=== PATIENT | female | born 1965 | race Hispanic/Latino ===

== ENCOUNTER 2017-04-11 13:59 | Emergency (ER) | payer MEDICAID ==
--- NOTE | 2017-04-11 16:23 | XRay Report ---
FINAL REPORT PROCEDURE: XR SPINE CERVICAL 2-3V TECHNIQUE: Cervical spine radiographs, minimum of four views, including AP, lateral and bilateral oblique projections. HISTORY: NECK PAIN / SWELLING COMPARISON: No prior studies are available for comparison. FINDINGS: Limited evaluation of lower cervical vertebrae due to overlying structures. Postsurgical changes are noted at C4-5 and C5-6. Vertebral body heights and alignment of the upper cervical spine are preserved. Odontoid process appears intact. IMPRESSION: Limitations as above. No acute abnormality is seen. If there are persistent symptoms, further evaluation with CT could be obtained.
[2017-04-11] MEDS ORDERED: DECADRON IM STA (19:05)
[2017-04-11] MEDS ORDERED: PERCOCET 5/325 PO ONE (19:06)
[2017-04-11 20:39] VITALS: BP 127/77
--- NOTE | 2017-04-11 20:53 | Emergency Department Report ---
Entered by LOUIE KAMARA, acting as scribe for OSWALDO THIBODEUAX PA. ED Neck Pain/Injury HPI - General Chief Complaint: Neck Pain/Injury Stated Complaint: NECK PAIN/SWOLLEN Time Seen by Provider: 04/11/17 19:40 Mode of arrival: Ambulatory Limitations: No Limitations - History of Present Illness Initial Comments: 51 y/o female with PMHx of arthritis, asthma, diabetes, GERD, migraines and seizures, presents to the ED c/o pain to back of neck that began 1 week ago. Associated symptoms include swelling and pain to neck but she denies fever and chills. Pain is described as sharp and 9/10 on a severity scale. Patient states she "felt a pop in back of neck last night." No alleviating or aggravating factors. PSHx of neck surgery approximately 1 year ago[address] Patient sees Dr. Javon Estrella who is a neurosurgeon that did her next surgery and she says she has chronic neck problem but is just gotten worse. He denies any new injury to her neck. She has an appointment with Dr. Javon Malone later on this month. Denies any numbness or tingling to extremities. NKDA. GAN Complaint: neck pain Onset/Timin -: week(s) Place: home Severity: severe Severity scale (0 -10): 9 Quality: sharp Consistency: constant Improves With: immobilization Worsens With: movement of neck Context: other (chronic neck pain status post surgery) Associated Symptoms: nausea. denies: headache, fever, numbness, tingling, weakness, vertigo, difficulty walking, swollen glands, difficulty swallowing, vomiting Treatments Prior to Arrival: none - Related Data Home Medications Medication Instructions Recorded Confirmed Last Taken Albuterol Sulfate [Albuterol 0.63% 0.63 mg IH Q6H 01/21/15 09/23/16 04/22/15 NEBS] Aspirin [Aspirin BABY CHEW TAB] 81 mg PO QPM 01/21/15 09/23/16 04/22/15 Beclomethasone Dipropionat(Nf) 2 inhalation IH TID 01/21/15 09/23/16 04/22/15 [Qvar 40MCG] Diazepam 5 mg PO TID 01/21/15 09/23/16 04/22/15 Fluticasone [Flonase] 1 spray NS QDAY 01/21/15 09/23/16 04/22/15 Ranitidine HCl [Ranitidine 150mg 150 mg PO BID 01/21/15 09/23/16 04/22/15 Cap] Previous Rx's Medication Instructions Recorded Last Taken Type Ondansetron [Zofran Odt] 4 mg PO Q8HR #20 tab.rapdis 10/24/15 Unknown Rx ALBUTEROL Inhaler [ProAir HFA 2 puff IH QID PRN #1 inhalation 09/15/16 Unknown Rx Inhaler] Prednisone [predniSONE 10 mg 10 mg PO .TAPER #1 tab.ds.pk 09/15/16 Unknown Rx (6-Day Pack, 21 Tabs)] Citalopram [celeXA] 20 mg PO QHS #30 tablet 09/25/16 Unknown Rx Fluticasone/Salmeterol [Advair 1 puff IH BID #1 blst.w.dev 09/25/16 Unknown Rx Diskus 500-50 mcg] Montelukast [Singulair] 10 mg PO QPM #30 tablet 09/25/16 Unknown Rx Prednisone [predniSONE 10 mg 10 mg PO .TAPER #1 tab.ds.pk 09/25/16 Unknown Rx (6-Day Pack, 21 Tabs)] Spironolactone [Aldactone] 25 mg PO QDAY #30 tablet 09/25/16 Unknown Rx metFORMIN [Glucophage] 500 mg PO QAM #60 tablet 09/25/16 Unknown Rx traMADol [Ultram 50 MG tab] 50 mg PO Q6HR PRN #20 tablet 04/11/17 Unknown Rx Allergies Allergy/AdvReac Type Severity Reaction Status Date / Time topiramate [From Topamax] Allergy Seizure Verified 04/11/17 14:53 shellfish Allergy Hives Uncoded 04/11/17 14:53 paragoric AdvReac Unknown Uncoded 04/11/17 14:53 ED Review of Systems Comment: All other systems reviewed and negative Constitutional: denies: chills, fever, weakness Eyes: denies: eye pain, eye discharge ENT: denies: throat pain Respiratory: no symptoms reported Cardiovascular: denies: chest pain, palpitations, edema, syncope Gastrointestinal: denies: nausea, vomiting, diarrhea Musculoskeletal: back pain, arthralgia, other (neck pain and swelling). denies : joint swelling Skin: denies: rash Neurological: other. denies: headache, weakness, numbness, paresthesias, confusion, abnormal gait, vertigo ED Past Medical Hx - Past Medical History Previous Medical History?: Yes Hx Congestive Heart Failure: No Hx Diabetes: Yes Hx GERD: Yes Hx Arthritis: Yes Hx Headaches / Migraines: Yes Hx Seizures: Yes Hx Asthma: Yes Hx COPD: No Hx Dementia: No Additional medical history: scoliosis, Nerve problems, pinched nerves, neck problems, back problems., "TIA". FIBROMYALGIA - Surgical History Past Surgical History?: Yes Hx Cholecystectomy: Yes Hx Appendectomy: Yes Additional Surgical History: Tubal ligation. NECK SURGERY 2016 - Family History Family history: hypertension - Social History Smoking Status: Never Smoker Substance Use Type: None - Medications Home Medications: Home Medications Medication Instructions Recorded Confirmed Last Taken Type Albuterol Sulfate [Albuterol 0.63% 0.63 mg IH Q6H 01/21/15 09/23/16 04/22/15 History NEBS] Aspirin [Aspirin BABY CHEW TAB] 81 mg PO QPM 01/21/15 09/23/16 04/22/15 History Beclomethasone Dipropionat(Nf) 2 inhalation IH TID 01/21/15 09/23/16 04/22/15 History [Qvar 40MCG] Diazepam 5 mg PO TID 01/21/15 09/23/16 04/22/15 History Fluticasone [Flonase] 1 spray NS QDAY 01/21/15 09/23/16 04/22/15 History Ranitidine HCl [Ranitidine 150mg 150 mg PO BID 01/21/15 09/23/16 04/22/15 History Cap] Ondansetron [Zofran Odt] 4 mg PO Q8HR #20 tab.rapdis 10/24/15 09/23/16 Unknown Rx ALBUTEROL Inhaler [ProAir HFA 2 puff IH QID PRN #1 inhalation 09/15/16 09/23/16 Unknown Rx Inhaler] Prednisone [predniSONE 10 mg 10 mg PO .TAPER #1 tab.ds.pk 09/15/16 09/23/16 Unknown Rx (6-Day Pack, 21 Tabs)] Citalopram [celeXA] 20 mg PO QHS #30 tablet 09/25/16 Unknown Rx Fluticasone/Salmeterol [Advair 1 puff IH BID #1 blst.w.dev 09/25/16 Unknown Rx Diskus 500-50 mcg] Montelukast [Singulair] 10 mg PO QPM #30 tablet 09/25/16 Unknown Rx Prednisone [predniSONE 10 mg 10 mg PO .TAPER #1 tab.ds.pk 09/25/16 Unknown Rx (6-Day Pack, 21 Tabs)] Spironolactone [Aldactone] 25 mg PO QDAY #30 tablet 09/25/16 Unknown Rx metFORMIN [Glucophage] 500 mg PO QAM #60 tablet 09/25/16 Unknown Rx traMADol [Ultram 50 MG tab] 50 mg PO Q6HR PRN #20 tablet 04/11/17 Unknown Rx ED Physical Exam - General Limitations: No Limitations General appearance: alert, in no apparent distress - Head Head exam: Present: atraumatic, normocephalic, normal inspection - Eye Eye exam: Present: normal appearance, PERRL, EOMI Pupils: Present: normal accommodation - ENT ENT exam: Present: normal exam, normal orophraynx, mucous membranes moist - Neck Neck exam: Present: normal inspection, full ROM. Absent: tenderness, meningismus, lymphadenopathy - Expanded Neck Exam Expanded Neck exam: Absent: tenderness, midline deformity, anterior neck swelling, tracheal deviation - Respiratory Respiratory exam: Present: normal lung sounds bilaterally. Absent: wheezes, rales, rhonchi, stridor, chest wall tenderness, accessory muscle use - Cardiovascular Cardiovascular Exam: Present: regular rate, normal rhythm, normal heart sounds - GI/Abdominal GI/Abdominal exam: Present: soft, normal bowel sounds. Absent: distended, tenderness, guarding, rebound, rigid - Extremities Exam Extremities exam: Present: normal inspection, full ROM, normal capillary refill. Absent: tenderness, pedal edema, joint swelling, calf tenderness - Back Exam Back exam: Present: normal inspection, full ROM. 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 Normal 2 point discrimination.). Absent: motor sensory deficit - Psychiatric Psychiatric exam: Present: normal affect, normal mood - Skin Skin exam: Present: warm, dry, intact, normal color. Absent: rash ED Course Vital Signs 04/11/17 04/11/17 04/11/17 14:55 19:28 20:38 Temperature 98.6 F Pulse Rate 91 H 67 Respiratory 17 18 18 Rate Blood Pressure 121/83 Blood Pressure 127/77 [Left] O2 Sat by Pulse 97 100 Oximetry - Reevaluation(s) Reevaluation #1: 04/11/17 20:45 Patient given Percocet 5/325 2 tablets in the emergency room for chronic neck pain and she was also given Decadron 10 mg IM. 04/11/17 20:45 ED Medical Decision Making - Radiology Data Radiology results: report reviewed X-ray of C-spine reveals no acute findings. Patient has hardware from previous surgery. - Medical Decision Making ED Course: Sent here for acute exacerbation of chronic neck pain without any injury. I discussed the patient had x-ray of her C-spine did not show any acute findings. Had surgery with Dr. Javon Malone is following her and she has an appointment to see her later on this month. X-ray of the C-spine revealed no acute finding except for from previous surgery. Patient is neurologically intact without any abnormality neck exam.Patient given Percocet 5/325 2 tablets in the emergency room for chronic neck pain and she was also given Decadron 10 mg IM. Patient pain relieved with Percocet and Decadron. I discussed the diagnosis and treatment plan and she was understanding. Disposition discharged home to follow up with her neurosurgeon as scheduled and she was given prescription for Ultram. Discharged from ER in stable condition with her family member. ED Disposition Clinical Impression: Arthralgia, neck, Chronic neck pain Disposition: - TO HOME OR SELFCARE Is pt being admited?: No Does the pt Need Aspirin: No Condition: Stable Instructions: Arthralgia (ED), Chronic Pain (ED) Additional Instructions: Please call Dr. [place] Malone on Thursday to let her know that we return the emergency for acute exacerbation of chronic neck pain. Please keep your appointment with the neurosurgeon for management of chronic neck pain. Prescriptions: traMADol [Ultram 50 MG tab] 50 mg PO Q6HR PRN #20 tablet PRN Reason: Pain Referrals: PRIMARY CARE, [Primary Care Provider] - 3-5 Days FACUNDO SABILLON MD [Staff Physician] - 04/13/17 Forms: Accompanied Note, Work/School Release Form(ED) This documentation as recorded by the ANH marquez ELIZABETH,accurately reflects the service I personally performed and the decisions made by me,OSWALDO THIBODEAUX, PA.
== END 2017-04-11 21:14 | disposition home or self-care (01) ==
LOC: ED 13:59
DX: M54.2 Cervicalgia (principal); G89.29 Other chronic pain; E11.9 Type 2 diabetes mellitus without complications; K21.9 Gastro-esophageal reflux disease without esophagitis; G43.909 Migraine, unspecified, not intractable, without status migrainosus; M19.90 Unspecified osteoarthritis, unspecified site; J45.909 Unspecified asthma, uncomplicated; R56.9 Unspecified convulsions; Z90.49 Acquired absence of other specified parts of digestive tract; Z91.013 Allergy to seafood; Z88.8 Allergy status to other drugs, medicaments and biological substances; Z91.018 Allergy to other foods
CPT/HCPCS: 72040; 96372; 99283; J1100

== ENCOUNTER 2018-02-03 14:46 | Emergency (ER) | payer MEDICAID ==
[2018-02-03] MEDS ORDERED: LASIX PO ONE (18:57)
--- NOTE | 2018-02-03 18:58 | Emergency Department Report ---
Blank Doc - Documentation Documentation: Patient is a 52-year-old female who is presenting with 2 days of bilateral lower extremity edema. Patient states she's had edema before was usually after using prednisone which she is not on currently. Patient also states that she is has some dyspnea with exertion as well as some chest tightness after running some errands today. Patient states that this is improved with rest. Patient states walking doesn't make her short of breath now which she didn't in the past. Patient denies any resting chest pain cough shortness of breath fevers chills at this time. Patient will have laboratory studies ordered chest x-ray BNP and troponin. A
[2018-02-03 19:09] LABS: Basophils # (Auto) 0.1 K/mm3 (0.0-0.1); Basophils % (Auto) 0.8 % (0.0-1.8); Eosinophils # (Auto) 0.3 K/mm3 (0.0-0.4); Eosinophils % (Auto) 2.8 % (0.0-4.3); Hematocrit 39.2 % (30.3-42.9); Hemoglobin 13.2 gm/dl (10.1-14.3); Lymphocytes # (Auto) 2.8 K/mm3 (1.2-5.4); Lymphocytes % (Auto) 29.6 % (13.4-35.0); Mean Corpuscular HGB Conc 34 % (30-34); Mean Corpuscular Hemoglobin 31 pg (28-32); Mean Corpuscular Volume 91 fl (79-97); Monocytes # (Auto) 0.8 K/mm3 (0.0-0.8); Monocytes % (Auto) 8.9 % (0.0-7.3); Platelet Count 263 K/mm3 (140-440); Red Blood Count 4.32 M/mm3 (3.65-5.03); Red Cell Distribution Width 13.4 % (13.2-15.2)
[2018-02-03 19:20] LABS: BUN/Creatinine Ratio 30; Blood Urea Nitrogen 21 mg/dL (7-17); Calcium 8.6 mg/dL (8.4-10.2); Hemolysis Index 9
--- NOTE | 2018-02-03 20:22 | XRay Report ---
FINAL REPORT EXAM: XR CHEST ROUTINE 2V HISTORY: dyspnea wit exertion TECHNIQUE: upright single view chest PRIORS: Comparison is November 19, 2017 FINDINGS: Cardiac and mediastinal contours are unremarkable. No focal pulmonary infiltrate is identified. No pleural fluid collection seen. Pulmonary vasculature is unremarkable. IMPRESSION: Negative single-view chest
--- NOTE | 2018-02-03 21:41 | Emergency Department Report ---
HPI - General Chief Complaint: Chest Pain Time Seen by Provider: 02/03/18 18:50 - HPI HPI: Room 18 The patient is a 52-year-old female presented with a chief complaint chest pain. The patient states for the past 2 months she's had exertional chest pain and dyspnea on exertion. Patient states that normally resolves with rest. The patient states today while running errands or chest tightness return but did not resolve with rest. Patient states she continued to have chest tightness for a 1.5 hours associated with shortness of breath. Patient denies nausea/ vomiting or diaphoresis. Patient states she has not had a stress test in over 5 years and has never had a cardiac catheterization. The patient currently denies chest pain Location: Chest Duration: [See above] Quality: Tightness Severity: Currently 0/10 Modifying factors: Brought on by exertion, see above Context: [see above] Mode of transportation: Unknown ED Past Medical Hx - Past Medical History Hx Diabetes: Yes Hx GERD: Yes Hx Arthritis: Yes Hx Headaches / Migraines: Yes Hx Seizures: Yes Hx Asthma: Yes Additional medical history: scoliosis, Nerve problems, pinched nerves, neck problems, back problems., "TIA". FIBROMYALGIA - Surgical History Hx Cholecystectomy: Yes Hx Appendectomy: Yes Additional Surgical History: Tubal ligation. NECK SURGERY 2016 - Family History Family history: no significant - Social History Smoking Status: Never Smoker Substance Use Type: None (denies illicit drug use) - Medications Home Medications: Home Medications Medication Instructions Recorded Confirmed Last Taken Type Albuterol Sulfate [Albuterol 0.63% 0.63 mg IH Q6H 01/21/15 09/23/16 2 Days Ago History NEBS] ~11/18/17 Aspirin [Aspirin BABY CHEW TAB] 81 mg PO QPM 01/21/15 09/23/16 2 Days Ago History ~11/18/17 Diazepam 5 mg PO TID 01/21/15 09/23/16 2 Days Ago History ~11/18/17 Fluticasone [Flonase] 1 spray NS QDAY 01/21/15 09/23/16 04/22/15 History Ranitidine HCl [Ranitidine 150mg 150 mg PO BID 01/21/15 09/23/16 2 Days Ago History Cap] ~11/18/17 Ondansetron [Zofran ODT TAB] 4 mg PO Q8HR #20 tab.rapdis 10/24/15 09/23/16 Unknown Rx ALBUTEROL Inhaler [ProAir HFA 2 puff IH QID PRN #1 inhalation 09/15/16 09/23/16 2 Days Ago Rx Inhaler] ~11/18/17 Fluticasone/Salmeterol [Advair 1 puff IH BID #1 blst.w.dev 09/25/16 2 Days Ago Rx Diskus 500-50 mcg] ~11/18/17 traMADol [Ultram 50 MG tab] 50 mg PO Q6HR PRN #20 tablet 04/11/17 11/20/17 Unknown Rx Amitriptyline 100 mg PO QHS 11/20/17 11/20/17 2 Days Ago History ~11/18/17 Bumetanide 0.5 mg PO QAM 11/20/17 11/20/17 2 Days Ago History ~11/18/17 Buspar 15 mg PO BID 11/20/17 11/20/17 2 Days Ago History ~11/18/17 Citalopram [celeXA] 40 mg PO QHS 11/20/17 11/20/17 2 Days Ago History ~11/18/17 Lisinopril 10 mg PO QAM 11/20/17 11/20/17 2 Days Ago History ~11/18/17 Prednisone [predniSONE 5 mg (6-Day 5 mg PO .TAPER #1 tab.ds.pk 11/20/17 Unknown Rx Pack, 21 Tabs)] metFORMIN [Glucophage] 500 mg PO BID 11/20/17 11/20/17 2 Days Ago History ~11/18/17 ED Review of Systems ROS: Stated complaint: CHEST PAIN Other details as noted in HPI Constitutional: denies: diaphoresis Respiratory: shortness of breath, SOB with exertion Cardiovascular: chest pain, dyspnea on exertion Gastrointestinal: denies: nausea, vomiting Physical Exam - Physical Exam Vital Signs: Vital Signs 02/03/18 15:04 Temperature 98.6 F Pulse Rate 78 Respiratory 16 Rate Blood Pressure 155/87 O2 Sat by Pulse 98 Oximetry Physical Exam: GENERAL: The patient is well-developed well-nourished female sitting in chair not appearing to be in acute distress. [] HEENT: Normocephalic. Atraumatic. Extraocular motions are intact. Patient has moist mucous membranes. NECK: Supple. Trachea midline CHEST/LUNGS: Clear to auscultation. There is no respiratory distress noted. HEART/CARDIOVASCULAR: Regular. There is no tachycardia. There is no gallop rub or murmur. ABDOMEN: Abdomen is soft, nontender. Patient has normal bowel sounds. There is no abdominal distention. SKIN: There is no rash. There is no edema. There is no diaphoresis. NEURO: The patient is awake, alert, and oriented. The patient is cooperative. The patient has normal speech MUSCULOSKELETAL: There is no evidence of acute injury. ED Course Vital Signs 02/03/18 15:04 Temperature 98.6 F Pulse Rate 78 Respiratory 16 Rate Blood Pressure 155/87 O2 Sat by Pulse 98 Oximetry ED Medical Decision Making - Lab Data Result diagrams: 02/03/18 18:59 02/03/18 18:59 Laboratory Tests 02/03/18 02/03/18 18:59 18:59 WBC 9.4 RBC 4.32 Hgb 13.2 Hct 39.2 MCV 91 MCH 31 MCHC 34 RDW 13.4 Plt Count 263 Lymph % (Auto) 29.6 [place] % (Auto) 8.9 H Eos % (Auto) 2.8 Baso % (Auto) 0.8 Lymph # 2.8 [place] # 0.8 Eos # 0.3 Baso # 0.1 Seg Neutrophils % 57.9 Seg Neutrophils # 5.4 Sodium 141 Potassium 4.2 Chloride 100.6 Carbon Dioxide 26 Anion Gap 19 BUN 21 H Creatinine 0.7 Estimated GFR > 60 BUN/Creatinine Ratio 30 Glucose 107 H Calcium 8.6 Troponin T < 0.010 NT-Pro-B Natriuret Pep 300.9 - EKG Data -: EKG Interpreted by Me EKG shows normal: sinus rhythm Rate: normal - EKG Data When compared to previous EKG there are: previous EKG unavailable Interpretation: other (no ischemic changes seen) - Radiology Data Radiology results: report reviewed, image reviewed (chest x-ray) interpreted by me: Chest x-ray-no focal infiltrates, no pneumothorax - Medical Decision Making I discussed with the patient my concern for her chest pain which is straight from her baseline exertional chest pain. I explained that she may be having an acute coronary syndrome at this moment and that I recommend she be admitted to the hospital. Patient verbalized understanding of increased morbidity and/or mortality should she leave the hospital AGAINST MEDICAL ADVICE station must take care of her family members at home. Patient advised to return to the hospital neatly should she change her mind - Differential Diagnosis ACS, unstable angina, exertional chest pain, GERD, pericarditis Critical care attestation.: If time is entered above; I have spent that time in minutes in the direct care of this critically ill patient, excluding procedure time. ED Disposition Clinical Impression: Unstable angina, Chest pain Disposition: [id number]-07 LEFT AGAINST MED ADVICE Is pt being admited?: No Does the pt Need Aspirin: Yes Condition: Undetermined Instructions: Angina (ED), Chest Pain (ED) Additional Instructions: Return to the emergency department immediately should you change your mind or develop worsening symptoms, fever, inability to tolerate food or liquid or any other concerns. Referrals: PRIMARY CARE, [Primary Care Provider] - 3-5 Days Time of Disposition: 21:37 (patient leaving AMA)
[2018-02-03 22:07] VITALS: BP 133/82
== END 2018-02-03 22:05 | disposition left against medical advice (07) ==
LOC: ED 14:46
DX: R07.89 Other chest pain (principal); E11.9 Type 2 diabetes mellitus without complications; K21.9 Gastro-esophageal reflux disease without esophagitis; M19.90 Unspecified osteoarthritis, unspecified site; G43.909 Migraine, unspecified, not intractable, without status migrainosus
CPT/HCPCS: 36415; 71046; 80048; 83880; 84484; 85025; 93005; 93010; 99284

== ENCOUNTER 2018-04-29 17:21 | Emergency (ER) | payer MEDICAID ==
[2018-04-29] MEDS ORDERED: PROVENTIL IH ONE ×3 (17:55→18:12)
[2018-04-29] MEDS ORDERED: ATROVENT IH ONE ×3 (17:55→18:12)
[2018-04-29] MEDS ORDERED: DELTASONE PO ONE (18:28)
--- NOTE | 2018-04-29 18:33 | Emergency Department Report ---
ED Shortness of Breath HPI - General Chief Complaint: Dyspnea/Respdistress Stated Complaint: SOB Time Seen by Provider: 04/29/18 18:28 Source: patient Mode of arrival: Ambulatory Limitations: No Limitations - History of Present Illness Initial Comments: Ms Hawley is a 52 year-old woman with hx of HTN, COPD, fibromyalgia, DM who presents with shortness of breath. [place] like she was becoming more short of breath this afternoon. Took two breathing treatments at home but they were not helping. Took 10mg prednisone as well. Feels like previous COPD exacerabtions. No chest pain. No orthopnea. Normal PO. No fevers. No cough. No sputum. No other complaints. MD Complaint: shortness of breath -: Sudden Worsens With: exertion Known History Of: COPD Associated Symptoms: denies other symptoms Treatments Prior to Arrival: bronchodilator - Related Data Home Oxygen Therapy: No Home Medications Medication Instructions Recorded Confirmed Last Taken Albuterol Sulfate [Albuterol 0.63% 0.63 mg IH Q6H 01/21/15 09/23/16 2 Days Ago NEBS] ~11/18/17 Aspirin [Aspirin BABY CHEW TAB] 81 mg PO QPM 01/21/15 09/23/16 2 Days Ago ~11/18/17 Diazepam 5 mg PO TID 01/21/15 09/23/16 2 Days Ago ~11/18/17 Fluticasone [Flonase] 1 spray NS QDAY 01/21/15 09/23/16 04/22/15 Ranitidine HCl [Ranitidine 150mg 150 mg PO BID 01/21/15 09/23/16 2 Days Ago Cap] ~11/18/17 Amitriptyline 100 mg PO QHS 11/20/17 11/20/17 2 Days Ago ~11/18/17 Bumetanide 0.5 mg PO QAM 11/20/17 11/20/17 2 Days Ago ~11/18/17 Buspar 15 mg PO BID 11/20/17 11/20/17 2 Days Ago ~11/18/17 Citalopram [celeXA] 40 mg PO QHS 11/20/17 11/20/17 2 Days Ago ~11/18/17 Lisinopril 10 mg PO QAM 11/20/17 11/20/17 2 Days Ago ~11/18/17 metFORMIN [Glucophage] 500 mg PO BID 11/20/17 11/20/17 2 Days Ago ~11/18/17 Previous Rx's Medication Instructions Recorded Last Taken Type Ondansetron [Zofran ODT TAB] 4 mg PO Q8HR #20 tab.rapdis 10/24/15 Unknown Rx ALBUTEROL Inhaler [ProAir HFA 2 puff IH QID PRN #1 inhalation 09/15/16 2 Days Ago Rx Inhaler] ~11/18/17 Fluticasone/Salmeterol [Advair 1 puff IH BID #1 blst.w.dev 09/25/16 2 Days Ago Rx Diskus 500-50 mcg] ~11/18/17 traMADol [Ultram 50 MG tab] 50 mg PO Q6HR PRN #20 tablet 04/11/17 Unknown Rx Prednisone [predniSONE 5 mg (6-Day 5 mg PO .TAPER #1 tab.ds.pk 11/20/17 Unknown Rx Pack, 21 Tabs)] Prednisone [predniSONE 10 mg 10 mg PO .TAPER #1 tab.ds.pk 04/29/18 Unknown Rx (6-Day Pack, 21 Tabs)] Allergies Allergy/AdvReac Type Severity Reaction Status Date / Time topiramate [From Topamax] Allergy Seizure Verified 02/03/18 15:04 shellfish Allergy Hives Uncoded 04/11/17 14:53 paragoric AdvReac Unknown Uncoded 04/11/17 14:53 ED Review of Systems ROS: Stated complaint: SOB Other details as noted in HPI Comment: All other systems reviewed and negative ED Past Medical Hx - Past Medical History Previous Medical History?: Yes Hx Congestive Heart Failure: No Hx Diabetes: Yes Hx GERD: Yes Hx Arthritis: Yes Hx Headaches / Migraines: Yes Hx Seizures: Yes Hx Asthma: Yes Hx COPD: No Hx Dementia: No Additional medical history: scoliosis, Nerve problems, pinched nerves, neck problems, back problems., "TIA". FIBROMYALGIA - Surgical History Past Surgical History?: Yes Hx Cholecystectomy: Yes Hx Appendectomy: Yes Additional Surgical History: Tubal ligation. NECK SURGERY 2016 - Social History Smoking Status: Never Smoker Substance Use Type: Alcohol, Prescribed - Medications Home Medications: Home Medications Medication Instructions Recorded Confirmed Last Taken Type Albuterol Sulfate [Albuterol 0.63% 0.63 mg IH Q6H 01/21/15 09/23/16 2 Days Ago History NEBS] ~11/18/17 Aspirin [Aspirin BABY CHEW TAB] 81 mg PO QPM 01/21/15 09/23/16 2 Days Ago History ~11/18/17 Diazepam 5 mg PO TID 01/21/15 09/23/16 2 Days Ago History ~11/18/17 Fluticasone [Flonase] 1 spray NS QDAY 01/21/15 09/23/16 04/22/15 History Ranitidine HCl [Ranitidine 150mg 150 mg PO BID 01/21/15 09/23/16 2 Days Ago History Cap] ~11/18/17 Ondansetron [Zofran ODT TAB] 4 mg PO Q8HR #20 tab.rapdis 10/24/15 09/23/16 Unknown Rx ALBUTEROL Inhaler [ProAir HFA 2 puff IH QID PRN #1 inhalation 09/15/16 09/23/16 2 Days Ago Rx Inhaler] ~11/18/17 Fluticasone/Salmeterol [Advair 1 puff IH BID #1 blst.w.dev 09/25/16 2 Days Ago Rx Diskus 500-50 mcg] ~11/18/17 traMADol [Ultram 50 MG tab] 50 mg PO Q6HR PRN #20 tablet 04/11/17 11/20/17 Unknown Rx Amitriptyline 100 mg PO QHS 11/20/17 11/20/17 2 Days Ago History ~11/18/17 Bumetanide 0.5 mg PO QAM 11/20/17 11/20/17 2 Days Ago History ~11/18/17 Buspar 15 mg PO BID 11/20/17 11/20/17 2 Days Ago History ~11/18/17 Citalopram [celeXA] 40 mg PO QHS 11/20/17 11/20/17 2 Days Ago History ~11/18/17 Lisinopril 10 mg PO QAM 11/20/17 11/20/17 2 Days Ago History ~11/18/17 Prednisone [predniSONE 5 mg (6-Day 5 mg PO .TAPER #1 tab.ds.pk 11/20/17 Unknown Rx Pack, 21 Tabs)] metFORMIN [Glucophage] 500 mg PO BID 11/20/17 11/20/17 2 Days Ago History ~11/18/17 Prednisone [predniSONE 10 mg 10 mg PO .TAPER #1 tab.ds.pk 04/29/18 Unknown Rx (6-Day Pack, 21 Tabs)] ED Physical Exam - General Limitations: No Limitations General appearance: alert, in no apparent distress - Head Head exam: Present: atraumatic, normocephalic - Eye Eye exam: Present: normal appearance - ENT ENT exam: Present: mucous membranes moist - Neck Neck exam: Present: normal inspection - Respiratory Respiratory exam: Present: normal lung sounds bilaterally, wheezes. Absent: respiratory distress, rales, rhonchi, accessory muscle use - Cardiovascular Cardiovascular Exam: Present: regular rate, normal rhythm. Absent: systolic murmur, diastolic murmur, rubs, gallop - GI/Abdominal GI/Abdominal exam: Present: soft. Absent: distended, tenderness - Extremities Exam Extremities exam: Present: normal inspection - Back Exam Back exam: Present: normal inspection - Neurological Exam Neurological exam: Present: alert, oriented X3 - Psychiatric Psychiatric exam: Present: normal affect, normal mood - Skin Skin exam: Present: warm, dry, intact, normal color. Absent: rash ED Course Vital Signs 04/29/18 04/29/18 04/29/18 17:27 18:10 18:15 Temperature 99.9 F H Pulse Rate 77 Respiratory 22 Rate Blood Pressure 185/149 133/68 O2 Sat by Pulse 94 100 100 Oximetry 04/29/18 04/29/18 04/29/18 18:21 18:25 18:31 Temperature Pulse Rate Respiratory Rate Blood Pressure 133/68 133/68 126/50 O2 Sat by Pulse 100 85 100 Oximetry 04/29/18 04/29/18 04/29/18 18:35 18:41 18:45 Temperature Pulse Rate Respiratory Rate Blood Pressure 126/50 126/50 126/50 O2 Sat by Pulse 95 95 94 Oximetry 04/29/18 04/29/18 04/29/18 18:53 18:55 19:01 Temperature Pulse Rate Respiratory Rate Blood Pressure 126/50 126/50 132/64 O2 Sat by Pulse 97 96 93 Oximetry 04/29/18 19:13 Temperature 98 F Pulse Rate Respiratory Rate Blood Pressure O2 Sat by Pulse Oximetry ED Medical Decision Making - Lab Data Result diagrams: 04/29/18 18:21 04/29/18 18:21 Lab Results 04/29/18 04/29/18 Range/Units 18:21 18:21 WBC 8.7 (4.5-11.0) K/mm3 RBC 4.42 (3.65-5.03) M/mm3 Hgb 13.1 (10.1-14.3) gm/dl Hct 40.5 (30.3-42.9) % MCV 92 (79-97) fl MCH 30 (28-32) pg MCHC 32 (30-34) % RDW 13.2 (13.2-15.2) % Plt Count 261 (140-440) K/mm3 Lymph % (Auto) 37.9 H (13.4-35.0) % [place] % (Auto) 9.4 H (0.0-7.3) % Eos % (Auto) 3.9 (0.0-4.3) % Baso % (Auto) 0.6 (0.0-1.8) % Lymph # 3.3 (1.2-5.4) K/mm3 [place] # 0.8 (0.0-0.8) K/mm3 Eos # 0.3 (0.0-0.4) K/mm3 Baso # 0.1 (0.0-0.1) K/mm3 Seg Neutrophils % 48.2 (40.0-70.0) % Seg Neutrophils # 4.2 (1.8-7.7) K/mm3 Sodium 140 (137-145) mmol/L Potassium 4.1 (3.6-5.0) mmol/L Chloride 100.9 (98-107) mmol/L Carbon Dioxide 28 (22-30) mmol/L Anion Gap 15 mmol/L BUN 15 (7-17) mg/dL Creatinine 0.8 (0.7-1.2) mg/dL Estimated GFR > 60 ml/min BUN/Creatinine Ratio 19 % Glucose 98 (65-100) mg/dL Calcium 9.0 (8.4-10.2) mg/dL Troponin T < 0.010 (0.00-0.029) ng/mL - EKG Data 1920: HR 81, sinus with 1st degree AV block, normal axis, intervals wnl, no ST changes concerning for acute ischemia - Radiology Data Radiology results: report reviewed, image reviewed - Medical Decision Making Ms Hawley is a 52 year-old woman who presents with shortness of breath. Less than 1 day. feels like previous COPD exacerbations. No chest pain, no cough, no sputum. Triage reports biphasic wheezing. I examine her partially through a duoneb, only with mild expiratory wheeze, good air movement in all morel. Ssupect this is COPD exacerbation, PTX, PNA, ACS. CXR clear. Labs wnl. Trop neg. EKG non-ischemic. No wheezing after duoneb and 30mg prednisone. Home with prednisone taper, care instructions and return precautions. Critical care attestation.: If time is entered above; I have spent that time in minutes in the direct care of this critically ill patient, excluding procedure time. ED Disposition Clinical Impression: COPD exacerbation Disposition: DC-01 TO HOME OR SELFCARE Is pt being admited?: No Does the pt Need Aspirin: No Condition: Stable Instructions: Chronic Obstructive Pulmonary Disease (ED) Prescriptions: Prednisone [predniSONE 10 mg (6-Day Pack, 21 Tabs)] 10 mg PO .TAPER #1 tab.ds.pk
[2018-04-29 19:10] VITALS: BP 132/64
[2018-04-29 19:13] LABS: Basophils # (Auto) 0.1 K/mm3 (0.0-0.1); Basophils % (Auto) 0.6 % (0.0-1.8); Eosinophils # (Auto) 0.3 K/mm3 (0.0-0.4); Eosinophils % (Auto) 3.9 % (0.0-4.3); Hematocrit 40.5 % (30.3-42.9); Hemoglobin 13.1 gm/dl (10.1-14.3); Lymphocytes # (Auto) 3.3 K/mm3 (1.2-5.4); Lymphocytes % (Auto) 37.9 % (13.4-35.0); Mean Corpuscular HGB Conc 32 % (30-34); Mean Corpuscular Hemoglobin 30 pg (28-32); Mean Corpuscular Volume 92 fl (79-97); Monocytes # (Auto) 0.8 K/mm3 (0.0-0.8); Monocytes % (Auto) 9.4 % (0.0-7.3); Platelet Count 261 K/mm3 (140-440); Red Blood Count 4.42 M/mm3 (3.65-5.03); Red Cell Distribution Width 13.2 % (13.2-15.2)
[2018-04-29 19:20] LABS: BUN/Creatinine Ratio 19; Blood Urea Nitrogen 15 mg/dL (7-17); Hemolysis Index 6
--- NOTE | 2018-04-29 20:04 | XRay Report ---
FINAL REPORT PROCEDURE: XR CHEST ROUTINE 2V TECHNIQUE: PA and lateral chest radiographs were obtained. CPT 38595 HISTORY: Shortness of breath COMPARISON: Prior chest x-ray 02/03/2018 FINDINGS: Heart size appears normal. Pulmonary vasculature is not significantly distended. There is improved aeration compared to the prior study. No focal infiltrates masses or effusions are identified. No acute bony abnormalities are seen. IMPRESSION: No evidence of acute cardiac or pulmonary process..
== END 2018-04-29 20:10 | disposition home or self-care (01) ==
LOC: ED 17:21
DX: J44.1 Chronic obstructive pulmonary disease with (acute) exacerbation (principal); I10 Essential (primary) hypertension; E11.9 Type 2 diabetes mellitus without complications; K21.9 Gastro-esophageal reflux disease without esophagitis; M19.90 Unspecified osteoarthritis, unspecified site; G43.909 Migraine, unspecified, not intractable, without status migrainosus; Z79.82 Long term (current) use of aspirin; Z88.8 Allergy status to other drugs, medicaments and biological substances; Z91.013 Allergy to seafood
CPT/HCPCS: 36415; 71046; 80048; 84484; 85025; 93005; 93010; 94640; 99284; J7512

== ENCOUNTER 2018-11-08 16:30 | Emergency (ER) | payer MEDICAID ==
[2018-11-08 16:54] VITALS: BP 124/73
[2018-11-08 17:24] LABS: Hematocrit 43.8 % (30.3-42.9); Hemoglobin 14.7 gm/dl (10.1-14.3); Mean Corpuscular HGB Conc 34 % (30-34); Mean Corpuscular Volume 94 fl (79-97); Platelet Count 331 K/mm3 (140-440); Red Blood Count 4.68 M/mm3 (3.65-5.03); Red Cell Distribution Width 13.1 % (13.2-15.2)
[2018-11-08 17:38] LABS: BUN/Creatinine Ratio 15; Blood Urea Nitrogen 12 mg/dL (7-17); Calcium 9.2 mg/dL (8.4-10.2); Hemolysis Index 2
== END 2018-11-08 20:57 | disposition left against medical advice (07) ==
LOC: ED 16:30
DX: R07.9 Chest pain, unspecified (principal); Z53.21 Procedure and treatment not carried out due to patient leaving prior to being seen by health care provider
CPT/HCPCS: 36415; 80048; 84484; 85027; 93005; 93010; 99283

== ENCOUNTER 2018-12-02 12:27 | Emergency (ER) | payer MEDICAID ==
[2018-12-02 12:40] VITALS: BP 145/62
[2018-12-02] MEDS ORDERED: IBUPROFEN PO ONE (13:01)
--- NOTE | 2018-12-02 13:14 | Emergency Department Report ---
ED Lower Extremity HPI - General Chief Complaint: Extremity Injury, Lower Stated Complaint: RT FOOT INJURY/PAIN Time Seen by Provider: 12/02/18 12:59 Source: patient Mode of arrival: Ambulatory Limitations: No Limitations - History of Present Illness Initial Comments: This is a 53-year-old female nontoxic, well nourished in appearance, no acute signs of distress presents to the ED with c/o of right foot pain. Patient stated that she fell and hit her foot a few days ago. Patient denies any other trauma. Patient denies any numbness, tingling, fever, chills, nausea, vomiting, chest pain, shortness of breath, headache, stiff neck. Patient denies any joint swelling or joint redness. Patient denies decreased range of motion. Patient stated has decreased gait due to pain. Patient stated allergies to Lyrica, Topamax, and Paragoric. MD Complaint: foot injury -: days(s) Injury: Foot: Right Place: home Severity: mild Severity scale (0 -10): 8 Improves With: immobilization Worsens With: weight bearing, movement, palpation Associated Symptoms: swelling, able to partially bear weight, ambulatory. denies: snap/pop sensation, numbness, tingling, unable to bear weight - Related Data Home Medications Medication Instructions Recorded Confirmed Last Taken Aspirin [Aspirin BABY CHEW TAB] 81 mg PO QPM 01/21/15 10/11/18 2 Days Ago ~11/18/17 Fluticasone [Flonase] 1 spray NS QDAY 01/21/15 10/11/18 04/22/15 raNITIdine HCl [Ranitidine 150mg 150 mg PO BID 01/21/15 10/11/18 2 Days Ago Cap] ~11/18/17 Citalopram [celeXA] 40 mg PO QHS 11/20/17 10/11/18 2 Days Ago ~11/18/17 metFORMIN [Glucophage] 500 mg PO BID 11/20/17 10/11/18 2 Days Ago ~11/18/17 Albuterol Sulfate [Proventil Hfa] 2 puff IH Q4HR PRN 10/11/18 10/11/18 Unknown Fluticasone/Salmeterol [Advair 1 each IH BID 10/11/18 10/11/18 Unknown 500-50 Diskus] HYDROcodone/APAP 10-325 [[place] 1 each PO Q6HR PRN 10/11/18 10/11/18 Unknown 10/325] Simvastatin [Zocor] 10 mg PO HS 10/11/18 10/11/18 Unknown Previous Rx's Medication Instructions Recorded Last Taken Type Amitriptyline [Elavil] 100 mg PO QHS tablet 07/11/18 Unknown Rx Bumetanide [Bumex 1 mg tab] 0.5 mg PO QDAY tablet 07/11/18 Unknown Rx Lisinopril [Zestril TAB] 10 mg PO QDAY tablet 07/11/18 Unknown Rx busPIRone [Buspar] 15 mg PO BID tablet 07/11/18 Unknown Rx ALBUTEROL Inhaler (OR & NICU) 2 puff IH QID PRN #1 inhalation 08/26/18 Unknown Rx [ProAir HFA Inhaler] Ipratropium/Albuterol Sulfate 1 ampul IH Q6HRT PRN #30 ampul.neb 08/26/18 Unknown Rx [DUONEB *Not for PRN Use*] Prednisone [predniSONE 10 mg 10 mg PO .TAPER #1 tab.ds.pk 10/13/18 Unknown Rx (6-Day Pack, 21 Tabs)] prednisoLONE [Millipred Dp] 5 mg PO QDAY #100 tab.ds.pk 10/13/18 Unknown Rx Ibuprofen [Motrin] 600 mg PO Q8H PRN #20 tablet 12/02/18 Unknown Rx Allergies Allergy/AdvReac Type Severity Reaction Status Date / Time pregabalin [From Lyrica] Allergy Unknown Verified 12/02/18 12:36 topiramate [From Topamax] Allergy Seizure Verified 02/03/18 15:04 shellfish Allergy Hives Uncoded 04/11/17 14:53 paragoric AdvReac Unknown Uncoded 04/11/17 14:53 ED Review of Systems ROS: Stated complaint: RT FOOT INJURY/PAIN Other details as noted in HPI Constitutional: denies: chills, fever Eyes: denies: eye pain, eye discharge, vision change ENT: denies: ear pain, throat pain Respiratory: denies: cough, shortness of breath, wheezing Cardiovascular: denies: chest pain, palpitations Endocrine: no symptoms reported Gastrointestinal: denies: abdominal pain, nausea, diarrhea Genitourinary: denies: urgency, dysuria, discharge Musculoskeletal: denies: back pain, joint swelling, arthralgia Skin: denies: rash, lesions Neurological: denies: headache, weakness, paresthesias Psychiatric: denies: anxiety, depression Hematological/Lymphatic: denies: easy bleeding, easy bruising ED Past Medical Hx - Past Medical History Previous Medical History?: Yes Hx Hypertension: Yes Hx Congestive Heart Failure: No Hx Diabetes: Yes Hx GERD: Yes Hx Arthritis: Yes Hx Headaches / Migraines: Yes Hx Seizures: Yes Hx Asthma: Yes Hx COPD: No Hx HIV: No Additional medical history: scoliosis, Nerve problems, pinched nerves, neck problems, back problems., "TIA". FIBROMYALGIA - Surgical History Past Surgical History?: Yes Hx Cholecystectomy: Yes Hx Appendectomy: Yes Additional Surgical History: Tubal ligation. NECK SURGERY 2016 - Social History Smoking Status: Never Smoker Substance Use Type: None - Medications Home Medications: Home Medications Medication Instructions Recorded Confirmed Last Taken Type Aspirin [Aspirin BABY CHEW TAB] 81 mg PO QPM 01/21/15 10/11/18 2 Days Ago History ~11/18/17 Fluticasone [Flonase] 1 spray NS QDAY 01/21/15 10/11/18 04/22/15 History raNITIdine HCl [Ranitidine 150mg 150 mg PO BID 01/21/15 10/11/18 2 Days Ago History Cap] ~11/18/17 Citalopram [celeXA] 40 mg PO QHS 11/20/17 10/11/18 2 Days Ago History ~11/18/17 metFORMIN [Glucophage] 500 mg PO BID 11/20/17 10/11/18 2 Days Ago History ~11/18/17 Amitriptyline [Elavil] 100 mg PO QHS tablet 07/11/18 10/11/18 Unknown Rx Bumetanide [Bumex 1 mg tab] 0.5 mg PO QDAY tablet 07/11/18 10/11/18 Unknown Rx Lisinopril [Zestril TAB] 10 mg PO QDAY tablet 07/11/18 10/11/18 Unknown Rx busPIRone [Buspar] 15 mg PO BID tablet 07/11/18 10/11/18 Unknown Rx ALBUTEROL Inhaler (OR & NICU) 2 puff IH QID PRN #1 inhalation 08/26/18 10/11/18 Unknown Rx [ProAir HFA Inhaler] Ipratropium/Albuterol Sulfate 1 ampul IH Q6HRT PRN #30 ampul.neb 08/26/18 10/11/18 Unknown Rx [DUONEB *Not for PRN Use*] Albuterol Sulfate [Proventil Hfa] 2 puff IH Q4HR PRN 10/11/18 10/11/18 Unknown History Fluticasone/Salmeterol [Advair 1 each IH BID 10/11/18 10/11/18 Unknown History 500-50 Diskus] HYDROcodone/APAP 10-325 [[place] 1 each PO Q6HR PRN 10/11/18 10/11/18 Unknown History 10/325] Simvastatin [Zocor] 10 mg PO HS 10/11/18 10/11/18 Unknown History Prednisone [predniSONE 10 mg 10 mg PO .TAPER #1 tab.ds.pk 10/13/18 Unknown Rx (6-Day Pack, 21 Tabs)] prednisoLONE [Millipred Dp] 5 mg PO QDAY #100 tab.ds.pk 10/13/18 Unknown Rx Ibuprofen [Motrin] 600 mg PO Q8H PRN #20 tablet 12/02/18 Unknown Rx ED Physical Exam - General Limitations: No Limitations General appearance: alert, in no apparent distress - Head Head exam: Present: atraumatic, normocephalic - Neck Neck exam: Present: normal inspection, full ROM - Extremities Exam Extremities exam: Present: normal inspection, full ROM, tenderness, normal capillary refill. Absent: joint swelling - Expanded Lower Extremity Exam Right Hip exam: Present: normal inspection, full ROM. Absent: tenderness Upper Leg exam: Present: normal inspection, full ROM. Absent: tenderness Knee exam: Present: normal inspection, full ROM. Absent: tenderness Lower Leg exam: Present: normal inspection, full ROM. Absent: tenderness Ankle exam: Present: normal inspection, full ROM. Absent: tenderness, swelling, abrasion, laceration, ecchymosis, deformity, crepidus, dislocation, erythema, anterior draw sign Foot/Toe exam: Present: normal inspection, full ROM, tenderness, swelling. Absent: abrasion, laceration, ecchymosis, deformity, crepidus, dislocation, erythema, amputation, puncture wound, foreign body, calcaneal tenderness, tenderness at base of 5th metatarsal, nail avulsion, subungual hematoma Neuro vascular tendon exam: Present: no vascular compromise Gait: Positive: observed and limited by pain - Back Exam Back exam: Present: normal inspection, full ROM - Neurological Exam Neurological exam: Present: alert, oriented X3 - Psychiatric Psychiatric exam: Present: normal affect, normal mood - Skin Skin exam: Present: warm, dry, intact, normal color. Absent: rash ED Course Vital Signs 12/02/18 12/02/18 12:36 13:04 Temperature 98.6 F Pulse Rate 76 Respiratory 20 17 Rate Blood Pressure 145/62 O2 Sat by Pulse 97 Oximetry - Reevaluation(s) Reevaluation #1: 12/02/18 13:15 Patient is speaking in full sentences with no signs of distress noted. ED Lower Extremity MDM - Medical Decision Making This is a 53-year-old female that presents with right foot strain. Patient is stable and was examined by me. I referred patient to an orthopedic doctor for further evaluation for possible MRI. X-ray has been obtained and dictated by the radiologist. Patient is notified of the x-ray report with noted by the patient. Patient does have normal gait with no tenderness and no joint swelling. No ecchymosis. no joint redness or swelling. Not warm to touch. No signs of cellulites present. Patient received bree wrap for pain comfort. Patient was instructed to RICE therapy. Patient received Motrin for pain. Patient is discharged with Motrin. At time of discharge, the patient does not seem toxic or ill in appearance. No acute signs of distress noted. Patient agrees to discharge treatment plan of care. No further questions noted by the patient. Critical care attestation.: If time is entered above; I have spent that time in minutes in the direct care of this critically ill patient, excluding procedure time. ED Disposition Clinical Impression: Right foot strain Qualifiers: Encounter type: initial encounter Qualified Code(s): S96.911A - Strain of unspecified muscle and tendon at ankle and foot level, right foot, initial encounter Disposition: - TO HOME OR SELFCARE Is pt being admited?: No Does the pt Need Aspirin: No Condition: Stable Instructions: RICE Therapy (ED) Additional Instructions: Follow-up with a orthopedic doctor in 3-5 days or if symptoms worsen and continue return to emergency room as soon as possible. Prescriptions: Ibuprofen [Motrin] 600 mg PO Q8H PRN #20 tablet PRN Reason: Pain Referrals: PRIMARY CARE, [Referring] - 3-5 Days KHRIS GIL MD [Staff Physician] - 3-5 Days [facility] [Outside] - 3-5 Days [facility] [Outside] - 3-5 Days Forms: Work/School Release Form(ED)
--- NOTE | 2018-12-02 13:31 | XRay Report ---
RIGHT FOOT RADIOGRAPHS INDICATION: Right foot pain. COMPARISON: None similar. FINDINGS: AP, lateral and oblique right foot radiographs suggest mild hallux valgus. Intact remainder bony articulation. Large plantar and small to moderate dorsal calcaneal spurs. Possible osteopenia. Questionable dorsal foot soft tissue prominence or swelling extending to the ankle. CONCLUSION: No acute right foot radiographic abnormality with few degenerative changes and questionable soft tissue swelling, as described. Please correlate. Thank you for the opportunity to participate in this patient's care.
== END 2018-12-02 13:57 | disposition home or self-care (01) ==
LOC: ED 12:27
DX: S96.911A Strain of unspecified muscle and tendon at ankle and foot level, right foot, initial encounter (principal); I10 Essential (primary) hypertension; E11.9 Type 2 diabetes mellitus without complications; K21.9 Gastro-esophageal reflux disease without esophagitis; M19.90 Unspecified osteoarthritis, unspecified site; G43.909 Migraine, unspecified, not intractable, without status migrainosus; J45.909 Unspecified asthma, uncomplicated; M79.7 Fibromyalgia; Z90.89 Acquired absence of other organs; Z90.49 Acquired absence of other specified parts of digestive tract; Z98.51 Tubal ligation status; Z88.1 Allergy status to other antibiotic agents; Z88.8 Allergy status to other drugs, medicaments and biological substances; Z91.013 Allergy to seafood; W19.XXXA Unspecified fall, initial encounter; Y93.89 Activity, other specified; Y92.009 Unspecified place in unspecified non-institutional (private) residence as the place of occurrence of the external cause; Y99.8 Other external cause status

== ENCOUNTER 2019-01-05 03:18 | Emergency (ER) | payer MEDICAID ==
[2019-01-05 03:31] VITALS: BP 135/74
[2019-01-05] MEDS ORDERED: DECADRON IV ONE (03:34)
[2019-01-05] MEDS ORDERED: CLEOCIN 900 MG/50 mL 900 MG/50 ML BAG IV ONE (03:34)
[2019-01-05] MEDS ORDERED: MORPHINE IV ONE (03:34)
[2019-01-05] MEDS ORDERED: ZOFRAN IV ONE (03:34)
--- NOTE | 2019-01-05 03:39 | Emergency Department Report ---
ED ENT HPI - General Chief complaint: Dental/Oral Stated complaint: SWOLLEN JAW/DEN Time Seen by Provider: 01/05/19 03:33 Source: patient, EMS Mode of arrival: Stretcher Limitations: No Limitations - History of Present Illness Initial comments: Patient is 53 years old female with history of hypertension and diabetes. Patient reported to the emergency room via EMS for left jaw swelling and dental pain. Patient stated that she woke up this morning with swelling in her left jaw. Patient stated that she has an appointment to do is her dentist. Patient denied any difficulty swallowing or difficulty breathing. No fever or chills. No nausea or vomiting. MD complaint: tooth pain, other (left jaw swelling) -: Last night Location: tooth # Quality: sharp - Related Data Home Medications Medication Instructions Recorded Confirmed Last Taken Aspirin [Aspirin BABY CHEW TAB] 81 mg PO QPM 01/21/15 10/11/18 2 Days Ago ~11/18/17 Fluticasone [Flonase] 1 spray NS QDAY 01/21/15 10/11/18 04/22/15 raNITIdine HCl [Ranitidine 150mg 150 mg PO BID 01/21/15 10/11/18 2 Days Ago Cap] ~11/18/17 Citalopram [celeXA] 40 mg PO QHS 11/20/17 10/11/18 2 Days Ago ~11/18/17 metFORMIN [Glucophage] 500 mg PO BID 11/20/17 10/11/18 2 Days Ago ~11/18/17 Albuterol Sulfate [Proventil Hfa] 2 puff IH Q4HR PRN 10/11/18 10/11/18 Unknown Fluticasone/Salmeterol [Advair 1 each IH BID 10/11/18 10/11/18 Unknown 500-50 Diskus] HYDROcodone/APAP 10-325 [[place] 1 each PO Q6HR PRN 10/11/18 10/11/18 Unknown 10/325] Simvastatin [Zocor] 10 mg PO HS 10/11/18 10/11/18 Unknown Previous Rx's Medication Instructions Recorded Last Taken Type Amitriptyline [Elavil] 100 mg PO QHS tablet 07/11/18 Unknown Rx Bumetanide [Bumex 1 mg tab] 0.5 mg PO QDAY tablet 07/11/18 Unknown Rx Lisinopril [Zestril TAB] 10 mg PO QDAY tablet 07/11/18 Unknown Rx busPIRone [Buspar] 15 mg PO BID tablet 07/11/18 Unknown Rx ALBUTEROL Inhaler (OR & NICU) 2 puff IH QID PRN #1 inhalation 08/26/18 Unknown Rx [ProAir HFA Inhaler] Ipratropium/Albuterol Sulfate 1 ampul IH Q6HRT PRN #30 ampul.neb 08/26/18 Unknown Rx [DUONEB *Not for PRN Use*] Prednisone [predniSONE 10 mg 10 mg PO .TAPER #1 tab.ds.pk 10/13/18 Unknown Rx (6-Day Pack, 21 Tabs)] prednisoLONE [Millipred Dp] 5 mg PO QDAY #100 tab.ds.pk 10/13/18 Unknown Rx Ibuprofen [Motrin] 600 mg PO Q8H PRN #20 tablet 12/02/18 Unknown Rx Allergies Allergy/AdvReac Type Severity Reaction Status Date / Time pregabalin [From Lyrica] Allergy Unknown Verified 12/02/18 12:36 topiramate [From Topamax] Allergy Seizure Verified 02/03/18 15:04 shellfish Allergy Hives Uncoded 04/11/17 14:53 paragoric AdvReac Unknown Uncoded 04/11/17 14:53 ED Dental HPI - General Chief complaint: Dental/Oral Stated complaint: SWOLLEN JAW/DEN Time Seen by Provider: 01/05/19 03:33 Source: patient, EMS Mode of arrival: Stretcher Limitations: No Limitations - Related Data Home Medications Medication Instructions Recorded Confirmed Last Taken Aspirin [Aspirin BABY CHEW TAB] 81 mg PO QPM 01/21/15 10/11/18 2 Days Ago ~11/18/17 Fluticasone [Flonase] 1 spray NS QDAY 01/21/15 10/11/18 04/22/15 raNITIdine HCl [Ranitidine 150mg 150 mg PO BID 01/21/15 10/11/18 2 Days Ago Cap] ~11/18/17 Citalopram [celeXA] 40 mg PO QHS 11/20/17 10/11/18 2 Days Ago ~11/18/17 metFORMIN [Glucophage] 500 mg PO BID 11/20/17 10/11/18 2 Days Ago ~11/18/17 Albuterol Sulfate [Proventil Hfa] 2 puff IH Q4HR PRN 10/11/18 10/11/18 Unknown Fluticasone/Salmeterol [Advair 1 each IH BID 10/11/18 10/11/18 Unknown 500-50 Diskus] HYDROcodone/APAP 10-325 [[place] 1 each PO Q6HR PRN 10/11/18 10/11/18 Unknown 10/325] Simvastatin [Zocor] 10 mg PO HS 10/11/18 10/11/18 Unknown Previous Rx's Medication Instructions Recorded Last Taken Type Amitriptyline [Elavil] 100 mg PO QHS tablet 07/11/18 Unknown Rx Bumetanide [Bumex 1 mg tab] 0.5 mg PO QDAY tablet 07/11/18 Unknown Rx Lisinopril [Zestril TAB] 10 mg PO QDAY tablet 07/11/18 Unknown Rx busPIRone [Buspar] 15 mg PO BID tablet 07/11/18 Unknown Rx ALBUTEROL Inhaler (OR & NICU) 2 puff IH QID PRN #1 inhalation 08/26/18 Unknown Rx [ProAir HFA Inhaler] Ipratropium/Albuterol Sulfate 1 ampul IH Q6HRT PRN #30 ampul.neb 08/26/18 Unknown Rx [DUONEB *Not for PRN Use*] Prednisone [predniSONE 10 mg 10 mg PO .TAPER #1 tab.ds.pk 10/13/18 Unknown Rx (6-Day Pack, 21 Tabs)] prednisoLONE [Millipred Dp] 5 mg PO QDAY #100 tab.ds.pk 10/13/18 Unknown Rx Ibuprofen [Motrin] 600 mg PO Q8H PRN #20 tablet 12/02/18 Unknown Rx Allergies Allergy/AdvReac Type Severity Reaction Status Date / Time pregabalin [From Lyrica] Allergy Unknown Verified 12/02/18 12:36 topiramate [From Topamax] Allergy Seizure Verified 02/03/18 15:04 shellfish Allergy Hives Uncoded 04/11/17 14:53 paragoric AdvReac Unknown Uncoded 04/11/17 14:53 ED Review of Systems ROS: Stated complaint: SWOLLEN JAW/DEN Other details as noted in HPI Comment: All other systems reviewed and negative Constitutional: denies: chills, fever Respiratory: denies: cough, orthopnea, shortness of breath, SOB with exertion Cardiovascular: denies: chest pain, palpitations, dyspnea on exertion Gastrointestinal: denies: abdominal pain, nausea, vomiting, diarrhea, constipation, hematemesis Musculoskeletal: denies: back pain Neurological: denies: headache, weakness ED Past Medical Hx - Past Medical History Hx Hypertension: Yes Hx Congestive Heart Failure: No Hx Diabetes: Yes Hx GERD: Yes Hx Arthritis: Yes Hx Headaches / Migraines: Yes Hx Seizures: Yes Hx Asthma: Yes Hx COPD: No Hx HIV: No Additional medical history: scoliosis, Nerve problems, pinched nerves, neck problems, back problems., "TIA". FIBROMYALGIA - Surgical History Hx Cholecystectomy: Yes Hx Appendectomy: Yes Additional Surgical History: Tubal ligation. NECK SURGERY 2016 - Social History Smoking Status: Never Smoker Substance Use Type: None - Medications Home Medications: Home Medications Medication Instructions Recorded Confirmed Last Taken Type Aspirin [Aspirin BABY CHEW TAB] 81 mg PO QPM 01/21/15 10/11/18 2 Days Ago History ~11/18/17 Fluticasone [Flonase] 1 spray NS QDAY 01/21/15 10/11/18 04/22/15 History raNITIdine HCl [Ranitidine 150mg 150 mg PO BID 01/21/15 10/11/18 2 Days Ago History Cap] ~11/18/17 Citalopram [celeXA] 40 mg PO QHS 11/20/17 10/11/18 2 Days Ago History ~11/18/17 metFORMIN [Glucophage] 500 mg PO BID 11/20/17 10/11/18 2 Days Ago History ~11/18/17 Amitriptyline [Elavil] 100 mg PO QHS tablet 07/11/18 10/11/18 Unknown Rx Bumetanide [Bumex 1 mg tab] 0.5 mg PO QDAY tablet 07/11/18 10/11/18 Unknown Rx Lisinopril [Zestril TAB] 10 mg PO QDAY tablet 07/11/18 10/11/18 Unknown Rx busPIRone [Buspar] 15 mg PO BID tablet 07/11/18 10/11/18 Unknown Rx ALBUTEROL Inhaler (OR & NICU) 2 puff IH QID PRN #1 inhalation 08/26/18 10/11/18 Unknown Rx [ProAir HFA Inhaler] Ipratropium/Albuterol Sulfate 1 ampul IH Q6HRT PRN #30 ampul.neb 08/26/18 10/11/18 Unknown Rx [DUONEB *Not for PRN Use*] Albuterol Sulfate [Proventil Hfa] 2 puff IH Q4HR PRN 10/11/18 10/11/18 Unknown History Fluticasone/Salmeterol [Advair 1 each IH BID 10/11/18 10/11/18 Unknown History 500-50 Diskus] HYDROcodone/APAP 10-325 [[place] 1 each PO Q6HR PRN 10/11/18 10/11/18 Unknown History 10/325] Simvastatin [Zocor] 10 mg PO HS 10/11/18 10/11/18 Unknown History Prednisone [predniSONE 10 mg 10 mg PO .TAPER #1 tab.ds.pk 10/13/18 Unknown Rx (6-Day Pack, 21 Tabs)] prednisoLONE [Millipred Dp] 5 mg PO QDAY #100 tab.ds.pk 10/13/18 Unknown Rx Ibuprofen [Motrin] 600 mg PO Q8H PRN #20 tablet 12/02/18 Unknown Rx ED Physical Exam - General Limitations: No Limitations General appearance: alert, in no apparent distress - Head Head exam: Present: atraumatic, normocephalic, normal inspection - Eye Eye exam: Present: normal appearance - ENT ENT exam: Present: other (left jaw swelling, dental abscess) - Respiratory Respiratory exam: Present: normal lung sounds bilaterally. Absent: respiratory distress, wheezes, rales, rhonchi, stridor, chest wall tenderness, accessory muscle use, decreased breath sounds, prolonged expiratory - Cardiovascular Cardiovascular Exam: Present: regular rate, normal rhythm, normal heart sounds - GI/Abdominal GI/Abdominal exam: Present: soft, normal bowel sounds. Absent: distended, tenderness, guarding, rebound, rigid, organomegaly, mass, bruit, pulsatile mass, hernia - Extremities Exam Extremities exam: Present: normal inspection, full ROM, normal capillary refill - Back Exam Back exam: Present: normal inspection, full ROM. Absent: tenderness, CVA tenderness (R), CVA tenderness (L) - Neurological Exam Neurological exam: Present: alert, oriented X3, CN II-XII intact, normal gait, reflexes normal - Skin Skin exam: Present: warm, intact, normal color ED Course Vital Signs 01/05/19 03:29 Temperature 98.0 F Pulse Rate 89 Respiratory 18 Rate Blood Pressure 135/74 [Left] O2 Sat by Pulse 96 Oximetry Critical care attestation.: If time is entered above; I have spent that time in minutes in the direct care of this critically ill patient, excluding procedure time. ED Disposition Clinical Impression: Dental abscess Disposition: TO HOME OR SELFCARE Is pt being admited?: No Condition: Stable Instructions: Dental Abscess (ED) Additional Instructions: Please follow up with her dentist in the next 2-3 days. Referrals: [facility] [Provider Group] - 3-5 Days
[2019-01-05 08:01] LABS: BUN/Creatinine Ratio 21; Blood Urea Nitrogen 17 mg/dL (7-17); Calcium 8.8 mg/dL (8.4-10.2); Hemolysis Index 8
[2019-01-05 09:27] LABS: Basophils # (Auto) 0.1 K/mm3 (0.0-0.1); Basophils % (Auto) 0.8 % (0.0-1.8); Eosinophils # (Auto) 0.1 K/mm3 (0.0-0.4); Eosinophils % (Auto) 0.6 % (0.0-4.3); Hemoglobin 13.9 gm/dl (10.1-14.3); Lymphocytes # (Auto) 3.7 K/mm3 (1.2-5.4); Lymphocytes % (Auto) 32.6 % (13.4-35.0); Mean Corpuscular HGB Conc 34 % (30-34); Mean Corpuscular Volume 91 fl (79-97); Monocytes % (Auto) 8.9 % (0.0-7.3); Platelet Count 317 K/mm3 (140-440); Red Cell Distribution Width 12.9 % (13.2-15.2)
== END 2019-01-05 06:20 | disposition home or self-care (01) ==
LOC: ED 03:18
DX: K04.7 Periapical abscess without sinus (principal); I10 Essential (primary) hypertension; K21.9 Gastro-esophageal reflux disease without esophagitis; E11.9 Type 2 diabetes mellitus without complications; M19.90 Unspecified osteoarthritis, unspecified site; G43.909 Migraine, unspecified, not intractable, without status migrainosus; J45.909 Unspecified asthma, uncomplicated; M79.7 Fibromyalgia; Z86.73 Personal history of transient ischemic attack (TIA), and cerebral infarction without residual deficits; Z90.49 Acquired absence of other specified parts of digestive tract; Z91.013 Allergy to seafood; Z88.8 Allergy status to other drugs, medicaments and biological substances; Z79.82 Long term (current) use of aspirin; Z98.51 Tubal ligation status
CPT/HCPCS: 36415; 80048; 85025; 96365; 96375; 99283; J1100; J2270; J2405

== ENCOUNTER 2019-04-24 20:53 | Inpatient (IN) | payer MEDICAID ==
[2019-04-24] MEDS ORDERED: DUONEB *Not for PRN Use IH ONE (20:59)
--- NOTE | 2019-04-24 21:02 | Emergency Department Report ---
ED Shortness of Breath HPI - General Stated Complaint: DEN Time Seen by Provider: 04/24/19 20:53 Source: patient, EMS Mode of arrival: Stretcher Limitations: No Limitations - History of Present Illness Initial Comments: Patient is a 53-year-old female that presents emergency room with complaints of asthma exacerbation and shortness of breath and wheezing. Patient states she wa s seen in another ER and given multiple medications and discharged home with Medrol. Patient states her symptoms return and are worse than yesterday. Patient states her symptoms came back approximately 4 hours ago. Patient states she's taken multiple nebulized with no lesions. Patient was brought in by EMS. Patient given Medrol, magnesium 2 g, and albuterol in route. Patient states symptoms are slightly better but patient is still having wheezing and retractions. MD Complaint: shortness of breath, cough, "asthma attack" -: Sudden Severity: severe Consistency: constant Improves With: oxygen, rest, bronchodilators Worsens With: exertion Known History Of: asthma Context: recent URI Associated Symptoms: cough, diaphoresis Treatments Prior to Arrival: oxygen, bronchodilator, other - Related Data Home Oxygen Therapy: No Home Medications Medication Instructions Recorded Confirmed Last Taken Aspirin [Aspirin BABY CHEW TAB] 81 mg PO QPM 01/21/15 10/11/18 2 Days Ago ~11/18/17 Fluticasone [Flonase] 1 spray NS QDAY 01/21/15 10/11/18 04/22/15 raNITIdine HCl [Ranitidine 150mg 150 mg PO BID 01/21/15 10/11/18 2 Days Ago Cap] ~11/18/17 Citalopram [celeXA] 40 mg PO QHS 11/20/17 10/11/18 2 Days Ago ~11/18/17 metFORMIN [Glucophage] 500 mg PO BID 11/20/17 10/11/18 2 Days Ago ~11/18/17 Albuterol Sulfate [Proventil Hfa] 2 puff IH Q4HR PRN 10/11/18 10/11/18 Unknown Fluticasone/Salmeterol [Advair 1 each IH BID 10/11/18 10/11/18 Unknown 500-50 Diskus] HYDROcodone/APAP 10-325 [[place] 1 each PO Q6HR PRN 10/11/18 10/11/18 Unknown 10/325] Simvastatin [Zocor] 10 mg PO HS 10/11/18 10/11/18 Unknown Previous Rx's Medication Instructions Recorded Last Taken Type Amitriptyline [Elavil] 100 mg PO QHS tablet 07/11/18 Unknown Rx Bumetanide [Bumex 1 mg tab] 0.5 mg PO QDAY tablet 07/11/18 Unknown Rx Lisinopril [Zestril TAB] 10 mg PO QDAY tablet 07/11/18 Unknown Rx busPIRone [Buspar] 15 mg PO BID tablet 07/11/18 Unknown Rx ALBUTEROL Inhaler (OR & NICU) 2 puff IH QID PRN #1 inhalation 08/26/18 Unknown Rx [ProAir HFA Inhaler] Ipratropium/Albuterol Sulfate 1 ampul IH Q6HRT PRN #30 ampul.neb 08/26/18 U nknown Rx [DUONEB *Not for PRN Use*] Prednisone [predniSONE 10 mg 10 mg PO .TAPER #1 tab.ds.pk 10/13/18 Unknown Rx (6-Day Pack, 21 Tabs)] prednisoLONE [Millipred 5mg (6 day 5 mg PO QDAY #100 tab.ds.pk 10/13/18 Unknown Rx 21 tab dosepak)] Ibuprofen [Motrin] 600 mg PO Q8H PRN #20 tablet 12/02/18 Unknown Rx Clindamycin [Clindamycin CAP] 300 mg PO Q8H #21 cap 01/05/19 Unknown Rx Ondansetron [Zofran Odt] 4 mg PO Q8HR PRN #14 tab.rapdis 01/05/19 Unknown Rx Prednisone [predniSONE 10 mg 10 mg PO .TAPER #1 tab.ds.pk 01/05/19 Unknown Rx (6-Day Pack, 21 Tabs)] traMADol [Ultram] 50 mg PO Q6HR PRN #14 tablet 01/05/19 Unknown Rx Allergies Allergy/AdvReac Type Severity Reaction Status Date / Time pregabalin [From Lyrica] Allergy Unknown Verified 12/02/18 12:36 topiramate [From Topamax] Allergy Seizure Verified 02/03/18 15:04 shellfish Allergy Hives Uncoded 04/11/17 14:53 paragoric AdvReac Unknown Uncoded 04/11/17 14:53 ED Review of Systems ROS: Stated complaint: DEN Other details as noted in HPI Constitutional: denies: chills, fever Eyes: denies: eye pain, eye discharge, vision change ENT: denies: ear pain, throat pain Respiratory: cough, shortness of breath, SOB with exertion, SOB at rest, wheezing Cardiovascular: denies: chest pain, palpitations Endocrine: no symptoms reported Gastrointestinal: denies: abdominal pain, nausea, diarrhea Genitourinary: denies: urgency, dysuria, discharge Musculoskeletal: denies: back pain, joint swelling, arthralgia Skin: denies: rash, lesions Neurological: denies: headache, weakness, paresthesias Psychiatric: denies: anxiety, depression Hematological/Lymphatic: denies: easy bleeding, easy bruising ED Past Medical Hx - Past Medical History Previous Medical History?: Yes Hx Hypertension: Yes Hx Congestive Heart Failure: No Hx Diabetes: Yes Hx GERD: Yes Hx Arthritis: Yes Hx Headaches / Migraines: Yes Hx Seizures: Yes Hx Asthma: Yes Hx COPD: No Hx HIV: No Additional medical history: scoliosis, Nerve problems, pinched nerves, neck problems, back problems., "TIA". FIBROMYALGIA - Surgical History Past Surgical History?: Yes Hx Cholecystectomy: Yes Hx Appendectomy: Yes Additional Surgical History: Tubal ligation. NECK SURGERY 2015 - Family History Family history: no significant - Social History Smoking Status: Never Smoker Substance Use Type: None - Medications Home Medications: Home Medications Medication Instructions Recorded Confirmed Last Taken Type Aspirin [Aspirin BABY CHEW TAB] 81 mg PO QPM 01/21/15 10/11/18 2 Days Ago History ~11/18/17 Fluticasone [Flonase] 1 spray NS QDAY 01/21/15 10/11/18 04/22/15 History raNITIdine HCl [Ranitidine 150mg 150 mg PO BID 01/21/15 10/11/18 2 Days Ago History Cap] ~11/18/17 Citalopram [celeXA] 40 mg PO QHS 11/20/17 10/11/18 2 Days Ago History ~11/18/17 metFORMIN [Glucophage] 500 mg PO BID 11/20/17 10/11/18 2 Days Ago History ~11/18/17 Amitriptyline [Elavil] 100 mg PO QHS tablet 07/11/18 10/11/18 Unknown Rx Bumetanide [Bumex 1 mg tab] 0.5 mg PO QDAY tablet 07/11/18 10/11/18 Unknown Rx Lisinopril [Zestril TAB] 10 mg PO QDAY tablet 07/11/18 10/11/18 Unknown Rx busPIRone [Buspar] 15 mg PO BID tablet 07/11/18 10/11/18 Unknown Rx ALBUTEROL Inhaler (OR & NICU) 2 puff IH QID PRN #1 inhalation 08/26/18 10/11/18 Unknown Rx [ProAir HFA Inhaler] Ipratropium/Albuterol Sulfate 1 ampul IH Q6HRT PRN #30 ampul.neb 08/26/18 10/11/18 Unknown Rx [DUONEB *Not for PRN Use*] Albuterol Sulfate [Proventil Hfa] 2 puff IH Q4HR PRN 10/11/18 10/11/18 Unknown History Fluticasone/Salmeterol [Advair 1 each IH BID 10/11/18 10/11/18 Unknown History 500-50 Diskus] HYDROcodone/APAP 10-325 [[place] 1 each PO Q6HR PRN 10/11/18 10/11/18 Unknown History 10/325] Simvastatin [Zocor] 10 mg PO HS 10/11/18 10/11/18 Unknown History Prednisone [predniSONE 10 mg 10 mg PO .TAPER #1 tab.ds.pk 10/13/18 Unknown Rx (6-Day Pack, 21 Tabs)] prednisoLONE [Millipred 5mg (6 day 5 mg PO QDAY #100 tab.ds.pk 10/13/18 Unknown Rx 21 tab dosepak)] Ibuprofen [Motrin] 600 mg PO Q8H PRN #20 tablet 12/02/18 Unknown Rx Clindamycin [Clindamycin CAP] 300 mg PO Q8H #21 cap 01/05/19 Unknown Rx Ondansetron [Zofran Odt] 4 mg PO Q8HR PRN #14 tab.rapdis 01/05/19 Unknown Rx Prednisone [predniSONE 10 mg 10 mg PO .TAPER #1 tab.ds.pk 01/05/19 Unknown Rx (6-Day Pack, 21 Tabs)] traMADol [Ultram] 50 mg PO Q6HR PRN #14 tablet 01/05/19 Unknown Rx ED Physical Exam - General Limitations: No Limitations General appearance: alert, in distress - Head Head exam: Present: atraumatic, normocephalic - Eye Eye exam: Present: normal appearance, PERRL Pupils: Present: normal accommodation - ENT ENT exam: Present: mucous membranes moist - Neck Neck exam: Present: normal inspection - Respiratory Respiratory exam: Present: respiratory distress, wheezes, rhonchi, accessory mus nilson use, decreased breath sounds - Cardiovascular Cardiovascular Exam: Present: regular rate, normal rhythm. Absent: systolic murmur, diastolic murmur, rubs, gallop - GI/Abdominal GI/Abdominal exam: Present: soft, normal bowel sounds - Extremities Exam Extremities exam: Present: normal inspection - Back Exam Back exam: Present: normal inspection - Neurological Exam Neurological exam: Present: alert, oriented X3 - Psychiatric Psychiatric exam: Present: normal affect, normal mood - Skin Skin exam: Present: warm, dry, intact, normal color. Absent: rash ED Course Vital Signs 04/24/19 04/24/19 04/24/19 21:10 21:14 21:30 Temperature 100.3 F H 100.3 F H Pulse Rate 103 H 104 H Pulse Rate [ 84 Posterior] Respiratory 37 H 37 H Rate Respiratory 22 Rate [Posterior ] Blood Pressure 146/70 Blood Pressure 146/70 [Left] O2 Sat by Pulse 94 94 Oximetry 04/24/19 04/24/19 21:50 22:23 Temperature Pulse Rate 89 Pulse Rate [ 98 H Posterior] Respiratory 18 Rate Respiratory 25 H Rate [Posterior ] Blood Pressure Blood Pressure [Left] O2 Sat by Pulse 95 Oximetry - Reevaluation(s) Reevaluation #1: Patient is to having retractions and wheezes. Patient will placed on BiPAP and given a DuoNeb. 04/24/19 21:02 Reevaluation #2: Patient's lung sounds have improved. Patient states little bit better. Patient is still hypoxic. Patient will be placed on BiPAP. Patient will also be given antibiotics. 04/24/19 22:06 Reevaluation #3: Patient has improved. Patient on BiPAP. Patient sat is better. Discussed all results with patient. Patient will be admitted to the hospitalist service. Patient agrees to plan of care. 04/24/19 23:22 - Consultations Consultation #1: Hospitalist consulted for admission. Hospitalist to admit patient. Hospitalist to assume care patient. 04/24/19 23:2O ED Medical Decision Making - Lab Data Result diagrams: 04/24/19 21:10 04/24/19 21:10 - EKG Data -: EKG Interpreted by Me EKG shows normal: sinus rhythm, axis, intervals, QRS complexes, ST-T waves Rate: normal - Radiology Data Radiology results: report reviewed PROCEDURE: XR CHEST 1V AP TECHNIQUE: Chest radiograph single view. HISTORY: Dyspnea COMPARISONS: None . FINDINGS: Heart: Normal. Mediastinum/Vessels: Normal. Lungs/Pleural space: Lungs are hyperinflated. There are no confluent infiltrates or mass lesions. Diffuse prominence of interstitial markings is noted. Pleural spaces are clear. Mild degree pulm onary venous congestion is noted.. Bony thorax: No acute osseous abnormality. Life support devices: None. IMPRESSION: COPD Mild degree pulmonary venous congestion Prominent interstitial markings may represent interstitial edema versus interstitial fibrosis. - Medical Decision Making Patient is a 53-year-old female that presents emergency room with complaints of shortness of breath and difficulty breathing. Patient found to be hypoxic and is status asthmaticus. Prior to arrival EMS gave the patient magnesium, Medrol and albuterol. Upon arrival patient still had wheezing and difficulty breathing and respiratory distress. Patient on the hypoxic. Patient given cefepime, DuoNeb and placed on BiPAP. Patient improved. Patient was admitted to the hospitalist service for further evaluation treatment. - Differential Diagnosis pneumonia. Status asthmaticus. Shortness of breath. Respiratory distress Critical Care Time: Yes Critical care attestation.: If time is entered above; I have spent that time in minutes in the direct care of this critically ill patient, excluding procedure time. Critical Care Time: 45 minutes ED Disposition Clinical Impression: Acute respiratory failure with hypoxia, SOB (shortness of breath), Hypoxia Acute respiratory failure Qualifiers: Respiratory failure complication: hypoxia Qualified Code(s): J96.01 - Acute respiratory failure with hypoxia Asthma exacerbation Qualifiers: Asthma severity: severe Asthma persistence: persistent Qualified Code(s): J45.51 - Severe persistent asthma with (acute) exacerbation Status asthmaticus Qualifiers: Asthma severity: moderate Asthma persistence: persistent Qualified Code(s): J45.42 - Moderate persistent asthma with status asthmaticus Pneumonia Qualifiers: Pneumonia type: due to unspecified organism Laterality: unspecified laterality Lung location: unspecified part of lung Qualified Code(s): J18.9 - Pneumonia, unspecified organism Fever Qualifiers: Fever type: unspecified Qualified Code(s): R50.9 - Fever, unspecified Disposition: DC-[id number] OP ADMIT IP TO THIS HOSP Is pt being admited?: Yes Does the pt Need Aspirin: No Condition: Critical Time of Disposition: 23:22
[2019-04-24 21:22] LABS: Basophils # (Auto) 0.1 K/mm3 (0.0-0.1); Basophils % (Auto) 0.6 % (0.0-1.8); Eosinophils % (Auto) 0.1 % (0.0-4.3); Hematocrit 41.4 % (30.3-42.9); Hemoglobin 14.3 gm/dl (10.1-14.3); Lymphocytes # (Auto) 1.7 K/mm3 (1.2-5.4); Lymphocytes % (Auto) 17.6 % (13.4-35.0); Mean Corpuscular HGB Conc 35 % (30-34); Mean Corpuscular Volume 91 fl (79-97); Monocytes # (Auto) 1.1 K/mm3 (0.0-0.8); Monocytes % (Auto) 11.7 % (0.0-7.3); Platelet Count 262 K/mm3 (140-440); Red Blood Count 4.57 M/mm3 (3.65-5.03); Red Cell Distribution Width 13.8 % (13.2-15.2)
[2019-04-24 21:47] LABS: Creatine Kinase MB 2.1 ng/mL (0.0-4.0)
[2019-04-24 21:48] LABS: Alanine Aminotransferase 20 units/L (7-56); BUN/Creatinine Ratio 28; Blood Urea Nitrogen 22 mg/dL (7-17); Calcium 8.4 mg/dL (8.4-10.2); Hemolysis Index 11
--- NOTE | 2019-04-24 21:48 | XRay Report ---
PROCEDURE: XR CHEST 1V AP TECHNIQUE: Chest radiograph single view. HISTORY: Dyspnea COMPARISONS: None . FINDINGS: Heart: Normal. Mediastinum/Vessels: Normal. Lungs/Pleural space: Lungs are hyperinflated. There are no confluent infiltrates or mass lesions. Di ffuse prominence of interstitial markings is noted. Pleural spaces are clear. Mild degree pulmonary v enous congestion is noted.. Bony thorax: No acute osseous abnormality. Life support devices: None. IMPRESSION: COPD Mild degree pulmonary venous congestion Prominent interstitial markings may represent interstitial edema versus interstitial fibrosis. This document is electronically signed by Sanchez Coronado MD., April 24 2019 09:46:11 PM ET
[2019-04-24] MEDS ORDERED: MAXIPIME/NS 2 GM/100 ML 2 GM/100 ML BAG IV ONE (22:07)
[2019-04-24] MEDS ORDERED: ZOFRAN IV PRN (23:36)
[2019-04-24] MEDS ORDERED: SODIUM CHLORIDE FLUSH SYRINGE 10 ML IV PRN (23:36)
--- NOTE | 2019-04-24 23:43 | History and Physical Report ---
History of Present Illness Date of examination: 04/24/19 History of present illness: 53-year-old woman history of Hypertension, TIA, diabetes, DJD with chronic right side numbness, seizure, asthma, Fibromyalgia comes emergency room with complaints of shortness of breath started today not really what her nebulized treatments. She was seen at [place] yesterday for same symptoms and dischrge from the ER. Also complaining of non productive cough, + fever, chills Review of systems Constitutional: no weight loss, chills, fever Ears, eyes, nose, mouth and throat: no nasal congestion, no nasal discharge, no sinus pressure, no vision change, no red eye. Neck: No neck pain or rigidity. Cardiovascular: no chest pain, palpitations Respiratory: +cough, shortness of breath Gastrointestinal: no abdominal pain hematochezia Genitourinary : no frequency , no hematuria Musculoskeletal: no joint swelling or muscle ache Integumentary: no rash, no pruritis Neurological: no parathesias, no numbness, no focal weakness Endocrine: no cold or heat intolerance, no polyuria or polydipsia Hematologic/Lymphatic: no easy bruising, no easy bleeding, no gland swelling Allergic/Immunologic: no urticaria, no angioedema. PAST MEDICAL HISTORY:Hypertension, TIA, diabetes, DJD with chronic right side numbness, seizure, asthma, Fibromyalgia PAST SURGICAL HISTORY: Appendectomy, cholecystectomy, tubal ligation, neck surgery SOCIAL HISTORY: Denies alcohol, tobacco, drugs FAMILY HISTORY: Hypertension, coronary artery disease Medications and Allergies Allergies Allergy/AdvReac Type Severity Reaction Status Date / Time pregabalin [From Lyrica] Allergy Unknown Verified 12/02/18 12:36 topiramate [From Topamax] Allergy Seizure Verified 02/03/18 15:04 shellfish Allergy Hives Uncoded 04/11/17 14:53 paragoric AdvReac Unknown Uncoded 04/11/17 14:53 Home Medications Medication Instructions Recorded Confirmed Last Taken Type Aspirin [Aspirin BABY CHEW TAB] 81 mg PO QPM 01/21/15 10/11/18 2 Days Ago History ~11/18/17 Fluticasone [Flonase] 1 spray NS QDAY 01/21/15 10/11/18 04/22/15 History raNITIdine HCl [Ranitidine 150mg 150 mg PO BID 01/21/15 10/11/18 2 Days Ago History Cap] ~11/18/17 Citalopram [celeXA] 40 mg PO QHS 11/20/17 10/11/18 2 Days Ago History ~11/18/17 metFORMIN [Glucophage] 500 mg PO BID 11/20/17 10/11/18 2 Days Ago History ~11/18/17 Amitriptyline [Elavil] 100 mg PO QHS tablet 07/11/18 10/11/18 Unknown Rx Bumetanide [Bumex 1 mg tab] 0.5 mg PO QDAY tablet 07/11/18 10/11/18 Unknown Rx Lisinopril [Zestril TAB] 10 mg PO QDAY tablet 07/11/18 10/11/18 Unknown Rx busPIRone [Buspar] 15 mg PO BID tablet 07/11/18 10/11/18 Unknown Rx ALBUTEROL Inhaler (OR & NICU) 2 puff IH QID PRN #1 inhalation 08/26/18 10/11/18 Unknown Rx [ProAir HFA Inhaler] Ipratropium/Albuterol Sulfate 1 ampul IH Q6HRT PRN #30 ampul.neb 08/26/18 10/11/18 Unknown Rx [DUONEB *Not for PRN Use*] Albuterol Sulfate [Proventil Hfa] 2 puff IH Q4HR PRN 10/11/18 10/11/18 Unknown History Fluticasone/Salmeterol [Advair 1 each IH BID 10/11/18 10/11/18 Unknown History 500-50 Diskus] HYDROcodone/APAP 10-325 [[place] 1 each PO Q6HR PRN 10/11/18 10/11/18 Unknown History 10/325] Simvastatin [Zocor] 10 mg PO HS 10/11/18 10/11/18 Unknown History Prednisone [predniSONE 10 mg 10 mg PO .TAPER #1 tab.ds.pk 10/13/18 Unknown Rx (6-Day Pack, 21 Tabs)] prednisoLONE [Millipred 5mg (6 day 5 mg PO QDAY #100 tab.ds.pk 10/13/18 Unknown Rx 21 tab dosepak)] Ibuprofen [Motrin] 600 mg PO Q8H PRN #20 tablet 12/02/18 Unknown Rx Clindamycin [Clindamycin CAP] 300 mg PO Q8H #21 cap 01/05/19 Unknown Rx Ondansetron [Zofran Odt] 4 mg PO Q8HR PRN #14 tab.rapdis 01/05/19 Unknown Rx Prednisone [predniSONE 10 mg 10 mg PO .TAPER #1 tab.ds.pk 01/05/19 Unknown Rx (6-Day Pack, 21 Tabs)] traMADol [Ultram] 50 mg PO Q6HR PRN #14 tablet 01/05/19 Unknown Rx Active Meds: Active Medications Acetaminophen (Tylenol) 650 mg PO Q4H PRN PRN Reason: Pain MILD(1-3)/Fever >100.5/JARA Albuterol/Ipratropium (Duoneb *Not For Prn Use*) 1 ampul IH Q6HRT [facility] Enoxaparin Sodium (Lovenox) 30 mg SUB-Q QDAY [facility] Levofloxacin/Dextrose (Levaquin 500mg/100ml) 500 mg in 100 mls @ 100 mls/hr IV Q24HR CORNELIUS; Protocol Methylprednisolone Sodium Succinate (Solu-Medrol) 125 mg IV Q6HR [facility] Ondansetron HCl (Zofran) 4 mg IV Q8H PRN PRN Reason: Nausea And Vomiting Sodium Chloride (Sodium Chloride Flush Syringe 10 Ml) 10 ml IV BID CORNELIUS Sodium Chloride (Sodium Chloride Flush Syringe 10 Ml) 10 ml IV PRN PRN PRN Reason: LINE FLUSH Exam - Physical Exam Narrative exam: Gen. appearance: Patient lying in bed, no apparent distress, on BIPAP HEENT: Normocephalic, atraumatic, pupils equally round and reactive to light, extraocular movement intact, and no sclericterus,. No JVD or thyromegaly or nodule,neck supple, no carotid bruit ,mucous membranes moist, no exudate or erythema Heart: S1, S2, regular rate and rhythm Lungs: Wheezing, decreased air entry, breathing comfortable Abdomen: Positive bowel sounds, non-tender, nondistended, no organomegaly Extremity:no edema cyanosis, clubbing Skin: no rash, dry, warm Neuro: Oriented 3, cranial nerves II-12 intact, speech is fluent, motor and sensory intact - Constitutional Vitals: Temp Pulse Resp BP Pulse Ox 100.3 F H 89 18 146/70 95 04/24/19 21:14 04/24/19 22:23 04/24/19 22:23 04/24/19 21:14 04/24/19 22:23 Results - Labs CBC & Chem 7: 04/24/19 21:10 04/24/19 21:10 Labs: Abnormal lab results 04/24/19 04/24/19 Range/Units 21:10 21:10 MCHC 35 H (30-34) % [place] % (Auto) 11.7 H (0.0-7.3) % [place] # 1.1 H (0.0-0.8) K/mm3 BUN 22 H (7-17) mg/dL Glucose 121 H (65-100) mg/dL Assessment and Plan Assessment Acute Respiratory Failure Asthma exacerbation with Bronchitis Hypertension Diabetes Seizure Chronic pain Depression Fibromyalgia Plan Admit to medicine Start high-dose steroids, nebulizer treatment, IV levaquin, continue BIPAP Check fingersticks initiate insulin sliding scale Continue provide outpatient medications DVT prophylaxis
[2019-04-24] MEDS ORDERED: D50W (25GM) Syringe IV PRN (23:46)
[2019-04-25] MEDS: TYLENOL PO PRN ×2 (00:29→17:38)
[2019-04-25] MEDS: SOLU-Medrol IV SCH ×4 (02:04→21:45)
[2019-04-25] MEDS: DUONEB *Not for PRN Use IH SCH ×4 (03:06→20:23)
[2019-04-25 08:19] LABS: Basophils % (Auto) 0.1 % (0.0-1.8); Hemoglobin 13.9 gm/dl (10.1-14.3); Lymphocytes # (Auto) 0.6 K/mm3 (1.2-5.4); Lymphocytes % (Auto) 9.6 % (13.4-35.0); Mean Corpuscular HGB Conc 34 % (30-34); Mean Corpuscular Volume 91 fl (79-97); Monocytes # (Auto) 0.2 K/mm3 (0.0-0.8); Monocytes % (Auto) 2.4 % (0.0-7.3); Platelet Count 263 K/mm3 (140-440); Red Blood Count 4.52 M/mm3 (3.65-5.03); Red Cell Distribution Width 13.7 % (13.2-15.2)
[2019-04-25 08:36] LABS: BUN/Creatinine Ratio 40; Blood Urea Nitrogen 24 mg/dL (7-17); Calcium 8.4 mg/dL (8.4-10.2); Hemolysis Index 6
[2019-04-25] MEDS: HumaLOG SUB-Q SCH ×4 (08:46→22:45)
[2019-04-25] MEDS ORDERED: PROAIR IH PRN (09:30)
--- NOTE | 2019-04-25 09:30 | Progress Note ---
Assessment and Plan Assessment and plan: Acute Respiratory Failure Asthma exacerbation with Bronchitis Hypertension Diabetes Seizure Chronic pain Depression Fibromyalgia Start high-dose steroids, nebulizer treatment, IV levaquin, continue BIPAP Check fingersticks initiate insulin sliding scale Continue provide outpatient medications DVT prophylaxis History Interval history: Patient seen and examined medical records reviewed Admitted with acute on chronic hypoxic respiratory failure secondary to Bronchial asthma exacerbation Patient feels slightly better still has some cough and congestion Vital signs noted Hospitalist Physical - Constitutional Vitals: Temp Pulse Resp BP Pulse Ox 98.2 F 30 L 77 H 109/72 93 04/25/19 08:34 04/25/19 08:52 04/25/19 08:52 04/25/19 08:34 04/25/19 09:28 General appearance: Present: mild distress, well-nourished, obese - EENT Eyes: Present: PERRL, EOM intact - Neck Neck: Present: supple, normal ROM - Respiratory Respiratory effort: normal Respiratory: bilateral: diminished, wheezing, negative: rales, rhonchi - Cardiovascular Rhythm: regular Heart Sounds: Present: S1 & S2 - Extremities Extremities: no ischemia, No edema - Abdominal General gastrointestinal: soft, non-tender, non-distended, normal bowel sounds - Integumentary Integumentary: Present: clear, warm - Psychiatric Psychiatric: appropriate mood/affect, cooperative - Neurologic Neurologic: CNII-XII intact, moves all extremities Results - Labs CBC & Chem 7: 04/25/19 07:30 04/25/19 07:30 Labs: Laboratory Last Values WBC 6.7 K/mm3 (4.5-11.0) 04/25/19 07:30 RBC 4.52 M/mm3 (3.65-5.03) 04/25/19 07:30 Hgb 13.9 gm/dl (10.1-14.3) 04/25/19 07:30 Hct 41.0 % (30.3-42.9) 04/25/19 07:30 MCV 91 fl (79-97) 04/25/19 07:30 MCH 31 pg (28-32) 04/25/19 07:30 MCHC 34 % (30-34) 04/25/19 07:30 RDW 13.7 % (13.2-15.2) 04/25/19 07:30 Plt Count 263 K/mm3 (140-440) 04/25/19 07:30 Lymph % (Auto) 9.6 % (13.4-35.0) L 04/25/19 07:30 [place]on % (Auto) 2.4 % (0.0-7.3) 04/25/19 07:30 Eos % (Auto) 0.0 % (0.0-4.3) 04/25/19 07:30 Baso % (Auto) 0.1 % (0.0-1.8) 04/25/19 07:30 Lymph # 0.6 K/mm3 (1.2-5.4) L 04/25/19 07:30 Harmon # 0.2 K/mm3 (0.0-0.8) 04/25/19 07:30 Eos # 0.0 K/mm3 (0.0-0.4) 04/25/19 07:30 Baso # 0.0 K/mm3 (0.0-0.1) 04/25/19 07:30 Seg Neutrophils % 87.9 % (40.0-70.0) H 04/25/19 07:30 Seg Neutrophils # 5.9 K/mm3 (1.8-7.7) 04/25/19 07:30 Sodium 140 mmol/L (137-145) 04/25/19 07:30 Potassium 4.1 mmol/L (3.6-5.0) 04/25/19 07:30 Chloride 101.6 mmol/L (98-107) 04/25/19 07:30 Carbon Dioxide 22 mmol/L (22-30) 04/25/19 07:30 21 mmol/L 04/25/19 07:30 BUN 24 mg/dL (7-17) H 04/25/19 07:30 0.6 mg/dL (0.7-1.2) L 04/25/19 07:30 Estimated GFR > 60 ml/min 04/25/19 07:30 40 % 04/25/19 07:30 Glucose 172 mg/dL (65-100) H 04/25/19 07:30 POC Glucose 168 (70-105) H 04/25/19 07:44 Lactic Acid 0.90 mmol/L (0.7-2.0) 04/24/19 21:10 Calcium 8.4 mg/dL (8.4-10.2) 04/25/19 07:30 0.50 mg/dL (0.1-1.2) 04/24/19 21:10 AST 23 units/L (5-40) 04/24/19 21:10 ALT 20 units/L (7-56) 04/24/19 21:10 110 units/L (35-129) 04/24/19 21:10 127 units/L (30-135) 04/24/19 21:10 CK-MB (CK-2) 2.1 ng/mL (0.0-4.0) 04/24/19 21:10 CK-MB (CK-2) Rel Index 1.6 (0-4) 04/24/19 21:10 < 0.010 ng/mL (0.00-0.029) 04/24/19 21:10 8.0 g/dL (6.3-8.2) 04/24/19 21:10 4.0 g/dL (3.9-5) 04/24/19 21:10 1.0 % 04/24/19 21:10 Active Medications - Current Medications Current Medications: Generic Name Dose Route Start Last Admin Trade Name Freq PRN Reason Stop Dose Admin Acetaminophen 650 mg 04/24/19 23:36 04/25/19 00:29 Tylenol PO 650 mg Q4H PRN Administration Pain MILD(1-3)/Fever >100.5/JARA Albuterol/Ipratropium 1 ampul 04/25/19 02:00 04/25/19 08:33 Duoneb *Not For Prn Use* IH 1 ampul Q6HRT CORNELIUS Administration Dextrose 50 ml 04/24/19 23:46 D50w (25gm) Syringe IV PRN PRN Hypoglycemia Enoxaparin Sodium 40 mg 04/25/19 10:00 Lovenox SUB-Q QDAY@1000 CORNELIUS Levofloxacin/Dextrose 500 mg in 100 mls @ 100 mls/hr 04/25/19 10:00 Levaquin 500mg/100ml IV Q24HR [facility] Protocol Insulin Human Lispro 0 unit 04/25/19 07:30 04/25/19 08:46 Humalog SUB-Q 3 unit ACHS [facility] Administration Protocol Methylprednisolone Sodium Succinate 125 mg 04/25/19 02:00 04/25/19 02:04 Solu-Medrol IV 125 mg Q6H CORNELIUS Administration Ondansetron HCl 4 mg 04/24/19 23:36 Zofran IV Q8H PRN Nausea And Vomiting Sodium Chloride 10 ml 04/25/19 10:00 Sodium Chloride Flush Syringe 10 Ml IV BID CORNELIUS Sodium Chloride 10 ml 04/24/19 23:36 04/25/19 02:04 Sodium Chloride Flush Syringe 10 Ml IV 10 ml PRN PRN Administration LINE FLUSH
[2019-04-25] MEDS: LEVAQUIN 500MG/100ML 500 MG/100 ML BAG IV SCH (09:52)
[2019-04-25] MEDS: SODIUM CHLORIDE FLUSH SYRINGE 10 ML IV SCH ×2 (09:54→22:05)
[2019-04-25] MEDS: LOVENOX SUB-Q SCH (09:54)
[2019-04-25] MEDS ORDERED: LOVENOX SUB-Q SCH (10:00)
[2019-04-25] MEDS ORDERED: NON-FORMULARY (Fluticasone/Salmeterol [Advair 500-50 Diskus] 1 EACH) IH SCH (10:00)
[2019-04-25] MEDS ORDERED: PROVENTIL IH PRN (10:40)
[2019-04-25] MEDS: GLUCOPHAGE PO SCH ×2 (11:16→17:37)
[2019-04-25] MEDS: BUSPAR PO SCH ×2 (11:17→22:03)
[2019-04-25] MEDS: ZESTRIL PO SCH (11:17)
[2019-04-25] MEDS: BUMEX PO SCH (11:17)
[2019-04-25] MEDS: BROVANA NEBU IH SCH ×2 (13:14→20:22)
[2019-04-25] MEDS ORDERED: BABY ASPIRIN PO SCH (18:00)
[2019-04-25] MEDS ORDERED: SOLU-Medrol IV SCH (18:30)
[2019-04-25] MEDS: PULMICORT IH SCH (20:22)
[2019-04-25 21:28] VITALS: BP 134/60
[2019-04-26] MEDS: SOLU-Medrol IV SCH ×2 (01:47→09:28)
[2019-04-26] MEDS: DUONEB *Not for PRN Use IH SCH ×2 (02:02→08:30)
[2019-04-26] MEDS: BUMEX PO SCH (06:43)
[2019-04-26] MEDS: PULMICORT IH SCH (08:29)
[2019-04-26] MEDS: BROVANA NEBU IH SCH (08:30)
[2019-04-26] MEDS: ZESTRIL PO SCH (09:16)
[2019-04-26] MEDS: LOVENOX SUB-Q SCH (09:16)
[2019-04-26] MEDS: GLUCOPHAGE PO SCH (09:16)
[2019-04-26] MEDS: LEVAQUIN 500MG/100ML 500 MG/100 ML BAG IV SCH (09:16)
[2019-04-26] MEDS: SODIUM CHLORIDE FLUSH SYRINGE 10 ML IV SCH (09:16)
[2019-04-26] MEDS: HumaLOG SUB-Q SCH (09:17)
[2019-04-26] MEDS: BUSPAR PO SCH (09:52)
--- NOTE | 2019-04-26 10:58 | Discharge Summary ---
Providers - Providers Date of Admission: 04/24/19 23:36 Date of discharge: 04/26/19 Attending physician: TEN GILLIAM Primary care physician: CUT PRESSMAN Hospitalization Reason for admission: worsening shortness of breath Condition: Fair Pertinent studies: Chest x-ray; mild pulmonary venous congestion, prominent interstitial markings edema versus interstitial fibrosis Hospital course: 53-year-old woman history of Hypertension, TIA, diabetes, DJD with chronic right side numbness, seizure, asthma, Fibromyalgia comes emergency room with complaints of shortness of breath started today not really what her nebulized treatments. She was seen at [place] yesterday for same symptoms and dischrge from the ER. Also complaining of non productive cough, + fever, chills, Patient was initially evaluated and noted to have Acute Exacerbation of Bronchial Asthma, recurrent bronchitis, Management with oxygen titrated to saturation more than 90, on IV high-dose IV steroids and IV antibiotics nebulizers inhalation steroids, Today patient is comfortable no new complaints Symptoms significantly improved, Evaluated for home oxygen, patient's O2 sats resting and ambulatory about 94-95% No indication for home oxygen, The patient is comfortable new complaints with signs stable physical examination Prior to discharge is unremarkable Stable at discharge advised to follow with primary care physician per schedule Also advised to see private pricing lead as needed Patient verbalized understanding Discharge diagnosis --Acute Respiratory Failure; improved --Asthma exacerbation with Bronchitis --Hypertension --Diabetes --Seizure --Chronic pain --Depression --Fibromyalgia Patient is being discharged on tapering dose of prednisone and antibiotics Stable to discharge Disposition: DC-01 TO HOME OR SELFCARE Time spent for discharge: 32 min Core Measure Documentation - Palliative Care Palliative Care/ Comfort Measures: Not Applicable - Core Measures Any of the following diagnoses?: none Exam - Constitutional Vitals: Temp Pulse Resp BP Pulse Ox 99.0 F 67 20 134/60 92 04/25/19 20:13 04/26/19 08:43 04/26/19 08:43 04/25/19 20:13 04/26/19 08:29 General appearance: Present: no acute distress, well-nourished - EENT Eyes: Present: PERRL, EOM intact - Neck Neck: Present: supple, normal ROM - Respiratory Respiratory effort: normal Respiratory: bilateral: diminished, wheezing, negative: rales, rhonchi - Cardiovascular Rhythm: regular Heart Sounds: Present: S1 & S2 - Extremities Extremities: no ischemia, No edema - Abdominal General gastrointestinal: Present: soft, non-tender, non-distended, normal bowel sounds - Integumentary Integumentary: Present: clear, warm - Musculoskeletal Musculoskeletal: strength equal bilaterally, generalized weakness - Psychiatric Psychiatric: appropriate mood/affect, cooperative - Neurologic Neurologic: CNII-XII intact, moves all extremities Plan Activity: advance as tolerated Diet: regular Additional Instructions: If you have shortness of breath or chest pain. Contact MD or go to emergency room Follow up with: PRIMARY CARE,MD [Primary Care Provider] - 7 Days Prescriptions: Prednisone [predniSONE 10 mg (6-Day Pack, 21 Tabs)] 10 mg PO .TAPER #1 tab.ds.pk ALBUTEROL Inhaler (OR & NICU) [ProAir HFA Inhaler] 2 puff IH QID PRN #1 inhalation PRN Reason: Shortness Of Breath Azithromycin [Zithromax Z-STEFFI] 0 mg PO DAILY #1 tab
== END 2019-04-26 11:15 | disposition home or self-care (01) | DRG 189 ==
LOC: ED 20:53 → 4A 23:36
PROVIDERS: ADMIT Internal Medicine; ATTEND Internal Medicine
PROC: 5A09457 Assistance with Respiratory Ventilation, 24-96 Consecutive Hours, Continuous Positive Airway Pressure (ICD-10-PCS; principal; 2019-04-24)
PROC: 5A09357 Assistance with Respiratory Ventilation, Less than 24 Consecutive Hours, Continuous Positive Airway Pressure (ICD-10-PCS; 2019-04-25)
DX: J96.01 Acute respiratory failure with hypoxia (principal); J18.9 Pneumonia, unspecified organism; J45.42 Moderate persistent asthma with status asthmaticus; K21.9 Gastro-esophageal reflux disease without esophagitis; I11.0 Hypertensive heart disease with heart failure; I50.9 Heart failure, unspecified; R56.9 Unspecified convulsions; G89.29 Other chronic pain; F32.9 Major depressive disorder, single episode, unspecified; M79.7 Fibromyalgia; M19.90 Unspecified osteoarthritis, unspecified site; G43.909 Migraine, unspecified, not intractable, without status migrainosus; M41.9 Scoliosis, unspecified; Z90.49 Acquired absence of other specified parts of digestive tract; Z98.51 Tubal ligation status; Z88.8 Allergy status to other drugs, medicaments and biological substances; Z91.013 Allergy to seafood; Z86.73 Personal history of transient ischemic attack (TIA), and cerebral infarction without residual deficits; Z82.49 Family history of ischemic heart disease and other diseases of the circulatory system
CPT/HCPCS: 36415; 71045; 80048; 80053; 82140; 82550; 82553; 82962; 84484; 85025; 93005; 93010; 94640; 94660; 94760; 96365; G0378; J0692; J1650; J1815; J1956; J2920; J2930

== ENCOUNTER 2019-05-20 10:53 | Inpatient (IN) | payer MEDICAID ==
[2019-05-20] MEDS ORDERED: ASPIRIN PO ONE (11:16)
--- NOTE | 2019-05-20 11:53 | XRay Report ---
CHEST 2 VIEWS INDICATION: Chest pain and neck pain for one day. COMPARISON: 04/24/2019 FINDINGS: Support devices: None. Heart: Within normal limits. Lungs/pleura: No acute air space or interstitial disease. No pneumothorax. Additional findings: None. IMPRESSION: No acute findings. Signer Name: Jair Cantu Jr, MD Signed: 05/20/2019 11:49 AM Workstation Name: [id number]
[2019-05-20] MEDS ORDERED: PEPCID IV ONE (12:18)
[2019-05-20] MEDS ORDERED: CARAFATE PO ONE (12:18)
[2019-05-20] MEDS ORDERED: ZOFRAN IV ONE (12:20)
--- NOTE | 2019-05-20 12:20 | Emergency Department Report ---
ED Chest Pain HPI - General Chief Complaint: Chest Pain Stated Complaint: CHEST PAIN Time Seen by Provider: 05/20/19 12:10 Source: patient, RN notes reviewed, old records reviewed Mode of arrival: Ambulatory Limitations: No Limitations - History of Present Illness Initial Comments: This is a 53-year-old female. Her past medical history includes diabetes, hypertension, high cholesterol, bronchitis, fibromyalgia. She presents to the ER with a complaint of nontraumatic central and left-sided chest pain. This chest pain is associated with nontraumatic left-sided discomfort, worse than usual, and shortness of breath. Shortness of breath is described as difficulty taking a complete breath. Patient reports no recent cardiac risk stratification. She is taking aspirin. She denies DVT, pulmonary embolism risk factors. Patient reports no recent crack cocaine use, and the patient denies nitroglycerin use. MD Complaint: chest pain, other -: Gradual, hour(s) Onset: during rest Pain Location: substernal, left chest Pain Radiation: neck Severity: moderate Quality: aching, other (patient states pain feels like something is squeezing around her chest.) Consistency: constant Improves With: nothing Worsens With: nothing Aspirin use within the Past 7 Days: (1) Yes - Related Data On Oral Contraceptives: No Home Medications Medication Instructions Recorded Confirmed Last Taken Aspirin [Aspirin BABY CHEW TAB] 81 mg PO QPM 01/21/15 05/20/19 2 Days Ago ~11/18/17 raNITIdine HCl [Ranitidine 150mg 150 mg PO BID 01/21/15 05/20/19 05/20/19 Cap] metFORMIN [Glucophage] 500 mg PO BIDWM 11/20/17 05/20/19 05/20/19 Fluticasone/Salmeterol [Advair 1 each IH BID 10/11/18 05/20/19 05/20/19 500-50 Diskus] HYDROcodone/APAP 10-325 [[place] 1 each PO 5XD PRN 10/11/18 05/20/19 05/20/19 10-325 mg TAB] Simvastatin [Zocor] 10 mg PO HS 10/11/18 05/20/19 05/19/19 Bumetanide [Bumetanide 2 mg tab] 2 mg PO DAILY 05/20/19 05/20/19 Unknown Cyclobenzaprine [Flexeril] 10 mg PO TID PRN 05/20/19 05/20/19 Unknown Duloxetine HCl [Cymbalta] 60 mg PO QDAY 05/20/19 05/20/19 Unknown Fluticasone [Flonase] 1 spray NS QDAY 05/20/19 05/20/19 Unknown Gabapentin [Neurontin] 900 mg PO TID 05/20/19 05/20/19 05/20/19 Loratadine [Claritin] 10 mg PO DAILY 05/20/19 05/20/19 Unknown Meloxicam [Mobic] 7.5 mg PO BID 05/20/19 05/20/19 Unknown Previous Rx's Medication Instructions Recorded Last Taken Type Lisinopril [Zestril TAB] 10 mg PO QDAY tablet 07/11/18 05/20/19 Rx ALBUTEROL Inhaler (OR & NICU) 2 puff IH QID PRN #1 inhalation 04/26/19 Unknown Rx [ProAir HFA Inhaler] Allergies Allergy/AdvReac Type Severity Reaction Status Date / Time pregabalin [From Lyrica] Allergy Unknown Verified 05/20/19 11:02 topiramate [From Topamax] Allergy Seizure Verified 05/20/19 11:02 shellfish Allergy Hives Uncoded 04/11/17 14:53 paragoric AdvReac Unknown Uncoded 04/11/17 14:53 Heart Score - HEART Score History: Slightly suspicious EKG: Non-specific Age: 45-65 Risk factors: > 3 risk factors or hx of atherosclerotic disease Troponin: < normal limit HEART Score: 4 - Critical Actions Critical Actions: 4-6 pts:12-16.6% risk of adverse cardiac event. Should be admitted ED Review of Systems ROS: Stated complaint: CHEST PAIN Other details as noted in HPI Constitutional: denies: fever Eyes: denies: vision change Respiratory: shortness of breath Cardiovascular: chest pain Gastrointestinal: vomiting Genitourinary: denies: dysuria Musculoskeletal: arthralgia, myalgia Skin: denies: lesions Neurological: other (chronic weakness, neither knew, worsened nor different) Psychiatric: anxiety ED Past Medical Hx - Past Medical History Hx Hypertension: Yes Hx Congestive Heart Failure: No Hx Diabetes: Yes Hx GERD: Yes Hx Arthritis: Yes Hx Headaches / Migraines: Yes Hx Seizures: Yes Hx Asthma: Yes Hx COPD: No Hx HIV: No Additional medical history: scoliosis, Nerve problems, pinched nerves, neck problems, back problems., "TIA". FIBROMYALGIA - Surgical History Hx Cholecystectomy: Yes Hx Appendectomy: Yes Additional Surgical History: Tubal ligation. NECK SURGERY 2016 - Social History Smoking Status: Never Smoker Substance Use Type: None - Medications Home Medications: Home Medications Medication Instructions Recorded Confirmed Last Taken Type Aspirin [Aspirin BABY CHEW TAB] 81 mg PO QPM 01/21/15 05/20/19 2 Days Ago History ~11/18/17 raNITIdine HCl [Ranitidine 150mg 150 mg PO BID 01/21/15 05/20/19 05/20/19 History Cap] metFORMIN [Glucophage] 500 mg PO BIDWM 11/20/17 05/20/19 05/20/19 History Lisinopril [Zestril TAB] 10 mg PO QDAY tablet 07/11/18 05/20/19 05/20/19 Rx Fluticasone/Salmeterol [Advair 1 each IH BID 10/11/18 05/20/19 05/20/19 History 500-50 Diskus] HYDROcodone/APAP 10-325 [[place] 1 each PO 5XD PRN 10/11/18 05/20/19 05/20/19 History 10-325 mg TAB] Simvastatin [Zocor] 10 mg PO HS 10/11/18 05/20/19 05/19/19 History ALBUTEROL Inhaler (OR & NICU) 2 puff IH QID PRN #1 inhalation 04/26/19 05/20/19 Unknown Rx [ProAir HFA Inhaler] Bumetanide [Bumetanide 2 mg tab] 2 mg PO DAILY 05/20/19 05/20/19 Unknown History Cyclobenzaprine [Flexeril] 10 mg PO TID PRN 05/20/19 05/20/19 Unknown History Duloxetine HCl [Cymbalta] 60 mg PO QDAY 05/20/19 05/20/19 Unknown History Fluticasone [Flonase] 1 spray NS QDAY 05/20/19 05/20/19 Unknown History Gabapentin [Neurontin] 900 mg PO TID 05/20/19 05/20/19 05/20/19 History Loratadine [Claritin] 10 mg PO DAILY 05/20/19 05/20/19 Unknown History Meloxicam [Mobic] 7.5 mg PO BID 05/20/19 05/20/19 Unknown History ED Physical Exam - General Limitations: No Limitations General appearance: alert, in no apparent distress, obese - Head Head exam: Present: atraumatic, normocephalic - Eye Eye exam: Present: normal appearance, EOMI. Absent: nystagmus - ENT ENT exam: Present: normal exam, normal orophraynx, mucous membranes moist, normal external ear exam - Neck Neck exam: Present: normal inspection, full ROM. Absent: tenderness, men ingismus - Respiratory Respiratory exam: Present: normal lung sounds bilaterally, chest wall tenderness. Absent: respiratory distress, wheezes, rales, rhonchi - Cardiovascular Cardiovascular Exam: Present: regular rate, normal rhythm, normal heart sounds. Absent: bradycardia, tachycardia, irregular rhythm, systolic murmur, diastolic murmur, rubs, gallop - GI/Abdominal GI/Abdominal exam: Present: soft. Absent: distended, tenderness, guarding, rebound, rigid, pulsatile mass - Extremities Exam Extremities exam: Present: normal inspection, full ROM, other (2+ pulses noted in the bilateral upper, lower extremities. Compartments soft. No long bony tenderness. The pelvis is stable.). Absent: pedal edema, calf tenderness - Back Exam Back exam: Present: normal inspection, full ROM. Absent: tenderness, CVA tenderness (R), CVA tenderness (L), paraspinal tenderness, vertebral tenderness - Neurological Exam Neurological exam: Present: alert, oriented X3, other (moving 4 extremities spontaneously. There is no facial droop. Sensation intact to light touch in 4 extremities. Speaking in full sentences.) - Psychiatric Psychiatric exam: Present: normal affect, normal mood - Skin Skin exam: Present: warm, dry, intact, normal color. Absent: rash ED Course Vital Signs 05/20/19 05/20/19 05/20/19 11:14 12:49 14:08 Temperature 98 F Pulse Rate 66 64 73 Respiratory 20 18 15 Rate Blood Pressure 143/71 125/65 150/81 [Left] O2 Sat by Pulse 94 99 96 Oximetry ALINA score - Alina Score Age > 65: (0) No Aspirin use within the Past 7 Days: (1) Yes 3 or more CAD Risk Factors: (1) Yes 2 or more Angina events in past 24 hrs: (1) Yes Known CAD with more than 50% Stenosis: (0) No Elevated Cardiac Markers: (0) No ST Deviation Greater than 0.5mm: (0) No ALINA Score: 3 ED Medical Decision Making - Lab Data Result diagrams: 05/20/19 12:20 05/20/19 12:20 Vital Signs 05/20/19 05/20/19 11:14 12:49 Temperature 98 F Pulse Rate 66 64 Respiratory 20 18 Rate Blood Pressure 143/71 125/65 [Left] O2 Sat by Pulse 94 99 Oximetry Lab Results 05/20/19 05/20/19 05/20/19 Range/Units 12:20 12:20 12:24 WBC 6.5 (4.5-11.0) K/mm3 RBC 4.29 (3.65-5.03) M/mm3 Hgb 13.2 (10.1-14.3) gm/dl Hct 39.2 (30.3-42.9) % MCV 91 (79-97) fl MCH 31 (28-32) pg MCHC 34 (30-34) % RDW 13.6 (13.2-15.2) % Plt Count 273 (140-440) K/mm3 Lymph % (Auto) 26.6 (13.4-35.0) % [place] % (Auto) 9.3 H (0.0-7.3) % Eos % (Auto) 4.2 (0.0-4.3) % Baso % (Auto) 0.8 (0.0-1.8) % Lymph # 1.7 (1.2-5.4) K/mm3 [place] # 0.6 (0.0-0.8) K/mm3 Eos # 0.3 (0.0-0.4) K/mm3 Baso # 0.1 (0.0-0.1) K/mm3 Seg Neutrophils % 59.1 (40.0-70.0) % Seg Neutrophils # 3.8 (1.8-7.7) K/mm3 PT 12.5 (12.2-14.9) Sec. INR 0.96 (0.87-1.13) Sodium 141 (137-145) mmol/L Potassium 4.6 (3.6-5.0) mmol/L Chloride 102.5 (98-107) mmol/L Carbon Dioxide 29 (22-30) mmol/L Anion Gap 14 mmol/L BUN 16 (7-17) mg/dL Creatinine 0.8 (0.7-1.2) mg/dL Estimated GFR > 60 ml/min BUN/Creatinine Ratio 20 % Glucose 103 H (65-100) mg/dL Calcium 9.1 (8.4-10.2) mg/dL Magnesium (1.7-2.3) mg/dL Total Creatine Kinase (30-135) units/L Troponin T < 0.010 (0.00-0.029) ng/mL 05/20/19 Range/Units 12:24 WBC (4.5-11.0) K/mm3 RBC (3.65-5.03) M/mm3 Hgb (10.1-14.3) gm/dl Hct (30.3-42.9) % MCV (79-97) fl MCH (28-32) pg MCHC (30-34) % RDW (13.2-15.2) % Plt Count (140-440) K/mm3 Lymph % (Auto) (13.4-35.0) % [place] % (Auto) (0.0-7.3) % Eos % (Auto) (0.0-4.3) % Baso % (Auto) (0.0-1.8) % Lymph # (1.2-5.4) K/mm3 [place] # (0.0-0.8) K/mm3 Eos # (0.0-0.4) K/mm3 Baso # (0.0-0.1) K/mm3 Seg Neutrophils % (40.0-70.0) % Seg Neutrophils # (1.8-7.7) K/mm3 PT (12.2-14.9) Sec. INR (0.87-1.13) Sodium (137-145) mmol/L Potassium (3.6-5.0) mmol/L Chloride (98-107) mmol/L Carbon Dioxide (22-30) mmol/L Anion Gap mmol/L BUN (7-17) mg/dL Creatinine (0.7-1.2) mg/dL Estimated GFR ml/min BUN/Creatinine Ratio % Glucose (65-100) mg/dL Calcium (8.4-10.2) mg/dL Magnesium 1.90 (1.7-2.3) mg/dL Total Creatine Kinase 117 (30-135) units/L Troponin T (0.00-0.029) ng/mL - EKG Data -: EKG Interpreted by Me EKG shows normal: sinus rhythm Rate: normal - EKG Data When compared to previous EKG there are: no significant change 05/20/19 14:47 This is a normal sinus rhythm, 69 beats per minute, borderline leftward axis deviation, poor R-wave progression, borderline left anterior fascicular block, this is an abnormal EKG, the EKG is not consistent with st elevation myocardial infarction, appears unchanged from prior EKG from 2018. - Radiology Data Radiology results: report reviewed, image reviewed X-ray of the chest is negative for acute disease - Medical Decision Making Differential diagnosis, including not limited to: GERD, gastritis, costochondritis, hiatal hernia, acute coronary syndrome Assessment and plan: 53-year-old female with chest pain, shortness of breath, nonspecific neck pain, not tachycardic, not hypoxic, endorses no pulmonary embolism or DVT risk factors, low risk by well's criteria, with chest pain and abnormal EKG, moderate risk for major adverse cardiac event as per heart score, patient to be admitted to the medical service for cardiac risk stratification. We will treat her pain in her symptoms, discussed his care with the patient, who verbalized understanding, and was amenable to hospitalization. Our hospital physician, Dr. Haroldo Putnam has graciously agreed to with the patient to the medical s ervice for a cardiac risk stratification. Critical care attestation.: If time is entered above; I have spent that time in minutes in the direct care of this critically ill patient, excluding procedure time. ED Disposition Clinical Impression: Shortness of breath, Acute chest pain, Abnormal EKG Disposition: OP ADMIT IP TO THIS HOSP Is pt being admited?: Yes Does the pt Need Aspirin: Yes Condition: Stable
[2019-05-20 12:41] LABS: Basophils # (Auto) 0.1 K/mm3 (0.0-0.1); Basophils % (Auto) 0.8 % (0.0-1.8); Eosinophils # (Auto) 0.3 K/mm3 (0.0-0.4); Eosinophils % (Auto) 4.2 % (0.0-4.3); Hematocrit 39.2 % (30.3-42.9); Hemoglobin 13.2 gm/dl (10.1-14.3); Lymphocytes # (Auto) 1.7 K/mm3 (1.2-5.4); Lymphocytes % (Auto) 26.6 % (13.4-35.0); Mean Corpuscular HGB Conc 34 % (30-34); Mean Corpuscular Hemoglobin 31 pg (28-32); Mean Corpuscular Volume 91 fl (79-97); Monocytes # (Auto) 0.6 K/mm3 (0.0-0.8); Monocytes % (Auto) 9.3 % (0.0-7.3); Platelet Count 273 K/mm3 (140-440); Red Blood Count 4.29 M/mm3 (3.65-5.03); Red Cell Distribution Width 13.6 % (13.2-15.2)
[2019-05-20 12:51] LABS: BUN/Creatinine Ratio 20; Blood Urea Nitrogen 16 mg/dL (7-17); Calcium 9.1 mg/dL (8.4-10.2); Hemolysis Index 11
[2019-05-20 12:52] LABS: INR 0.96 (0.87-1.13)
--- NOTE | 2019-05-20 21:42 | History and Physical Report ---
History of Present Illness Date of examination: 05/20/19 Date of admission: 05/20/19 13:13 Chief complaint: Left-sided chest pain since yesterday History of present illness: 53-year-old female, obese comes in for left-sided chest pain since yesterday. Patient has multiple medical problems including type 2 diabetes, hyperlipidemia, muscle spasms, depression, peripheral neuropathy and arthritis. Patient also has hypertension. Patient comes in for left-sided chest pain which is intermittent in nature since yesterday. No diaphoresis or palpitations. Has some difficulty breathing. No radiation. Did not have any stress test recently. No exacerbating or relieving factors. No recent travel. No fever or chills. cardiac event. Should be admitted Past Medical History Hypertension: Yes Diabetes: Yes GERD: Yes Arthritis: Yes Headaches / Migraines: Yes Seizures: Yes Asthma: Yes Additional medical history: scoliosis, Nerve problems, pinched nerves, neck problems, back problems., "TIA". FIBROMYALGIA Surgical History Cholecystectomy: Yes Appendectomy: Yes Additional Surgical History: Tubal ligation. NECK SURGERY 2016 Social History Smoking Status: Never Smoker Substance Use Type: None Medications Home Medications: Home Medications Medication Instructions Recorded Confirmed Last Taken Type Aspirin [Aspirin BABY CHEW TAB] 81 mg PO QPM 01/21/15 05/20/19 2 Days Ago History ~11/18/17 raNITIdine HCl [Ranitidine 150mg 150 mg PO BID 01/21/15 05/20/19 05/20/19 History Cap] metFORMIN [Glucophage] 500 mg PO BIDWM 11/20/17 05/20/19 05/20/19 History Lisinopril [Zestril TAB] 10 mg PO QDAY tablet 07/11/18 05/20/19 05/20/19 Rx Fluticasone/Salmeterol [Advair 1 each IH BID 10/11/18 05/20/19 05/20/19 History 500-50 Diskus] HYDROcodone/APAP 10-325 [[place] 1 each PO 5XD PRN 10/11/18 05/20/19 05/20/19 Hist ory 10-325 mg TAB] Simvastatin [Zocor] 10 mg PO HS 10/11/18 05/20/19 05/19/19 History ALBUTEROL Inhaler (OR & NICU) 2 puff IH QID PRN #1 inhalation 04/26/19 05/20/19 Unknown Rx [ProAir HFA Inhaler] Bumetanide [Bumetanide 2 mg tab] 2 mg PO DAILY 05/20/19 05/20/19 Unknown History Cyclobenzaprine [Flexeril] 10 mg PO TID PRN 05/20/19 05/20/19 Unknown History Duloxetine HCl [Cymbalta] 60 mg PO QDAY 05/20/19 05/20/19 Unknown History Fluticasone [Flonase] 1 spray NS QDAY 05/20/19 05/20/19 Unknown History Gabapentin [Neurontin] 900 mg PO TID 05/20/19 05/20/19 05/20/19 History Loratadine [Claritin] 10 mg PO DAILY 05/20/19 05/20/19 Unknown History Meloxicam [Mobic] 7.5 mg PO BID 05/20/19 05/20/19 Unknown History Review of Systems ROS: Stated complaint: CHEST PAIN Other details as noted in HPI Constitutional: denies: fever Eyes: denies: vision change Respiratory: shortness of breath Cardiovascular: chest pain Gastrointestinal: vomiting Genitourinary: denies: dysuria Musculoskeletal: arthralgia, myalgia Skin: denies: lesions Neurological: other (chronic weakness, neither knew, worsened nor different) Psychiatric: anxiety 14 point review of systems done--otherwise negative Medications and Allergies Allergies Allergy/AdvReac Type Severity Reaction Status Date / Time pregabalin [From Lyrica] Allergy Unknown Verified 05/20/19 11:02 topiramate [From Topamax] Allergy Seizure Verified 05/20/19 11:02 shellfish Allergy Hives Uncoded 04/11/17 14:53 paragoric AdvReac Unknown Uncoded 04/11/17 14:53 Home Medications Medication Instructions Recorded Confirmed Last Taken Type Aspirin [Aspirin BABY CHEW TAB] 81 mg PO QPM 01/21/15 05/20/19 2 Days Ago History ~11/18/17 raNITIdine HCl [Ranitidine 150mg 150 mg PO BID 01/21/15 05/20/19 05/20/19 History Cap] metFORMIN [Glucophage] 500 mg PO BIDWM 11/20/17 05/20/19 05/20/19 History Lisinopril [Zestril TAB] 10 mg PO QDAY tablet 07/11/18 05/20/19 05/20/19 Rx Fluticasone/Salmeterol [Advair 1 each IH BID 10/11/18 05/20/19 05/20/19 History 500-50 Diskus] HYDROcodone/APAP 10-325 [[place] 1 each PO 5XD PRN 10/11/18 05/20/19 05/20/19 History 10-325 mg TAB] Simvastatin [Zocor] 10 mg PO HS 10/11/18 05/20/19 05/19/19 History ALBUTEROL Inhaler (OR & NICU) 2 puff IH QID PRN #1 inhalation 04/26/19 05/20/19 Unknown Rx [ProAir HFA Inhaler] Bumetanide [Bumetanide 2 mg tab] 2 mg PO DAILY 05/20/19 05/20/19 Unknown History Cyclobenzaprine [Flexeril] 10 mg PO TID PRN 05/20/19 05/20/19 Unknown History Duloxetine HCl [Cymbalta] 60 mg PO QDAY 05/20/19 05/20/19 Unknown History Fluticasone [Flonase] 1 spray NS QDAY 05/20/19 05/20/19 Unknown History Gabapentin [Neurontin] 900 mg PO TID 05/20/19 05/20/19 05/20/19 History Loratadine [Claritin] 10 mg PO DAILY 05/20/19 05/20/19 Unknown History Meloxicam [Mobic] 7.5 mg PO BID 05/20/19 05/20/19 Unknown History Active Meds: Active Medications Nitroglycerin (Nitrostat) 0.4 mg SL .Q5MIN PRN PRN Reason: Chest Pain Exam - Constitutional Vitals: Temp Pulse Resp BP Pulse Ox 98.0 F 74 18 110/54 91 05/20/19 19:27 05/20/19 19:27 05/20/19 19:27 05/20/19 19:27 05/20/19 19:27 General appearance: Present: no acute distress, well-nourished - EENT Eyes: Present: PERRL ENT: hearing intact, clear oral mucosa - Neck Neck: Present: supple, normal ROM - Respiratory Respiratory effort: normal Respiratory: bilateral: CTA - Cardiovascular Heart rate: 69 Rhythm: regular Heart Sounds: Present: S1 & S2. Absent: rub, click - Extremities Extremities: pulses symmetrical, No edema Peripheral Pulses: within normal limits - Abdominal General gastrointestinal: Present: soft, non-tender, non-distended, normal bowel sounds Female genitourinary: Present: normal - Rectal Rectal Exam: deferred - Integumentary Integumentary: Present: clear, warm, dry - Musculoskeletal Musculoskeletal: gait normal, strength equal bilaterally - Psychiatric Psychiatric: appropriate mood/affect, intact judgment & insight - Neurologic Neurologic: CNII-XII intact, moves all extremities - Allied Health Allied health notes reviewed: nursing, case management Results - Labs CBC & Chem 7: 05/20/19 12:20 05/20/19 12:20 Labs: Laboratory Last Values WBC 6.5 K/mm3 (4.5-11.0) 05/20/19 12:20 RBC 4.29 M/mm3 (3.65-5.03) 05/20/19 12:20 Hgb 13.2 gm/dl (10.1-14.3) 05/20/19 12:20 Hct 39.2 % (30.3-42.9) 05/20/19 12:20 MCV 91 fl (79-97) 05/20/19 12:20 MCH 31 pg (28-32) 05/20/19 12:20 MCHC 34 % (30-34) 05/20/19 12:20 RDW 13.6 % (13.2-15.2) 05/20/19 12:20 Plt Count 273 K/mm3 (140-440) 05/20/19 12:20 Lymph % (Auto) 26.6 % (13.4-35.0) 05/20/19 12:20 [place] % (Auto) 9.3 % (0.0-7.3) H 05/20/19 12:20 Eos % (Auto) 4.2 % (0.0-4.3) 05/20/19 12:20 Baso % (Auto) 0.8 % (0.0-1.8) 05/20/19 12:20 Lymph # 1.7 K/mm3 (1.2-5.4) 05/20/19 12:20 [place] # 0.6 K/mm3 (0.0-0.8) 05/20/19 12:20 Eos # 0.3 K/mm3 (0.0-0.4) 05/20/19 12:20 Baso # 0.1 K/mm3 (0.0-0.1) 05/20/19 12:20 Seg Neutrophils % 59.1 % (40.0-70.0) 05/20/19 12:20 Seg Neutrophils # 3.8 K/mm3 (1.8-7.7) 05/20/19 12:20 PT 12.5 Sec. (12.2-14.9) 05/20/19 12:24 INR 0.96 (0.87-1.13) 05/20/19 12:24 Sodium 141 mmol/L (137-145) 05/20/19 12:20 Potassium 4.6 mmol/L (3.6-5.0) 05/20/19 12:20 Chloride 102.5 mmol/L (98-107) 05/20/19 12:20 Carbon Dioxide 29 mmol/L (22-30) 05/20/19 12:20 14 mmol/L 05/20/19 12:20 BUN 16 mg/dL (7-17) 05/20/19 12:20 0.8 mg/dL (0.7-1.2) 05/20/19 12:20 Estimated GFR > 60 ml/min 05/20/19 12:20 20 % 05/20/19 12:20 Glucose 103 mg/dL (65-100) H 05/20/19 12:20 POC Glucose 130 (70-105) H 05/20/19 20:51 Calcium 9.1 mg/dL (8.4-10.2) 05/20/19 12:20 Magnesium 1.90 mg/dL (1.7-2.3) 05/20/19 12:24 117 units/L (30-135) 05/20/19 12:24 < 0.010 ng/mL (0.00-0.029) 05/20/19 16:01 Short CBC 05/20/19 Range/Units 12:20 WBC 6.5 (4.5-11.0) K/mm3 Hgb 13.2 (10.1-14.3) gm/dl Hct 39.2 (30.3-42.9) % Plt Count 273 (140-440) K/mm3 BMP 05/20/19 12:20 Sodium 141 Potassium 4.6 Chloride 102.5 Carbon Dioxide 29 BUN 16 Creatinine 0.8 Glucose 103 H Calcium 9.1 Cardiac Enzymes 05/20/19 05/20/19 05/20/19 Range/Units 12:20 12:24 14:36 Total Creatine Kinase 117 (30-135) units/L Troponin T < 0.010 < 0.010 (0.00-0.029) ng/mL 05/20/19 Range/Units 16:01 Total Creatine Kinase (30-135) units/L Troponin T < 0.010 (0.00-0.029) ng/mL - Imaging and Cardiology EKG: report reviewed (normal sinus rhythm heart rate of 69 per minute and no acute ST-T wave changes) Chest x-ray: report reviewed (no acute findings) Assessment and Plan Advance Directives: Yes (full code) VTE prophylaxis?: Chemical Plan of care discussed with patient/family: Yes - Patient Problems (1) Acute chest pain Current Visit: Yes Status: Acute Plan to address problem: Chest pain--rule out UT protocol Serial troponins Lexiscan in the morning Costochondritis and GERD in the differential diagnosis No chest wall tenderness-costochondritis unlikely (2) Hypertension Current Visit: Yes Status: Chronic Qualifiers: Hypertension type: essential hypertension Qualified Code(s): I10 - Essential (primary) hypertension Plan to address problem: Continue lisinopril (3) Type 2 diabetes mellitus Current Visit: Yes Status: Chronic Qualifiers: Diabetes mellitus retirement insulin use: without retirement use Plan to address problem: Continue metformin and coverage (4) Hyperlipidemia Current Visit: Yes Status: Chronic Qualifiers: Hyperlipidemia type: mixed hyperlipidemia Qualified Code(s): E78.2 - Mixed hyperlipidemia Plan to address problem: Continue statins (5) Peripheral neuropathy Current Visit: Yes Status: Chronic Qualifiers: Peripheral neuropathy type: polyneuropathy, unspecified Qualified Code(s): G62.9 - Polyneuropathy, unspecified Plan to address problem: Continue gabapentin (6) Asthma Current Visit: Yes Status: Chronic Qualifiers: Asthma complication type: unspecified Plan to address problem: Continue bronchodilators especially Advair (7) GERD (gastroesophageal reflux disease) Current Visit: Yes Status: Chronic Qualifiers: Esophagitis presence: with esophagitis Qualified Code(s): K21.0 - Gastro- esophageal reflux disease with esophagitis Plan to address problem: Continue ranitidine (8) Depression Current Visit: Yes Status: Chronic Qualifiers: Depression Type: unspecified Qualified Code(s): F32.9 - Major depressive disorder, single episode, unspecified Plan to address problem: Continue Cymbalta (9) DVT prophylaxis Current Visit: Yes Status: Acute Plan to address problem: Lovenox and GI prophylaxis
[2019-05-20] MEDS ORDERED: PROAIR IH PRN (21:47)
[2019-05-20] MEDS ORDERED: FLEXERIL PO PRN (21:47)
[2019-05-20] MEDS ORDERED: ZOFRAN IV PRN (21:49)
[2019-05-20] MEDS ORDERED: REGLAN IV PRN (21:49)
[2019-05-20] MEDS ORDERED: SODIUM CHLORIDE FLUSH SYRINGE 10 ML IV PRN (21:49)
[2019-05-20] MEDS ORDERED: TYLENOL PO PRN (21:49)
[2019-05-20] MEDS ORDERED: DILAUDID IV PRN (21:49)
[2019-05-20] MEDS ORDERED: NON-FORMULARY (Simvastatin [Zocor] 10 MG) PO SCH (22:00)
[2019-05-20] MEDS ORDERED: NON-FORMULARY (Fluticasone/Salmeterol [Advair 500-50 Diskus] 1 EACH) IH SCH (22:00)
[2019-05-20] MEDS ORDERED: NON-FORMULARY (Ranitidine Hcl [Ranitidine 150mg Cap] 150 MG) PO SCH (22:00)
[2019-05-20] MEDS: PEPCID PO SCH (22:30)
[2019-05-20] MEDS: PERCOCET 5/325 PO PRN (22:30)
[2019-05-20] MEDS: NEURONTIN PO SCH (22:30)
[2019-05-20] MEDS: ZESTRIL PO SCH (22:31)
[2019-05-20] MEDS: PRAVACHOL PO SCH (22:31)
[2019-05-20] MEDS: GLUCOPHAGE PO SCH (22:32)
[2019-05-20] MEDS: FLONASE NS SCH (22:32)
[2019-05-20] MEDS: MOBIC PO SCH (22:33)
[2019-05-20] MEDS: SODIUM CHLORIDE FLUSH SYRINGE 10 ML IV SCH (22:33)
[2019-05-20] MEDS: HumaLOG SUB-Q SCH (22:36)
[2019-05-20] MEDS ORDERED: PROVENTIL IH PRN (22:44)
[2019-05-21 05:25] LABS: Basophils % (Auto) 0.7 % (0.0-1.8); Eosinophils # (Auto) 0.4 K/mm3 (0.0-0.4); Eosinophils % (Auto) 5.3 % (0.0-4.3); Hematocrit 37.6 % (30.3-42.9); Hemoglobin 12.6 gm/dl (10.1-14.3); Lymphocytes # (Auto) 2.4 K/mm3 (1.2-5.4); Lymphocytes % (Auto) 36.4 % (13.4-35.0); Mean Corpuscular HGB Conc 34 % (30-34); Mean Corpuscular Hemoglobin 31 pg (28-32); Mean Corpuscular Volume 92 fl (79-97); Monocytes # (Auto) 0.6 K/mm3 (0.0-0.8); Monocytes % (Auto) 9.1 % (0.0-7.3); Platelet Count 253 K/mm3 (140-440); Red Blood Count 4.08 M/mm3 (3.65-5.03); Red Cell Distribution Width 13.6 % (13.2-15.2)
[2019-05-21 05:49] LABS: Alanine Aminotransferase 14 units/L (7-56); Albumin 3.6 g/dL (3.9-5); BUN/Creatinine Ratio 21; Blood Urea Nitrogen 19 mg/dL (7-17); Calcium 8.4 mg/dL (8.4-10.2); Hemolysis Index 5
[2019-05-21] MEDS ORDERED: LEXISCAN IV ONE ×2 (08:36→09:00)
[2019-05-21] MEDS ORDERED: NON-FORMULARY (Duloxetine Hcl [Cymbalta] 60 MG) PO SCH (10:00)
[2019-05-21] MEDS ORDERED: NON-FORMULARY (Bumetanide [Bumetanide 2 Mg Tab] 2 MG) PO SCH (10:00)
[2019-05-21] MEDS ORDERED: BUMEX PO SCH (10:00)
[2019-05-21] MEDS: PULMICORT IH SCH ×2 (12:02→20:11)
[2019-05-21] MEDS: BROVANA NEBU IH SCH ×2 (12:02→20:11)
[2019-05-21] MEDS: HumaLOG SUB-Q SCH ×2 (13:22→18:04)
[2019-05-21] MEDS: GLUCOPHAGE PO SCH ×2 (13:22→18:04)
[2019-05-21] MEDS: NEURONTIN PO SCH ×3 (13:22→21:38)
[2019-05-21] MEDS: CLARITIN PO SCH (13:28)
[2019-05-21] MEDS: CYMBALTA PO SCH (13:29)
[2019-05-21] MEDS: PEPCID PO SCH ×2 (13:29→21:37)
[2019-05-21] MEDS: ZESTRIL PO SCH (13:29)
[2019-05-21] MEDS: MOBIC PO SCH ×2 (13:30→21:37)
[2019-05-21] MEDS: FLONASE NS SCH (13:31)
[2019-05-21] MEDS: SODIUM CHLORIDE FLUSH SYRINGE 10 ML IV SCH ×2 (13:32→21:37)
--- NOTE | 2019-05-21 14:01 | Consultation ---
History of Present Illness Consult date: 05/21/19 Requesting physician: FREDA PAUL Consult reason: chest pain, other (abnormal stress test) History of present illness: The patient presented to the hospital with onset of substernal chest tightness which began 2 days ago. She also experienced some nausea but no diaphoresis or dyspnea. Today, she underwent a Lexiscan stress MPI which revealed a small reversible apical and anteroseptal defect. She also has a small, partially reversible inferobasilar defect. Past History Past Medical History: diabetes, hypertension, hyperlipidemia, seizures, other (Asthma, chronic pain syndrome) Past Surgical History: appendectomy, cholecystectomy, Other (tubal ligation and C-spine fusion) Social history: . denies: smoking, alcohol abuse Family history: CAD Medications and Allergies Allergies Allergy/AdvReac Type Severity Reaction Status Date / Time pregabalin [From Lyrica] Allergy Unknown Verified 05/20/19 11:02 topiramate [From Topamax] Allergy Seizure Verified 05/20/19 11:02 shellfish Allergy Hives Uncoded 04/11/17 14:53 paragoric AdvReac Unknown Uncoded 04/11/17 14:53 Home Medications Medication Instructions Recorded Confirmed Last Taken Type Aspirin [Aspirin BABY CHEW TAB] 81 mg PO QPM 01/21/15 05/20/19 2 Days Ago History ~11/18/17 raNITIdine HCl [Ranitidine 150mg 150 mg PO BID 01/21/15 05/20/19 05/20/19 History Cap] metFORMIN [Glucophage] 500 mg PO BIDWM 11/20/17 05/20/19 05/20/19 History Lisinopril [Zestril TAB] 10 mg PO QDAY tablet 07/11/18 05/20/19 05/20/19 Rx Fluticasone/Salmeterol [Advair 1 each IH BID 10/11/18 05/20/19 05/20/19 History 500-50 Diskus] HYDROcodone/APAP 10-325 [Chazy 1 each PO 5XD PRN 10/11/18 05/20/19 05/20/19 History 10-325 mg TAB] Simvastatin [Zocor] 10 mg PO HS 10/11/18 05/20/19 05/19/19 History ALBUTEROL Inhaler (OR & NICU) 2 puff IH QID PRN #1 inhalation 04/26/19 05/20/19 Unknown Rx [ProAir HFA Inhaler] Bumetanide [Bumetanide 2 mg tab] 2 mg PO DAILY 05/20/19 05/20/19 Unknown History Cyclobenzaprine [Flexeril] 10 mg PO TID PRN 05/20/19 05/20/19 Unknown History Duloxetine HCl [Cymbalta] 60 mg PO QDAY 05/20/19 05/20/19 Unknown History Fluticasone [Flonase] 1 spray NS QDAY 05/20/19 05/20/19 Unknown History Gabapentin [Neurontin] 900 mg PO TID 05/20/19 05/20/19 05/20/19 History Loratadine [Claritin] 10 mg PO DAILY 05/20/19 05/20/19 Unknown History Meloxicam [Mobic] 7.5 mg PO BID 05/20/19 05/20/19 Unknown History Active Meds: Active Medications Acetaminophen (Tylenol) 650 mg PO Q4H PRN PRN Reason: Pain MILD(1-3)/Fever >100.5/JARA Albuterol (Proventil) 2.5 mg IH Q4HRT PRN PRN Reason: Shortness Of Breath Arformoterol Tartrate (Brovana Nebu) 15 mcg IH Q12HRT [facility] Last Admin: 05/21/19 12:02 Dose: 15 mcg Documented by: Aspirin (Baby Aspirin) 81 mg PO QPM [facility] Budesonide (Pulmicort) 1 mg IH Q12HRT [facility] Last Admin: 05/21/19 12:02 Dose: 1 mg Documented by: Bumetanide (Bumex) 2 mg PO QDAY [facility] Last Admin: 05/21/19 13:28 Dose: 2 mg Documented by: Cyclobenzaprine HCl (Flexeril) 10 mg PO TID PRN PRN Reason: Muscle Spasm Duloxetine HCl (Cymbalta) 60 mg PO QDAY [facility] Last Admin: 05/21/19 13:29 Dose: 60 mg Documented by: Famotidine (Pepcid) 20 mg PO BID [facility] Last Admin: 05/21/19 13:29 Dose: 20 mg Documented by: Fluticasone Propionate (Flonase) 50 mcg NS QDAY [facility] Last Admin: 05/21/19 13:31 Dose: 50 mcg Documented by: Gabapentin (Neurontin) 900 mg PO TID [facility] Last Admin: 05/21/19 13:23 Dose: 900 mg Documented by: Hydromorphone HCl (Dilaudid) 0.5 mg IV Q3H PRN PRN Reason: Pain , Severe (7-10) Insulin Human Lispro (Humalog) 0 unit SUB-Q ACHS [facility]; Protocol Last Admin: 05/21/19 13:22 Dose: Not Given Documented by: Lisinopril (Zestril) 10 mg PO QDAY [facility] Last Admin: 05/21/19 13:29 Dose: 10 mg Documented by: Loratadine (Claritin) 10 mg PO DAILY [facility] Last Admin: 05/21/19 13:28 Dose: 10 mg Documented by: Meloxicam (Mobic) 7.5 mg PO BID [facility] Last Admin: 05/21/19 13:30 Dose: 7.5 mg Documented by: Metformin HCl (Glucophage) 500 mg PO BIDDIAB [facility] Last Admin: 05/21/19 13:22 Dose: Not Given Documented by: Metoclopramide HCl (Reglan) 10 mg IV Q6H PRN PRN Reason: Nausea And Vomiting Nitroglycerin (Nitrostat) 0.4 mg SL .Q5MIN PRN PRN Reason: Chest Pain Ondansetron HCl (Zofran) 4 mg IV Q8H PRN PRN Reason: Nausea And Vomiting Oxycodone/Acetaminophen (Percocet 5/325) 1 tab PO Q6H PRN PRN Reason: Pain, Moderate (4-6) Last Admin: 05/20/19 22:30 Dose: 1 tab Documented by: Pravastatin Sodium (Pravachol) 20 mg PO QHS [facility] Last Admin: 05/20/19 22:31 Dose: 20 mg Documented by: Sodium Chloride (Sodium Chloride Flush Syringe 10 Ml) 10 ml IV BID [facility] Last Admin: 05/21/19 13:32 Dose: 10 ml Documented by: Sodium Chloride (Sodium Chloride Flush Syringe 10 Ml) 10 ml IV PRN PRN PRN Reason: LINE FLUSH Review of Systems Constitutional: no fever, no chills Ears, nose, mouth and throat: no ear pain, no sore throat Cardiovascular: chest pain, no palpitations, no lightheadedness, no shortness of breath Respiratory: no cough, no hemoptysis, no shortness of breath Gastrointestinal: nausea, no abdominal pain, no vomiting, no diarrhea, no constipation Genitourinary Female: no dysuria, no urinary frequency Rectal: no pain, no bleeding Musculoskeletal: no neck stiffness, no neck pain, no myalgias Integumentary: no rash, no pruritis Neurological: no weakness, no parathesias, no numbness, no tingling, no headaches Endocrine: no cold intolerance, no heat intolerance Hematologic/Lymphatic: no easy bruising, no easy bleeding Allergic/Immunologic: no urticaria, no allergic rhinitis Physical Examination Vital Signs Temp Pulse Resp BP Pulse Ox 98 F 66 20 143/71 94 05/20/19 11:14 05/20/19 11:14 05/20/19 11:14 05/20/19 11:14 05/20/19 11:14 General appearance: no acute distress HEENT: Positive: EOMI, Normocephaly, Mucus Membranes Moist Neck: Positive: neck supple, trachea midline Cardiac: Positive: Reg Rate and Rhythm, S1/S2 Lungs: Positive: clear to auscultation Neuro: Positive: Grossly Intact Abdomen: Positive: Soft, Active Bowel Sounds. Negative: Tender Skin: Positive: Clear. Negative: Rash Musculoskeletal: Normal Range of Motion Extremities: Present: normal. Absent: edema Results 05/21/19 04:46 05/21/19 04:46 Cardiac Enzymes 05/21/19 Range/Units 04:46 AST 12 (5-40) units/L CBC 05/21/19 Range/Units 04:46 WBC 6.6 (4.5-11.0) K/mm3 RBC 4.08 (3.65-5.03) M/mm3 Hgb 12.6 (10.1-14.3) gm/dl Hct 37.6 (30.3-42.9) % Plt Count 253 (140-440) K/mm3 Lymph # 2.4 (1.2-5.4) K/mm3 Scott # 0.6 (0.0-0.8) K/mm3 Eos # 0.4 (0.0-0.4) K/mm3 Baso # 0.0 (0.0-0.1) K/mm3 Comprehensive Metabolic Panel 05/21/19 Range/Units 04:46 Sodium 143 (137-145) mmol/L Potassium 4.5 (3.6-5.0) mmol/L Chloride 103.2 (98-107) mmol/L Carbon Dioxide 29 (22-30) mmol/L BUN 19 H (7-17) mg/dL Creatinine 0.9 (0.7-1.2) mg/dL Glucose 108 H (65-100) mg/dL Calcium 8.4 (8.4-10.2) mg/dL AST 12 (5-40) units/L ALT 14 (7-56) units/L Alkaline Phosphatase 114 (35-129) units/L Total Protein 6.9 (6.3-8.2) g/dL Albumin 3.6 L (3.9-5) g/dL - Imaging and Cardiology EKG: image reviewed EKG interpretations - Telemetry EKG Rhythm: Sinus Rhythm (with 1st degreee AV block) Assessment and Plan Scheduled coronary angiography on Thursday morning. The test has been discussed with the patient in detail and she has agreed to proceed. - Patient Problems (1) Chest pain Current Visit: Yes Status: Acute (2) Abnormal nuclear stress test Current Visit: Yes Status: Acute (3) Hypertension Current Visit: Yes Status: Chronic Qualifiers: Hypertension type: essential hypertension Qualified Code(s): I10 - Essential (primary) hypertension (4) Asthma Current Visit: Yes Status: Chronic Qualifiers: Asthma complication type: unspecified (5) Type 2 diabetes mellitus Current Visit: Yes Status: Chronic (6) Chronic pain syndrome Current Visit: Yes Status: Chronic (7) Morbid obesity Current Visit: Yes Status: Chronic (8) Seizure disorder Current Visit: Yes Status: Chronic
--- NOTE | 2019-05-21 14:20 | Progress Note ---
Assessment and Plan Assessment and plan: Chest pain had abnormal stress test. Patient evaluated by cardiology For cardiac cath on Thursday Nitro prn aspirin Beta blockers Hypertension BP stable Diabetes mellitus type 2 Accucheck qac and hs Morbid obesity I counseled her on diet and exercise Asthnma, stable Seizure disorder seizure precautions Full code status History Interval history: Chest pain Hospitalist Physical - Physical exam Narrative exam: Gen: Not in acute distress, lying in bed, morbidly obese HEENT: Normocephalic, atraumatic Neck: supple, no JVD Heart: S1 and S2 reg, no murmurs, rubs or gallop Lungs: Clear, no crackles, no wheeze Abd: soft, non tender, non distended, normal BS Ext: No edema, no clubbing, no cyanosis Neuro:awake,alert, Oriented X 3. No focal signs - Constitutional Vitals: Temp Pulse Resp BP Pulse Ox 98.1 F 72 18 123/52 98 05/21/19 04:06 05/21/19 13:29 05/21/19 12:07 05/21/19 13:29 05/21/19 11:00 General appearance: Present: no acute distress Results - Labs CBC & Chem 7: 05/21/19 04:46 05/21/19 04:46 Labs: Laboratory Last Values WBC 6.6 K/mm3 (4.5-11.0) 05/21/19 04:46 RBC 4.08 M/mm3 (3.65-5.03) 05/21/19 04:46 Hgb 12.6 gm/dl (10.1-14.3) 05/21/19 04:46 Hct 37.6 % (30.3-42.9) 05/21/19 04:46 MCV 92 fl (79-97) 05/21/19 04:46 MCH 31 pg (28-32) 05/21/19 04:46 MCHC 34 % (30-34) 05/21/19 04:46 RDW 13.6 % (13.2-15.2) 05/21/19 04:46 Plt Count 253 K/mm3 (140-440) 05/21/19 04:46 Lymph % (Auto) 36.4 % (13.4-35.0) H 05/21/19 04:46 [place] % (Auto) 9.1 % (0.0-7.3) H 05/21/19 04:46 Eos % (Auto) 5.3 % (0.0-4.3) H 05/21/19 04:46 Baso % (Auto) 0.7 % (0.0-1.8) 05/21/19 04:46 Lymph # 2.4 K/mm3 (1.2-5.4) 05/21/19 04:46 [place] # 0.6 K/mm3 (0.0-0.8) 05/21/19 04:46 Eos # 0.4 K/mm3 (0.0-0.4) 05/21/19 04:46 Baso # 0.0 K/mm3 (0.0-0.1) 05/21/19 04:46 Seg Neutrophils % 48.5 % (40.0-70.0) 05/21/19 04:46 Seg Neutrophils # 3.2 K/mm3 (1.8-7.7) 05/21/19 04:46 PT 12.5 Sec. (12.2-14.9) 05/20/19 12:24 INR 0.96 (0.87-1.13) 05/20/19 12:24 Sodium 143 mmol/L (137-145) 05/21/19 04:46 Potassium 4.5 mmol/L (3.6-5.0) 05/21/19 04:46 Chloride 103.2 mmol/L (98-107) 05/21/19 04:46 Carbon Dioxide 29 mmol/L (22-30) 05/21/19 04:46 15 mmol/L 05/21/19 04:46 BUN 19 mg/dL (7-17) H 05/21/19 04:46 0.9 mg/dL (0.7-1.2) 05/21/19 04:46 Estimated GFR > 60 ml/min 05/21/19 04:46 21 % 05/21/19 04:46 Glucose 108 mg/dL (65-100) H 05/21/19 04:46 POC Glucose 104 (70-105) 05/21/19 11:35 5.9 % (4-6) 05/20/19 22:36 Calcium 8.4 mg/dL (8.4-10.2) 05/21/19 04:46 Magnesium 1.90 mg/dL (1.7-2.3) 05/20/19 12:24 0.20 mg/dL (0.1-1.2) 05/21/19 04:46 AST 12 units/L (5-40) 05/21/19 04:46 ALT 14 units/L (7-56) 05/21/19 04:46 114 units/L (35-129) 05/21/19 04:46 117 units/L (30-135) 05/20/19 12:24 < 0.010 ng/mL (0.00-0.029) 05/21/19 04:46 6.9 g/dL (6.3-8.2) 05/21/19 04:46 3.6 g/dL (3.9-5) L 05/21/19 04:46 1.1 % 05/21/19 04:46 Active Medications - Current Medications Current Medications: Generic Name Dose Route Start Last Admin Trade Name Freq PRN Reason Stop Dose Admin Acetaminophen 650 mg 05/20/19 21:49 Tylenol PO Q4H PRN Pain MILD(1-3)/Fever >100.5/JARA Albuterol 2.5 mg 05/20/19 22:44 Proventil IH Q4HRT PRN Shortness Of Breath Arformoterol Tartrate 15 mcg 05/21/19 08:00 05/21/19 12:02 Brovana Nebu IH 15 mcg Q12HRT [facility] Administration Aspirin 81 mg 05/21/19 18:00 Baby Aspirin PO QPM [facility] Budesonide 1 mg 05/21/19 08:00 05/21/19 12:02 Pulmicort IH 1 mg Q12HRT [facility] Administration Bumetanide 2 mg 05/21/19 10:00 05/21/19 13:28 Bumex PO 2 mg QDAY [facility] Administration Cyclobenzaprine HCl 10 mg 05/20/19 21:47 Flexeril PO TID PRN Muscle Spasm Duloxetine HCl 60 mg 05/21/19 10:00 05/21/19 13:29 Cymbalta PO 60 mg QDAY [facility] Administration Famotidine 20 mg 05/20/19 22:00 05/21/19 13:29 Pepcid PO 20 mg BID [facility] Administration Fluticasone Propionate 50 mcg 05/20/19 22:00 05/21/19 13:31 Flonase NS 50 mcg QDAY [facility] Administration Gabapentin 900 mg 05/20/19 22:00 05/21/19 13:23 Neurontin PO 900 mg TID [facility] Administration Hydromorphone HCl 0.5 mg 05/20/19 21:49 Dilaudid IV Q3H PRN Pain , Severe (7-10) Sodium Chloride 500 mls @ 50 mls/hr 05/21/19 15:00 Nacl 0.9% 500 Ml IV 05/22/19 00:59 DIRECT [facility] Insulin Human Lispro 0 unit 05/20/19 22:00 05/21/19 13:22 [facility] Protocol Lisinopril 10 mg 05/20/19 22:00 05/21/19 13:29 Zestril PO 10 mg QDAY [facility] Administration Loratadine 10 mg 05/21/19 10:00 05/21/19 13:28 Claritin PO 10 mg DAILY [facility] Administration Meloxicam 7.5 mg 05/20/19 22:00 05/21/19 13:30 Mobic PO 7.5 mg BID [facility] Administration Metformin HCl 500 mg 05/20/19 22:00 05/21/19 13:22 Glucophage PO Not Given BIDDIAB [facility] Metoclopramide HCl 10 mg 05/20/19 21:49 Reglan IV Q6H PRN Nausea And Vomiting Nitroglycerin 0.4 mg 05/20/19 12:18 Nitrostat SL .Q5MIN PRN Chest Pain Ondansetron HCl 4 mg 05/20/19 21:49 Zofran IV Q8H PRN Nausea And Vomiting Oxycodone/Acetaminophen 1 tab 05/20/19 21:49 05/20/19 22:30 Percocet 5/325 PO 1 tab Q6H PRN Administration Pain, Moderate (4-6) Pravastatin Sodium 20 mg 05/20/19 22:00 05/20/19 22:31 Pravachol PO 20 mg QHS [facility] Administration Sodium Chloride 10 ml 05/20/19 22:00 05/21/19 13:32 Sodium Chloride Flush Syringe 10 Ml IV 10 ml BID [facility] Administration Sodium Chloride 10 ml 05/20/19 21:49 Sodium Chloride Flush Syringe 10 Ml IV PRN PRN LINE FLUSH
[2019-05-21] MEDS ORDERED: NACL 0.9% 500 ML 500 ML IV SCH (15:00)
[2019-05-21] MEDS: NITROSTAT SL PRN ×2 (15:36→15:45)
[2019-05-21] MEDS: BABY ASPIRIN PO SCH (17:35)
[2019-05-21] MEDS: PRAVACHOL PO SCH (21:37)
[2019-05-21] MEDS: HEPARIN SUB-Q SCH (21:38)
--- NOTE | 2019-05-22 | Treadmill Report ---
LEXISCAN STRESS TEST REPORT. REASON FOR STUDY: Chest pain. STRESS TEST PROTOCOL: The patient received 0.4 mg of Lexiscan intravenously over 10 seconds. Tc-99m Tetrofosmin was subsequently injected. Baseline ECG, sinus rhythm with first degree AV block, septal myocardial infarction of undetermined age. Lexiscan ECG, no ischemic changes. No chest pain. No arrhythmias. IMPRESSION: Electrocardiographically, negative stress test. Nuclear imaging report to follow. [facility]# [id number] AGO/NTS
[2019-05-22] MEDS: HumaLOG SUB-Q SCH ×5 (00:50→23:42)
[2019-05-22] MEDS: HEPARIN SUB-Q SCH ×3 (06:05→21:36)
[2019-05-22] MEDS: BROVANA NEBU IH SCH ×2 (08:11→20:27)
[2019-05-22] MEDS: PULMICORT IH SCH ×2 (08:11→20:27)
--- NOTE | 2019-05-22 08:52 | Progress Note ---
Assessment and Plan Assessment and plan: Chest pain had abnormal stress test. Patient evaluated by cardiology For cardiac cath on Thursday Nitro prn aspirin Beta blockers Hypertension BP stable Diabetes mellitus type 2 Accucheck qac and hs Morbid obesity I counseled her on diet and exercise Asthnma, stable Seizure disorder seizure precautions Full code status Cardiac cath tomorrow. History Interval history: Chest pain, resolved No shortness of breath Hospitalist Physical - Constitutional Vitals: Temp Pulse Resp BP Pulse Ox 98.0 F 62 18 104/48 91 05/22/19 07:20 05/22/19 04:31 05/22/19 07:20 05/22/19 07:20 05/22/19 04:31 General appearance: Present: no acute distress Results - Labs CBC & Chem 7: 05/21/19 04:46 05/21/19 04:46 Labs: Laboratory Last Values WBC 6.6 K/mm3 (4.5-11.0) 05/21/19 04:46 RBC 4.08 M/mm3 (3.65-5.03) 05/21/19 04:46 Hgb 12.6 gm/dl (10.1-14.3) 05/21/19 04:46 Hct 37.6 % (30.3-42.9) 05/21/19 04:46 MCV 92 fl (79-97) 05/21/19 04:46 MCH 31 pg (28-32) 05/21/19 04:46 MCHC 34 % (30-34) 05/21/19 04:46 RDW 13.6 % (13.2-15.2) 05/21/19 04:46 Plt Count 253 K/mm3 (140-440) 05/21/19 04:46 Lymph % (Auto) 36.4 % (13.4-35.0) H 05/21/19 04:46 [place] % (Auto) 9.1 % (0.0-7.3) H 05/21/19 04:46 Eos % (Auto) 5.3 % (0.0-4.3) H 05/21/19 04:46 Baso % (Auto) 0.7 % (0.0-1.8) 05/21/19 04:46 Lymph # 2.4 K/mm3 (1.2-5.4) 05/21/19 04:46 [place] # 0.6 K/mm3 (0.0-0.8) 05/21/19 04:46 Eos # 0.4 K/mm3 (0.0-0.4) 05/21/19 04:46 Baso # 0.0 K/mm3 (0.0-0.1) 05/21/19 04:46 Seg Neutrophils % 48.5 % (40.0-70.0) 05/21/19 04:46 Seg Neutrophils # 3.2 K/mm3 (1.8-7.7) 05/21/19 04:46 PT 12.5 Sec. (12.2-14.9) 05/20/19 12:24 INR 0.96 (0.87-1.13) 05/20/19 12:24 Sodium 143 mmol/L (137-145) 05/21/19 04:46 Potassium 4.5 mmol/L (3.6-5.0) 05/21/19 04:46 Chloride 103.2 mmol/L (98-107) 05/21/19 04:46 Carbon Dioxide 29 mmol/L (22-30) 05/21/19 04:46 15 mmol/L 05/21/19 04:46 BUN 19 mg/dL (7-17) H 05/21/19 04:46 0.9 mg/dL (0.7-1.2) 05/21/19 04:46 Estimated GFR > 60 ml/min 05/21/19 04:46 21 % 05/21/19 04:46 Glucose 108 mg/dL (65-100) H 05/21/19 04:46 POC Glucose 98 (70-105) 05/22/19 07:24 5.9 % (4-6) 05/20/19 22:36 Calcium 8.4 mg/dL (8.4-10.2) 05/21/19 04:46 Magnesium 1.90 mg/dL (1.7-2.3) 05/20/19 12:24 0.20 mg/dL (0.1-1.2) 05/21/19 04:46 AST 12 units/L (5-40) 05/21/19 04:46 ALT 14 units/L (7-56) 05/21/19 04:46 114 units/L (35-129) 05/21/19 04:46 117 units/L (30-135) 05/20/19 12:24 < 0.010 ng/mL (0.00-0.029) 05/21/19 04:46 6.9 g/dL (6.3-8.2) 05/21/19 04:46 3.6 g/dL (3.9-5) L 05/21/19 04:46 1.1 % 05/21/19 04:46 Active Medications - Current Medications Current Medications: Generic Name Dose Route Start Last Admin Trade Name Freq PRN Reason Stop Dose Admin Acetaminophen 650 mg 05/20/19 21:49 Tylenol PO Q4H PRN Pain MILD(1-3)/Fever >100.5/JARA Albuterol 2.5 mg 05/20/19 22:44 Proventil IH Q4HRT PRN Shortness Of Breath Arformoterol Tartrate 15 mcg 05/21/19 08:00 05/22/19 08:11 Brovana Nebu IH 15 mcg Q12HRT [facility] Administration Aspirin 81 mg 05/21/19 18:00 05/21/19 17:35 Baby Aspirin PO 81 mg QPM [facility] Administration Budesonide 1 mg 05/21/19 08:00 05/22/19 08:11 Pulmicort IH 1 mg Q12HRT [facility] Administration Bumetanide 2 mg 05/21/19 10:00 05/21/19 13:28 Bumex PO 2 mg QDAY [facility] Administration Cyclobenzaprine HCl 10 mg 05/20/19 21:47 Flexeril PO TID PRN Muscle Spasm Duloxetine HCl 60 mg 05/21/19 10:00 05/21/19 13:29 Cymbalta PO 60 mg QDAY [facility] Administration Famotidine 20 mg 05/20/19 22:00 05/21/19 21:37 Pepcid PO 20 mg BID [facility] Administration Fluticasone Propionate 50 mcg 05/20/19 22:00 05/21/19 13:31 Flonase NS 50 mcg QDAY [facility] Administration Gabapentin 900 mg 05/20/19 22:00 05/21/19 21:38 Neurontin PO 900 mg TID [facility] Administration Heparin Sodium (Porcine) 5,000 unit 05/21/19 22:00 05/22/19 06:05 Heparin SUB-Q 5,000 unit Q8HR [facility] Administration Hydromorphone HCl 0.5 mg 05/20/19 21:49 Dilaudid IV Q3H PRN Pain , Severe (7-10) Insulin Human Lispro 0 unit 05/20/19 22:00 05/22/19 00:50 Humalog SUB-Q Not Given [facility] Protocol Lisinopril 10 mg 05/20/19 22:00 05/21/19 13:29 Zestril PO 10 mg QDAY [facility] Administration Loratadine 10 mg 05/21/19 10:00 05/21/19 13:28 Claritin PO 10 mg DAILY [facility] Administration Meloxicam 7.5 mg 05/20/19 22:00 05/21/19 21:37 Mobic PO 7.5 mg BID [facility] Administration Metformin HCl 500 mg 05/20/19 22:00 05/21/19 18:04 Glucophage PO Not Given [facility] Metoclopramide HCl 10 mg 05/20/19 21:49 Reglan IV Q6H PRN Nausea And Vomiting Nitroglycerin 0.4 mg 05/20/19 12:18 05/21/19 15:45 Nitrostat SL 0.4 mg .Q5MIN PRN Administration Chest Pain Ondansetron HCl 4 mg 05/20/19 21:49 Zofran IV Q8H PRN Nausea And Vomiting Oxycodone/Acetaminophen 1 tab 05/20/19 21:49 05/20/19 22:30 Percocet 5/325 PO 1 tab Q6H PRN Administration Pain, Moderate (4-6) Pravastatin Sodium 20 mg 05/20/19 22:00 05/21/19 21:37 Pravachol PO 20 mg QHS [facility] Administration Sodium Chloride 10 ml 05/20/19 22:00 05/21/19 21:37 Sodium Chloride Flush Syringe 10 Ml IV 10 ml BID [facility] Administration Sodium Chloride 10 ml 05/20/19 21:49 Sodium Chloride Flush Syringe 10 Ml IV PRN PRN LINE FLUSH
[2019-05-22] MEDS: FLONASE NS SCH (09:25)
[2019-05-22] MEDS: NEURONTIN PO SCH ×3 (09:26→21:32)
[2019-05-22] MEDS: ZESTRIL PO SCH (09:27)
[2019-05-22] MEDS: PEPCID PO SCH ×2 (09:27→21:33)
[2019-05-22] MEDS: CYMBALTA PO SCH (09:27)
[2019-05-22] MEDS: CLARITIN PO SCH (09:28)
[2019-05-22] MEDS: GLUCOPHAGE PO SCH ×2 (09:28→16:52)
[2019-05-22] MEDS: MOBIC PO SCH ×2 (09:28→21:33)
[2019-05-22] MEDS: SODIUM CHLORIDE FLUSH SYRINGE 10 ML IV SCH ×2 (09:29→21:39)
[2019-05-22 10:30] LABS: BUN/Creatinine Ratio 23; Blood Urea Nitrogen 21 mg/dL (7-17); Calcium 8.9 mg/dL (8.4-10.2); Hemolysis Index 0
--- NOTE | 2019-05-22 12:11 | Progress Note ---
Assessment and Plan Cath in am. Due to boderline BPs, will hold Bumex which she was using at 2 mg daily for leg edema at home. Will not add beta rebeca at this time due to BP. - Patient Problems (1) Chest pain Current Visit: Yes Status: Acute (2) Abnormal nuclear stress test Current Visit: Yes Status: Acute (3) Hypertension Current Visit: Yes Status: Chronic Qualifiers: Hypertension type: essential hypertension Qualified Code(s): I10 - Essential (primary) hypertension (4) Asthma Current Visit: Yes Status: Chronic Qualifiers: Asthma complication type: unspecified (5) Type 2 diabetes mellitus Current Visit: Yes Status: Chronic (6) Chronic pain syndrome Current Visit: Yes Status: Chronic (7) Morbid obesity Current Visit: Yes Status: Chronic (8) Seizure disorder Current Visit: Yes Status: Chronic Subjective Date of service: 05/22/19 Principal diagnosis: CP, abnormal stress test, HTN, Asthma, DM Interval history: No CP overnight. Boderline BPs. Objective Vital Signs Temp Pulse Pulse Resp Resp BP Pulse Ox 05/22/19 09:27 74 05/22/19 09:00 66 05/22/19 07:20 98.0 F 18 104/48 05/22/19 04:31 98.4 F 62 18 93/48 91 05/22/19 01:00 84 05/22/19 00:53 98.3 F 67 18 102/46 93 05/21/19 23:54 69 18 94 05/21/19 20:12 69 18 05/21/19 19:36 98.0 F 66 18 107/52 96 05/21/19 17:03 98.3 F 78 18 104/63 90 05/21/19 15:45 75 103/57 05/21/19 15:36 77 117/39 05/21/19 13:29 72 123/52 05/21/19 13:00 68 123/52 96 - Physical Examination General: No Apparent Distress HEENT: Positive: EOMI, Normocephaly, Mucus Membranes Moist Neck: Positive: neck supple, trachea midline Cardiac: Positive: Reg Rate and Rhythm Lungs: Positive: clear to auscultation Neuro: Positive: Grossly Intact Abdomen: Positive: Soft, Active Bowel Sounds. Negative: Tender Skin: Positive: Clear. Negative: Rash Musculoskeletal: Normal Range of Motion Extremities: Present: normal. Absent: edema - Labs and Meds Comprehensive Metabolic Panel 05/22/19 Range/Units 09:48 Sodium 139 (137-145) mmol/L Potassium 3.8 (3.6-5.0) mmol/L Chloride 96.1 L (98-107) mmol/L Carbon Dioxide 29 (22-30) mmol/L BUN 21 H (7-17) mg/dL Creatinine 0.9 (0.7-1.2) mg/dL Glucose 154 H (65-100) mg/dL Calcium 8.9 (8.4-10.2) mg/dL - Imaging and Cardiology EKG: image reviewed - Telemetry EKG Rhythm: Sinus Rhythm
--- NOTE | 2019-05-22 13:11 | Treadmill Report ---
THALLIUM REPORT REASON FOR STUDY: Chest pain. IMAGING PROTOCOL: The patient received 10 mCi of technetium-99m Tetrofosmin for rest imaging, and 28 mCi of technetium-99m Tetrofosmin for stress imaging. Imaging for all procedures was completed 30-90 minutes following the initial injection of Technetium 99m Tetrofosmin. SPECT imaging in the 180 degree arc was performed in the right anterior oblique projection. Computerized reconstruction of the images was performed for analysis. NUCLEAR IMAGING RESULTS: Normal left ventricular cavity size with no change from stress to rest. Distribution of radionuclide within the left ventricle revealed a small area of photo-induction involving the apex. The degree of photo-induction is mild. Rest imaging showed complete improvement in this defect. There is also a small area of photo-induction involving the anteroseptal region. The degree of photo-induction is moderate. Rest imaging showed almost complete improvement in this defect. In addition, there is a small area of photo-induction involving the basal inferior wall. The degree of photo-induction is mild. Rest imaging showed partial improvement in this defect. Gated SPECT imaging revealed normal global LV systolic function with no significant wall motion abnormalities. The calculated left ventricular ejection fraction is 64%. IMPRESSION: Small reversible apical and anteroseptal defect. Small, partially reversible inferobasal defect. Normal global LV systolic function with no significant wall motion abnormalities. EF 64%. These findings suggest mild reversible ischemia in the left anterior descending coronary artery territory. In addition, there is suggestion of a small area of prior infarction with minimal residual ischemia in the right coronary artery territory. [facility]# [id number] LAURITA/NTS
[2019-05-22] MEDS: BABY ASPIRIN PO SCH (17:12)
[2019-05-22] MEDS: PRAVACHOL PO SCH (21:35)
[2019-05-23] MEDS: HEPARIN SUB-Q SCH ×3 (05:20→21:48)
[2019-05-23 06:37] LABS: INR 0.94 (0.87-1.13)
[2019-05-23 06:39] LABS: Partial Thromboplastin Time 30.3 Sec. (24.2-36.6)
[2019-05-23 06:49] LABS: BUN/Creatinine Ratio 24; Blood Urea Nitrogen 19 mg/dL (7-17); Calcium 8.9 mg/dL (8.4-10.2); Hemolysis Index 1
[2019-05-23] MEDS: GLUCOPHAGE PO SCH ×3 (07:35→18:47)
[2019-05-23] MEDS: HumaLOG SUB-Q SCH ×4 (07:35→21:49)
[2019-05-23] MEDS: NEURONTIN PO SCH ×4 (07:35→21:47)
[2019-05-23] MEDS: BROVANA NEBU IH SCH ×2 (07:47→21:58)
[2019-05-23] MEDS: PULMICORT IH SCH ×2 (07:47→21:58)
[2019-05-23] MEDS: CLARITIN PO SCH (11:22)
[2019-05-23] MEDS: CYMBALTA PO SCH (11:22)
[2019-05-23] MEDS: ZESTRIL PO SCH (11:23)
[2019-05-23] MEDS: FLONASE NS SCH (11:23)
[2019-05-23] MEDS: MOBIC PO SCH ×2 (11:23→21:46)
[2019-05-23] MEDS: PEPCID PO SCH ×2 (11:23→21:47)
--- NOTE | 2019-05-23 13:50 | Progress Note ---
Assessment and Plan For [facility] in AM, NPO after MN. Due to boderline BPs, will hold Bumex which she was using at 2 mg daily for leg edema at home. Will not add beta rebeca at this time due to BP. The patient has been seen in conjunction with Dr. Woods who agrees with the assessment and plan of care. - Patient Problems (1) Chest pain Current Visit: Yes Status: Acute (2) Abnormal nuclear stress test Current Visit: Yes Status: Acute (3) Hypertension Current Visit: Yes Status: Chronic Qualifiers: Hypertension type: essential hypertension Qualified Code(s): I10 - Essential (primary) hypertension (4) Asthma Current Visit: Yes Status: Chronic Qualifiers: Asthma complication type: unspecified (5) Type 2 diabetes mellitus Current Visit: Yes Status: Chronic (6) Chronic pain syndrome Current Visit: Yes Status: Chronic (7) Morbid obesity Current Visit: Yes Status: Chronic (8) Seizure disorder Current Visit: Yes Status: Chronic Subjective Date of service: 05/23/19 Principal diagnosis: CP, abnormal stress test, HTN, Asthma, DM Interval history: pt resting in bed, no current complaints. in SR on tele, no acute events noted overnight. Objective Last Vital Signs Temp 98.4 F 05/23/19 07:25 Pulse 66 05/23/19 07:47 Resp 20 05/23/19 10:44 BP 111/50 05/23/19 07:25 Pulse Ox 94 05/23/19 07:25 - Physical Examination General: No Apparent Distress HEENT: Positive: EOMI, Normocephaly, Mucus Membranes Moist Neck: Positive: neck supple, trachea midline Cardiac: Positive: Reg Rate and Rhythm, S1/S2 Lungs: Positive: Decreased Breath Sounds Neuro: Positive: Grossly Intact Abdomen: Positive: Soft, Active Bowel Sounds. Negative: Tender Skin: Positive: Clear. Negative: Rash Musculoskeletal: Normal Range of Motion Extremities: Present: normal. Absent: edema - Labs and Meds Coagulation 05/23/19 Range/Units 04:58 PT 12.3 (12.2-14.9) Sec. INR 0.94 (0.87-1.13) APTT 30.3 (24.2-36.6) Sec. Comprehensive Metabolic Panel 05/23/19 Range/Units 04:58 Sodium 143 (137-145) mmol/L Potassium 4.2 (3.6-5.0) mmol/L Chloride 102.1 (98-107) mmol/L Carbon Dioxide 29 (22-30) mmol/L BUN 19 H (7-17) mg/dL Creatinine 0.8 (0.7-1.2) mg/dL Glucose 100 (65-100) mg/dL Calcium 8.9 (8.4-10.2) mg/dL - Imaging and Cardiology EKG: image reviewed
--- NOTE | 2019-05-23 14:27 | Progress Note ---
Assessment and Plan Assessment and plan: Chest pain had abnormal stress test. Patient evaluated by cardiology For cardiac cath Thursday 05/24 Nitro prn Cont Aspirin Beta blockers Hypertension BP stable Diabetes mellitus type 2 Accucheck qac and hs Morbid obesity I counseled her on diet and exercise Asthnma, stable Seizure disorder seizure precautions Full code status History Interval history: Chest pain, resolved No shortness of breath Hospitalist Physical - Physical exam Narrative exam: Gen: Not in acute distress, lying in bed, morbidly obese HEENT: Normocephalic, atraumatic Neck: supple, no JVD Heart: S1 and S2 reg, no murmurs, rubs or gallop Lungs: Clear, no crackles, no wheeze Abd: soft, non tender, non distended, normal BS Ext: No edema, no clubbing, no cyanosis Neuro:awake,alert, Oriented X 3. No focal signs - Constitutional Vitals: Temp Pulse Resp BP Pulse Ox 98.4 F 66 20 111/50 94 05/23/19 07:25 05/23/19 07:47 05/23/19 10:44 05/23/19 07:25 05/23/19 07:25 General appearance: Present: no acute distress Results - Labs CBC & Chem 7: 05/21/19 04:46 05/23/19 04:58 Labs: Laboratory Last Values WBC 6.6 K/mm3 (4.5-11.0) 05/21/19 04:46 RBC 4.08 M/mm3 (3.65-5.03) 05/21/19 04:46 Hgb 12.6 gm/dl (10.1-14.3) 05/21/19 04:46 Hct 37.6 % (30.3-42.9) 05/21/19 04:46 MCV 92 fl (79-97) 05/21/19 04:46 MCH 31 pg (28-32) 05/21/19 04:46 MCHC 34 % (30-34) 05/21/19 04:46 RDW 13.6 % (13.2-15.2) 05/21/19 04:46 Plt Count 253 K/mm3 (140-440) 05/21/19 04:46 Lymph % (Auto) 36.4 % (13.4-35.0) H 05/21/19 04:46 [place] % (Auto) 9.1 % (0.0-7.3) H 05/21/19 04:46 Eos % (Auto) 5.3 % (0.0-4.3) H 05/21/19 04:46 Baso % (Auto) 0.7 % (0.0-1.8) 05/21/19 04:46 Lymph # 2.4 K/mm3 (1.2-5.4) 05/21/19 04:46 [place] # 0.6 K/mm3 (0.0-0.8) 05/21/19 04:46 Eos # 0.4 K/mm3 (0.0-0.4) 05/21/19 04:46 Baso # 0.0 K/mm3 (0.0-0.1) 05/21/19 04:46 Seg Neutrophils % 48.5 % (40.0-70.0) 05/21/19 04:46 Seg Neutrophils # 3.2 K/mm3 (1.8-7.7) 05/21/19 04:46 PT 12.3 Sec. (12.2-14.9) 05/23/19 04:58 INR 0.94 (0.87-1.13) 05/23/19 04:58 APTT 30.3 Sec. (24.2-36.6) 05/23/19 04:58 Sodium 143 mmol/L (137-145) 05/23/19 04:58 Potassium 4.2 mmol/L (3.6-5.0) 05/23/19 04:58 Chloride 102.1 mmol/L (98-107) 05/23/19 04:58 Carbon Dioxide 29 mmol/L (22-30) 05/23/19 04:58 16 mmol/L 05/23/19 04:58 BUN 19 mg/dL (7-17) H 05/23/19 04:58 0.8 mg/dL (0.7-1.2) 05/23/19 04:58 Estimated GFR > 60 ml/min 05/23/19 04:58 24 % 05/23/19 04:58 Glucose 100 mg/dL (65-100) 05/23/19 04:58 POC Glucose 152 (70-105) H 05/23/19 12:19 5.9 % (4-6) 05/20/19 22:36 Calcium 8.9 mg/dL (8.4-10.2) 05/23/19 04:58 Magnesium 1.90 mg/dL (1.7-2.3) 05/20/19 12:24 0.20 mg/dL (0.1-1.2) 05/21/19 04:46 AST 12 units/L (5-40) 05/21/19 04:46 ALT 14 units/L (7-56) 05/21/19 04:46 114 units/L (35-129) 05/21/19 04:46 117 units/L (30-135) 05/20/19 12:24 < 0.010 ng/mL (0.00-0.029) 05/21/19 04:46 6.9 g/dL (6.3-8.2) 05/21/19 04:46 3.6 g/dL (3.9-5) L 05/21/19 04:46 1.1 % 05/21/19 04:46 Active Medications - Current Medications Current Medications: Generic Name Dose Route Start Last Admin Trade Name Freq PRN Reason Stop Dose Admin Acetaminophen 650 mg 05/20/19 21:49 Tylenol PO Q4H PRN Pain MILD(1-3)/Fever >100.5/JARA Albuterol 2.5 mg 05/20/19 22:44 Proventil IH Q4HRT PRN Shortness Of Breath Arformoterol Tartrate 15 mcg 05/21/19 08:00 05/23/19 07:47 Brovana Nebu IH 15 mcg Q12HRT CORNELIUS Administration Aspirin 81 mg 05/21/19 18:00 05/22/19 17:12 Baby Aspirin PO 81 mg QPM CORNELIUS Administration Budesonide 0.5 mg 05/22/19 18:01 05/23/19 07:47 Pulmicort IH 0.5 mg Q12HRT CORNELIUS Administration Cyclobenzaprine HCl 10 mg 05/20/19 21:47 Flexeril PO TID PRN Muscle Spasm Duloxetine HCl 60 mg 05/21/19 10:00 05/23/19 11:22 Cymbalta PO 60 mg QDAY CORNELIUS Administration Famotidine 20 mg 05/20/19 22:00 05/23/19 11:23 Pepcid PO 20 mg BID CORNELIUS Administration Fluticasone Propionate 50 mcg 05/20/19 22:00 05/23/19 11:23 Flonase NS 50 mcg QDAY CORNELIUS Administration Gabapentin 900 mg 05/20/19 22:00 05/23/19 11:27 Neurontin PO 900 mg TID CORNELIUS Administration Heparin Sodium (Porcine) 5,000 unit 05/21/19 22:00 05/23/19 05:20 Heparin SUB-Q 5,000 unit Q8HR CORNELIUS Administration Hydromorphone HCl 0.5 mg 05/20/19 21:49 05/23/19 10:44 Dilaudid IV 0.5 mg Q3H PRN Administration Pain , Severe (7-10) Insulin Human Lispro 0 unit 05/20/19 22:00 05/23/19 07:35 Humalog SUB-Q Not Given ACHS [facility] Protocol Lisinopril 5 mg 05/23/19 10:00 05/23/19 11:23 Zestril PO 5 mg QDAY CORNELIUS Administration Loratadine 10 mg 05/21/19 10:00 05/23/19 11:22 Claritin PO 10 mg DAILY CORNELIUS Administration Meloxicam 7.5 mg 05/20/19 22:00 05/23/19 11:23 Mobic PO 7.5 mg BID CORNELIUS Administration Metformin HCl 500 mg 05/20/19 22:00 05/23/19 11:22 Glucophage PO 500 mg BIDDIAB CORNELIUS Administration Metoclopramide HCl 10 mg 05/20/19 21:49 Reglan IV Q6H PRN Nausea And Vomiting Nitroglycerin 0.4 mg 05/20/19 12:18 05/21/19 15:45 Nitrostat SL 0.4 mg .Q5MIN PRN Administration Chest Pain Ondansetron HCl 4 mg 05/20/19 21:49 Zofran IV Q8H PRN Nausea And Vomiting Oxycodone/Acetaminophen 1 tab 05/20/19 21:49 05/20/19 22:30 Percocet 5/325 PO 1 tab Q6H PRN Administration Pain, Moderate (4-6) Pravastatin Sodium 20 mg 05/20/19 22:00 05/22/19 21:35 Pravachol PO 20 mg QHS CORNELIUS Administration Sodium Chloride 10 ml 05/20/19 22:00 05/22/19 21:39 Sodium Chloride Flush Syringe 10 Ml IV 10 ml BID CORNELIUS Administration Sodium Chloride 10 ml 05/20/19 21:49 Sodium Chloride Flush Syringe 10 Ml IV PRN PRN LINE FLUSH
[2019-05-23] MEDS: BABY ASPIRIN PO SCH (19:48)
[2019-05-23] MEDS: PRAVACHOL PO SCH (21:47)
[2019-05-23] MEDS: SODIUM CHLORIDE FLUSH SYRINGE 10 ML IV SCH (21:48)
[2019-05-24 05:36] LABS: Hematocrit 40.9 % (30.3-42.9); Hemoglobin 13.5 gm/dl (10.1-14.3); Mean Corpuscular HGB Conc 33 % (30-34); Mean Corpuscular Hemoglobin 31 pg (28-32); Mean Corpuscular Volume 92 fl (79-97); Platelet Count 277 K/mm3 (140-440); Red Blood Count 4.44 M/mm3 (3.65-5.03); Red Cell Distribution Width 13.8 % (13.2-15.2)
[2019-05-24 05:45] LABS: BUN/Creatinine Ratio 26; Blood Urea Nitrogen 18 mg/dL (7-17); Calcium 8.7 mg/dL (8.4-10.2); Hemolysis Index 14
[2019-05-24 05:50] LABS: INR 0.95 (0.87-1.13)
[2019-05-24] MEDS: HEPARIN SUB-Q SCH ×2 (05:57→15:00)
[2019-05-24] MEDS ORDERED: NACL 0.9% 500 ML 500 ML IV SCH (07:00)
[2019-05-24] MEDS: NEURONTIN PO SCH ×2 (08:00→14:47)
[2019-05-24] MEDS: HumaLOG SUB-Q SCH ×2 (08:00→13:00)
[2019-05-24] MEDS: GLUCOPHAGE PO SCH (08:00)
[2019-05-24] MEDS: PULMICORT IH SCH (08:28)
[2019-05-24] MEDS: BROVANA NEBU IH SCH (08:28)
[2019-05-24] MEDS ORDERED: HEPARIN/NS 5000 UNIT/500ML(CATH LAB) 1,000 ML IR ONE (10:24)
[2019-05-24] MEDS ORDERED: HEPARIN 10,000 UNITS/10 ML ONE (10:25)
[2019-05-24] MEDS ORDERED: XYLOCAINE 2% INFILTRATI ONE (10:25)
[2019-05-24] MEDS ORDERED: CALAN ONE (10:25)
[2019-05-24] MEDS ORDERED: NITROGLYCERIN SYRINGE 0 ML ONE (10:25)
[2019-05-24] MEDS ORDERED: NACL 0.9% 500 ML 500 ML ONE (10:48)
[2019-05-24] MEDS ORDERED: ECOTRIN PO ONE ×2 (10:57→11:00)
[2019-05-24] MEDS ORDERED: HALFPRIN EC PO ONE (11:02)
[2019-05-24] MEDS ORDERED: SUBLIMAZE ONE (11:46)
[2019-05-24] MEDS ORDERED: VERSED ONE (11:46)
--- NOTE | 2019-05-24 13:12 | Progress Note ---
Assessment and Plan S/p LHC this AM which showed normal coronaries. Currently stable cardiac status. Pt may discharge home from cardiology standpoint following completion of post- cath order set. At discharge, pt may resume her home Bumex at decreased dosage of 1mg daily for leg edema. Recommend follow up in our office with Dr. Chicas within 1-2 weeks of hospital discharge ([phone]). The patient has been seen in conjunction with Dr. Woods who agrees with the assessment and plan of care. - Patient Problems (1) Chest pain Current Visit: Yes Status: Resolved (2) Abnormal nuclear stress test Current Visit: Yes Status: Acute (3) Hypertension Current Visit: Yes Status: Chronic Qualifiers: Hypertension type: essential hypertension Qualified Code(s): I10 - Essential (primary) hypertension (4) Asthma Current Visit: Yes Status: Chronic Qualifiers: Asthma complication type: unspecified (5) Type 2 diabetes mellitus Current Visit: Yes Status: Chronic (6) Chronic pain syndrome Current Visit: Yes Status: Chronic (7) Morbid obesity Current Visit: Yes Status: Chronic (8) Seizure disorder Current Visit: Yes Status: Chronic Subjective Date of service: 05/24/19 Principal diagnosis: CP, abnormal stress test, HTN, Asthma, DM Interval history: pt for [facility], no current complaints. in SR on tele, no acute events noted overnight. Objective Last Vital Signs Temp 98.2 F 05/24/19 08:14 Pulse 87 05/24/19 12:00 Resp 16 05/24/19 08:14 BP 116/48 05/24/19 08:14 Pulse Ox 96 05/24/19 08:14 - Physical Examination General: No Apparent Distress HEENT: Positive: EOMI, Normocephaly, Mucus Membranes Moist Neck: Positive: neck supple, trachea midline Cardiac: Positive: Reg Rate and Rhythm, S1/S2 Lungs: Positive: clear to auscultation Neuro: Positive: Grossly Intact Abdomen: Positive: Soft, Active Bowel Sounds. Negative: Tender Skin: Positive: Clear. Negative: Rash Musculoskeletal: Normal Range of Motion Extremities: Present: normal. Absent: edema - Labs and Meds Coagulation 05/24/19 Range/Units 04:33 PT 12.4 (12.2-14.9) Sec. INR 0.95 (0.87-1.13) CBC 05/24/19 Range/Units 04:33 WBC 5.2 (4.5-11.0) K/mm3 RBC 4.44 (3.65-5.03) M/mm3 Hgb 13.5 (10.1-14.3) gm/dl Hct 40.9 (30.3-42.9) % Plt Count 277 (140-440) K/mm3 Comprehensive Metabolic Panel 05/24/19 Range/Units 04:33 Sodium 142 (137-145) mmol/L Potassium 4.5 (3.6-5.0) mmol/L Chloride 104.7 (98-107) mmol/L Carbon Dioxide 28 (22-30) mmol/L BUN 18 H (7-17) mg/dL Creatinine 0.7 (0.7-1.2) mg/dL Glucose 109 H (65-100) mg/dL Calcium 8.7 (8.4-10.2) mg/dL - Imaging and Cardiology EKG: image reviewed
--- NOTE | 2019-05-24 13:28 | Discharge Summary ---
Providers - Providers Date of Admission: 05/23/19 12:14 Date of discharge: 05/24/19 Attending physician: ANDREAS GRAVES 05/21/19 13:48 Consult to Physician [CONS] Routine Comment: Consulting Provider: MIGUEL HAM Physician Instructions: Reason For Exam: Abnormal stress test 05/21/19 13:52 Consult to Cardiology [CONS] Routine Consulting Provider: MIGUEL HAM Reason For Exam: abnormal stress test [facility] Condition: Stable Pertinent studies: Abnormal stress tests. Left heart catheterization showed normal coronaries. Hospital course: Patient presented with atypical chest pain. History of hypertension diabetes multiple risk factors asthma seizure disorder. Presented with atypical chest pain that initial cardiac workup found to have abnormal stress test. Patient had cardiac catheterization completely normal coronaries. Chest pain appeared to be from chronic pain syndrome and asthma. Patient chest pain resolved shortly after being admitted. Disposition: TO HOME OR SELFCARE - Discharge Diagnoses (1) Abnormal nuclear stress test Status: Acute (2) Chest pain Status: Acute (3) Shortness of breath Status: Acute (4) Asthma Status: Chronic Qualifiers: Asthma complication type: unspecified (5) Chronic pain syndrome Status: Chronic (6) Depression Status: Chronic Qualifiers: Depression Type: unspecified Qualified Code(s): F32.9 - Major depressive disorder, single episode, unspecified (7) Hypertension Status: Chronic Qualifiers: Hypertension type: essential hypertension Qualified Code(s): I10 - Essential (primary) hypertension (8) Morbid obesity Status: Chronic (9) Seizure disorder Status: Chronic Core Measure Documentation - Palliative Care Palliative Care/ Comfort Measures: Not Applicable - Core Measures Any of the following diagnoses?: none Exam - Constitutional Vitals: Temp Pulse Resp BP Pulse Ox 98.2 F 87 16 116/48 96 05/24/19 08:14 05/24/19 12:00 05/24/19 08:14 05/24/19 08:14 05/24/19 08:14 General appearance: Present: no acute distress, well-nourished - EENT Eyes: Present: PERRL ENT: hearing intact, clear oral mucosa - Neck Neck: Present: supple, normal ROM - Respiratory Respiratory effort: normal Respiratory: bilateral: CTA - Cardiovascular Heart Sounds: Present: S1 & S2. Absent: rub, click - Extremities Extremities: pulses symmetrical, No edema Peripheral Pulses: within normal limits - Abdominal General gastrointestinal: Present: soft, non-tender, non-distended, normal bowel sounds Female genitourinary: Present: normal - Integumentary Integumentary: Present: clear, warm, dry - Musculoskeletal Musculoskeletal: gait normal, strength equal bilaterally - Psychiatric Psychiatric: appropriate mood/affect, intact judgment & insight - Neurologic Neurologic: CNII-XII intact, moves all extremities Plan Activity: advance as tolerated Weight Bearing Status: Full Weight Bearing Diet: low fat, low cholesterol, low salt Special Instructions: record daily BP diary [facility] [Primary Care Provider] - 3-5 Days Prescriptions: Aspirin [Aspirin BABY CHEW TAB] 81 mg PO QPM #30 tab.chew Bumetanide [Bumetanide 2 mg tab] 1 mg PO DAILY #30 tablet metFORMIN [Glucophage] 500 mg PO BIDWM #60 tablet Gabapentin [Neurontin] 900 mg PO TID #90 capsule HYDROcodone/APAP 10-325 [[place] 10-325 mg TAB] 1 each PO 5XD PRN #20 tablet PRN Reason: Pain Pravastatin [Pravachol] 20 mg PO QHS #30 tablet
--- NOTE | 2019-05-24 14:13 | Cardiac Catherization Report ---
CARDIAC CATHETERIZATION REPORT INDICATION FOR PROCEDURE: The patient is a 53-year-old female with complaints of chest pain, abnormal stress nuclear imaging and was scheduled for cardiac catheterization for definitive diagnosis and treatment. The patient is aware of the procedure, potential complications and alternatives of therapy available. DESCRIPTION OF PROCEDURE: The patient was brought to the catheterization laboratory in a fasting condition. The right wrist area and forearm were thoroughly cleansed with Betadine solution. The patient was evaluated for moderate sedation and was found to be appropriate candidate. The patient received IV Versed and fentanyl. Subsequently, local anesthesia was given in the right wrist area and right radial artery puncture was made using 21-gauge arterial puncture needle. Subsequently, using 5-[place] multipurpose catheter, angiograms of the left coronary artery in multiple views, right coronary artery in multiple views and left ventriculogram done in NOVAK projection using hand injection. At the end of the procedure, catheter and sheath were removed. The patient was monitored throughout the procedure with hemodynamic monitoring, pulse oximetry, and EKG monitoring. The patient tolerated the sedation well. Sedation started at 12:00 noon and ended at 12:20 noon time. No untoward complications noted. Sheath was removed from the right radial artery and radial band was applied and good hemostasis was achieved. No untoward complications were noted. At the end of the procedure, the patient is communicating normally, moving all the extremities and breathing normally. The patient was transferred to the room in stable condition. Following findings were noted. HEMODYNAMICS: 1. Opening aortic pressure 146/83, left ventricular pressure 146/19. No gradient across the aortic valve. Estimated ejection fraction 55%. 2. Left ventriculogram done in NOVAK projection using hand injection showed normal size left ventricle with normal contractility. The mitral regurgitation could not be evaluated because of limited amount of dye used. 3. Left coronary artery arises normally from left coronary cusp. Left main, LAD and its branches, LAD curves around the apex. Circumflex artery and its branch are angiographically smooth and normal. 4. Right coronary artery arises normally from right coronary cusp, dominant vessel, angiographically smooth and normal. FINAL IMPRESSION: 1. Normal sized left ventricle with normal contractility. 2. Angiographically normal coronary anatomy. 3. Right radial artery was used for access. 4. The patient tolerated the moderate sedation well without any side effects. The patient will be continued on risk factor modification. Findings were explained to the patient and . They understand. JOB# [id number] SANDI/NTS
[2019-05-24] MEDS: SODIUM CHLORIDE FLUSH SYRINGE 10 ML IV SCH (14:44)
[2019-05-24] MEDS: PERCOCET 5/325 PO PRN (14:47)
[2019-05-24] MEDS: ZESTRIL PO SCH (14:51)
[2019-05-24] MEDS: PEPCID PO SCH (14:52)
[2019-05-24] MEDS: MOBIC PO SCH (14:59)
[2019-05-24] MEDS: CLARITIN PO SCH (15:00)
[2019-05-24] MEDS: CYMBALTA PO SCH (15:02)
[2019-05-24] MEDS: FLONASE NS SCH (15:07)
[2019-05-24 16:50] VITALS: BP 110/50
== END 2019-05-24 18:35 | disposition home or self-care (01) | DRG 287 ==
LOC: ED 10:53 → 4A 13:13 → OBSVTOIN 05-23 12:14
PROVIDERS: ADMIT Internal Medicine; ATTEND Internal Medicine
PROC: 5A09357 Assistance with Respiratory Ventilation, Less than 24 Consecutive Hours, Continuous Positive Airway Pressure (ICD-10-PCS; 2019-05-20)
PROC: 5A09357 Assistance with Respiratory Ventilation, Less than 24 Consecutive Hours, Continuous Positive Airway Pressure (ICD-10-PCS; 2019-05-21)
PROC: 5A09357 Assistance with Respiratory Ventilation, Less than 24 Consecutive Hours, Continuous Positive Airway Pressure (ICD-10-PCS; 2019-05-23)
PROC: 4A023N7 Measurement of Cardiac Sampling and Pressure, Left Heart, Percutaneous Approach (ICD-10-PCS; principal; 2019-05-24)
PROC: B2111ZZ Fluoroscopy of Multiple Coronary Arteries using Low Osmolar Contrast (ICD-10-PCS; 2019-05-24)
PROC: B2151ZZ Fluoroscopy of Left Heart using Low Osmolar Contrast (ICD-10-PCS; 2019-05-24)
PROC: 5A09357 Assistance with Respiratory Ventilation, Less than 24 Consecutive Hours, Continuous Positive Airway Pressure (ICD-10-PCS; 2019-05-24)
DX: R07.89 Other chest pain (principal); G89.4 Chronic pain syndrome; Z68.41 Body mass index [BMI] 40.0-44.9, adult; E66.01 Morbid (severe) obesity due to excess calories; E78.2 Mixed hyperlipidemia; E11.42 Type 2 diabetes mellitus with diabetic polyneuropathy; K21.0 Gastro-esophageal reflux disease with esophagitis; F32.9 Major depressive disorder, single episode, unspecified; G43.909 Migraine, unspecified, not intractable, without status migrainosus; G40.909 Epilepsy, unspecified, not intractable, without status epilepticus; J45.909 Unspecified asthma, uncomplicated; I10 Essential (primary) hypertension; E78.00 Pure hypercholesterolemia, unspecified; Z79.82 Long term (current) use of aspirin; Z79.899 Other long term (current) drug therapy; Z71.3 Dietary counseling and surveillance; Z79.84 Long term (current) use of oral hypoglycemic drugs; Z88.8 Allergy status to other drugs, medicaments and biological substances; Z91.013 Allergy to seafood; Z90.49 Acquired absence of other specified parts of digestive tract; Z98.51 Tubal ligation status; Z79.51 Long term (current) use of inhaled steroids; Z98.1 Arthrodesis status; Z82.49 Family history of ischemic heart disease and other diseases of the circulatory system
CPT/HCPCS: 36415; 71046; 78452; 80048; 80053; 82550; 82962; 83036; 83735; 84484; 85025; 85027; 85610; 85730; 93005; 93010; 93017; 93458; 94640; 94660; 96374; 96375; G0378; A9270-GY; A9502; C1769; C1894; J1170; J1644; J2250; J2405; J2785; J3010; J7040; Q9967

== ENCOUNTER 2019-07-07 10:14 | Outpatient (CLI) | payer MEDICAID ==
--- NOTE | 2019-07-07 11:38 | XRay Report ---
LEFT CALCANEUS, 2 VIEWS INDICATION: Left heel pain. COMPARISON: None. IMPRESSION: Normal bone mineralization. No evidence for fracture, degenerative changes in the subta lar joint or bone lesion. A large plantar spur is identified measuring 7.3 mm in length. Focal spurri ng at the insertion of the Achilles tendon is also identified. The soft tissues are unremarkable. Signer Name: Jair Cantu Jr, MD Signed: 07/07/2019 11:33 AM Workstation Name: [id number]
== END 2019-07-07 10:15 | disposition home or self-care (01) ==
LOC: XRAY 10:14
PROVIDERS: ATTEND Physical Medicine & Rehabilitation
DX: M19.071 Primary osteoarthritis, right ankle and foot (principal); M77.8 Other enthesopathies, not elsewhere classified; I10 Essential (primary) hypertension; J45.909 Unspecified asthma, uncomplicated

== ENCOUNTER 2019-07-15 15:34 | Emergency (ER) | payer MEDICAID ==
[2019-07-15 15:40] VITALS: BP 160/81
--- NOTE | 2019-07-15 15:40 | Event Note ---
ED Screening Note Date of service: 07/15/19 Time: 15:39 ED Screening Note: This is a 54 y.o. F. that presents to the ER with left heel pain x 1 week. Patient states she went to her doctor last who ordered x-rays and placed on toradol. No improvement of symptoms. Denies injury. This initial assessment/diagnostic orders/clinical plan/treatment(s) is/are subject to change based on patients health status, clinical progression and re- assessment by fellow clinical providers in the ED. Further treatment and workup at subsequent clinical providers discretion. Patient/guardian urged not to elope from the ED as their condition may be serious if not clinically assessed and managed. Initial orders include:
--- NOTE | 2019-07-15 17:30 | Emergency Department Report ---
ED Extremity Problem HPI - General Chief complaint: Extremity Injury, Lower Stated complaint: LFT HEAL PAIN Time Seen by Provider: 07/15/19 15:38 Source: patient Mode of arrival: Ambulatory Limitations: No Limitations - History of Present Illness Initial comments: 54-year-old female presents to the emergency room for left heel pain and swelling times several days. Patient denies any falls or injuries. Patient states that she had x-ray last and was diagnosed with plantar fasciitis. Patient is complaining mostly of heel pain that travels up the Achilles. Patient reports been taken ibuprofen she takes oxycodone 10 mg up to 5 times a day as given to her for her fibromyalgia. Patient states nothing is helping with the pain. She reports that she was recently given Toradol but is not helping as well. Onset/Timin -: week(s) Location: left History of Same: No -: Yes myalgia Radiation: distal Severity scale (0 -10): 10 - Related Data Home Medications Medication Instructions Recorded Confirmed Last Taken raNITIdine HCl [Ranitidine 150mg 150 mg PO BID 01/21/15 05/20/19 05/20/19 Cap] Fluticasone/Salmeterol [Advair 1 each IH BID 10/11/18 05/20/19 05/20/19 500-50 Diskus] Cyclobenzaprine [Flexeril 10 MG 10 mg PO TID PRN 05/20/19 05/20/19 Unknown TAB] Duloxetine HCl [Cymbalta] 60 mg PO QDAY 05/20/19 05/20/19 Unknown Fluticasone [Flonase] 1 spray NS QDAY 05/20/19 05/20/19 Unknown Loratadine [Claritin] 10 mg PO DAILY 05/20/19 05/20/19 Unknown Meloxicam [Mobic] 7.5 mg PO BID 05/20/19 05/20/19 Unknown Previous Rx's Medication Instructions Recorded Last Taken Type Lisinopril [Zestril TAB] 10 mg PO QDAY tablet 07/11/18 05/20/19 Rx ALBUTEROL Inhaler (OR & NICU) 2 puff IH QID PRN #1 inhalation 04/26/19 Unknown Rx [ProAir HFA Inhaler] Aspirin [Aspirin BABY CHEW TAB] 81 mg PO QPM #30 tab.chew 05/24/19 Unknown Rx Budesonide [Pulmicort Respules] 0.5 mg IH Q12HRT nebu 05/24/19 Unknown Rx Bumetanide [Bumetanide 2 mg tab] 1 mg PO DAILY #30 tablet 05/24/19 Unknown Rx Gabapentin [Neurontin] 900 mg PO TID #90 capsule 05/24/19 Unknown Rx HYDROcodone/APAP 10-325 [[place] 1 each PO 5XD PRN #20 tablet 05/24/19 Unknown Rx 10-325 mg TAB] Pravastatin [Pravachol] 20 mg PO QHS #30 tablet 05/24/19 Unknown Rx metFORMIN [Glucophage] 500 mg PO BIDWM #60 tablet 05/24/19 Unknown Rx predniSONE [Deltasone] 40 mg PO QDAY #10 tab 07/15/19 Unknown Rx Allergies Allergy/AdvReac Type Severity Reaction Status Date / Time pregabalin [From Lyrica] Allergy Unknown Verified 07/15/19 15:41 topiramate [From Topamax] Allergy Seizure Verified 07/15/19 15:41 shellfish Allergy Hives Uncoded 04/11/17 14:53 paragoric AdvReac Unknown Uncoded 04/11/17 14:53 ED Review of Systems ROS: Stated complaint: LFT HEAL PAIN Other details as noted in HPI ED Past Medical Hx - Past Medical History Previous Medical History?: Yes Hx Hypertension: Yes Hx Congestive Heart Failure: No Hx Diabetes: Yes Hx GERD: Yes Hx Arthritis: Yes Hx Headaches / Migraines: Yes Hx Seizures: Yes Hx Asthma: Yes Hx COPD: No Hx HIV: No Additional medical history: scoliosis, Nerve problems, pinched nerves, neck problems, back problems., "TIA". FIBROMYALGIA - Surgical History Past Surgical History?: Yes Hx Cholecystectomy: Yes Hx Appendectomy: Yes Additional Surgical History: Tubal ligation. NECK SURGERY 2016 - Social History Smoking Status: Never Smoker Substance Use Type: None - Medications Home Medications: Home Medications Medication Instructions Recorded Confirmed Last Taken Type raNITIdine HCl [Ranitidine 150mg 150 mg PO BID 01/21/15 05/20/19 05/20/19 History Cap] Lisinopril [Zestril TAB] 10 mg PO QDAY tablet 07/11/18 05/20/19 05/20/19 Rx Fluticasone/Salmeterol [Advair 1 each IH BID 10/11/18 05/20/19 05/20/19 History 500-50 Diskus] ALBUTEROL Inhaler (OR & NICU) 2 puff IH QID PRN #1 inhalation 04/26/19 05/20/19 Unknown Rx [ProAir HFA Inhaler] Cyclobenzaprine [Flexeril 10 MG 10 mg PO TID PRN 05/20/19 05/20/19 Unknown History TAB] Duloxetine HCl [Cymbalta] 60 mg PO QDAY 05/20/19 05/20/19 Unknown History Fluticasone [Flonase] 1 spray NS QDAY 05/20/19 05/20/19 Unknown History Loratadine [Claritin] 10 mg PO DAILY 05/20/19 05/20/19 Unknown History Meloxicam [Mobic] 7.5 mg PO BID 05/20/19 05/20/19 Unknown History Aspirin [Aspirin BABY CHEW TAB] 81 mg PO QPM #30 tab.chew 05/24/19 Unknown Rx Budesonide [Pulmicort Respules] 0.5 mg IH Q12HRT nebu 05/24/19 Unknown Rx Bumetanide [Bumetanide 2 mg tab] 1 mg PO DAILY #30 tablet 05/24/19 Unknown Rx Gabapentin [Neurontin] 900 mg PO TID #90 capsule 05/24/19 Unknown Rx HYDROcodone/APAP 10-325 [[place] 1 each PO 5XD PRN #20 tablet 05/24/19 Unknown Rx 10-325 mg TAB] Pravastatin [Pravachol] 20 mg PO QHS #30 tablet 05/24/19 Unknown Rx metFORMIN [Glucophage] 500 mg PO BIDWM #60 tablet 05/24/19 Unknown Rx predniSONE [Deltasone] 40 mg PO QDAY #10 tab 07/15/19 Unknown Rx ED Physical Exam - General Limitations: No Limitations ED Course Vital Signs 07/15/19 15:39 Temperature 98.5 F Pulse Rate 90 Respiratory 20 Rate Blood Pressure 160/81 O2 Sat by Pulse 96 Oximetry ED Medical Decision Making - Medical Decision Making 54-year-old female presents to the emergency room for left heel pain and swelling times several days. Patient denies any falls or injuries. Patient states that she had x-ray last and was diagnosed with plantar fasciitis. Patient is complaining mostly of heel pain that travels up the Achilles. Patient reports been taken ibuprofen she takes oxycodone 10 mg up to 5 times a day as given to her for her fibromyalgia. Patient states nothing is helping with the pain. She reports that she was recently given Toradol but is not helping as well. Discussed the patient we'll place her on prednisone for 4 days and referral to orthopedics to evaluate for possible cortisone shots to the Achilles. Patient verbalized understanding. Critical care attestation.: If time is entered above; I have spent that time in minutes in the direct care of this critically ill patient, excluding procedure time. ED Disposition Clinical Impression: Achilles tendinitis, left leg Disposition: DC-01 TO HOME OR SELFCARE Is pt being admited?: No Does the pt Need Aspirin: No Condition: Stable Instructions: Achilles Tendinitis (ED) Prescriptions: predniSONE [Deltasone] 40 mg PO QDAY #10 tab Referrals: SLIM MORRIS MD [Staff Physician] - 3-5 Days
== END 2019-07-15 18:28 | disposition home or self-care (01) ==
LOC: ED 15:34
DX: M76.62 Achilles tendinitis, left leg (principal); I10 Essential (primary) hypertension; E11.9 Type 2 diabetes mellitus without complications; K21.9 Gastro-esophageal reflux disease without esophagitis; M19.90 Unspecified osteoarthritis, unspecified site; G43.909 Migraine, unspecified, not intractable, without status migrainosus; J45.909 Unspecified asthma, uncomplicated; Z98.51 Tubal ligation status; Z90.49 Acquired absence of other specified parts of digestive tract; Z86.73 Personal history of transient ischemic attack (TIA), and cerebral infarction without residual deficits; Z79.899 Other long term (current) drug therapy; Z91.013 Allergy to seafood; Z88.6 Allergy status to analgesic agent
CPT/HCPCS: 99282

== ENCOUNTER 2019-09-03 14:16 | Emergency (ER) | payer MEDICAID ==
[2019-09-03] MEDS ORDERED: IPRATROPIUM/ALBUTEROL SULFATE 3 ML AMPUL.NEB IH ONE (14:23)
--- NOTE | 2019-09-03 14:34 | Emergency Department Report ---
<ZACK MUNOZ - Last Filed: 09/03/19 17:02> ED Shortness of Breath HPI - General Chief Complaint: Dyspnea/Respdistress Stated Complaint: DEN Time Seen by Provider: 09/03/19 14:22 Source: EMS Mode of arrival: Stretcher Limitations: No Limitations - History of Present Illness Initial Comments: 54-year-old female presents to the emergency room for shortness of breath that started last night. Patient states that she has taken her albuterol nebulizer with no resolution of her symptoms. Patient comes in by EMS in respiratory distress. In route patient had started her Solu-Medrol Medrol 125 IV, magnesium 2 mg IV and albuterol nebulizer 5 mg IH. Patient reports that she has a past medical history of asthma diabetes hyperlipidemia depression fibromyalgia. Patient reports she's been intubated once and has had several hospital visits for asthma. Review of patient medication patient takes Advair, ranitidine, metformin. Denies any fever chills no nausea no vomiting or diaphoresis. Patient denies any chest pain. She does admit to left side legs swelling greater than right. MD Complaint: shortness of breath -: hour(s) Pain Scale: 0 Improves With: nothing Worsens With: nothing Known History Of: asthma, diabetes Associated Symptoms: cough Treatments Prior to Arrival: bronchodilator - Related Data Home Oxygen Therapy: No Home Medications Medication Instructions Recorded Confirmed Last Taken raNITIdine HCl [Ranitidine 150mg 150 mg PO BID 01/21/15 05/20/19 05/20/19 Cap] Fluticasone/Salmeterol [Advair 1 each IH BID 10/11/18 05/20/19 05/20/19 500-50 Diskus] Cyclobenzaprine [Flexeril 10 MG 10 mg PO TID PRN 05/20/19 05/20/19 Unknown TAB] Duloxetine HCl [Cymbalta] 60 mg PO QDAY 05/20/19 05/20/19 Unknown Fluticasone [Flonase] 1 spray NS QDAY 05/20/19 05/20/19 Unknown Loratadine [Claritin] 10 mg PO DAILY 05/20/19 05/20/19 Unknown Meloxicam [Mobic] 7.5 mg PO BID 05/20/19 05/20/19 Unknown Previous Rx's Medication Instructions Recorded Last Taken Type Lisinopril [Zestril TAB] 10 mg PO QDAY tablet 07/11/18 05/20/19 Rx ALBUTEROL Inhaler (OR & NICU) 2 puff IH QID PRN #1 inhalation 04/26/19 Unknown Rx [ProAir HFA Inhaler] Aspirin [Aspirin BABY CHEW TAB] 81 mg PO QPM #30 tab.chew 05/24/19 Unknown Rx Budesonide [Pulmicort Respules] 0.5 mg IH Q12HRT nebu 05/24/19 Unknown Rx Bumetanide [Bumetanide 2 mg tab] 1 mg PO DAILY #30 tablet 05/24/19 Unknown Rx Gabapentin 900 mg PO TID #90 capsule 05/24/19 Unknown Rx HYDROcodone/APAP 10-325 [[place] 1 each PO 5XD PRN #20 tablet 05/24/19 Unknown Rx 10-325 mg TAB] Pravastatin [Pravachol] 20 mg PO QHS #30 tablet 05/24/19 Unknown Rx metFORMIN [Glucophage] 500 mg PO BIDWM #60 tablet 05/24/19 Unknown Rx predniSONE [Deltasone] 40 mg PO QDAY #10 tab 07/15/19 Unknown Rx Prednisone [predniSONE 10 mg 10 mg PO .TAPER #21 tab.ds.pk 09/03/19 Unknown Rx (6-Day Pack, 21 Tabs)] Allergies Allergy/AdvReac Type Severity Reaction Status Date / Time pregabalin [From Lyrica] Allergy Unknown Verified 07/15/19 15:41 topiramate [From Topamax] Allergy Seizure Verified 07/15/19 15:41 shellfish Allergy Hives Uncoded 04/11/17 14:53 paragoric AdvReac Unknown Uncoded 04/11/17 14:53 ED Review of Systems Comment: All other systems reviewed and negative Respiratory: shortness of breath ED Past Medical Hx - Past Medical History Hx Hypertension: Yes Hx Congestive Heart Failure: No Hx Diabetes: Yes Hx GERD: Yes Hx Arthritis: Yes Hx Headaches / Migraines: Yes Hx Seizures: Yes Hx Asthma: Yes Hx COPD: No Hx HIV: No Additional medical history: scoliosis, Nerve problems, pinched nerves, neck problems, back problems., "TIA". FIBROMYALGIA - Surgical History Hx Cholecystectomy: Yes Hx Appendectomy: Yes Additional Surgical History: Tubal ligation. NECK SURGERY 2016 - Social History Smoking Status: Never Smoker Substance Use Type: None - Medications Home Medications: Home Medications Medication Instructions Recorded Confirmed Last Taken Type raNITIdine HCl [Ranitidine 150mg 150 mg PO BID 01/21/15 05/20/19 05/20/19 History Cap] Lisinopril [Zestril TAB] 10 mg PO QDAY tablet 07/11/18 05/20/19 05/20/19 Rx Fluticasone/Salmeterol [Advair 1 each IH BID 10/11/18 05/20/19 05/20/19 History 500-50 Diskus] ALBUTEROL Inhaler (OR & NICU) 2 puff IH QID PRN #1 inhalation 04/26/19 05/20/19 Unknown Rx [ProAir HFA Inhaler] Cyclobenzaprine [Flexeril 10 MG 10 mg PO TID PRN 05/20/19 05/20/19 Unknown History TAB] Duloxetine HCl [Cymbalta] 60 mg PO QDAY 05/20/19 05/20/19 Unknown History Fluticasone [Flonase] 1 spray NS QDAY 05/20/19 05/20/19 Unknown History Loratadine [Claritin] 10 mg PO DAILY 05/20/19 05/20/19 Unknown History Meloxicam [Mobic] 7.5 mg PO BID 05/20/19 05/20/19 Unknown History Aspirin [Aspirin BABY CHEW TAB] 81 mg PO QPM #30 tab.chew 05/24/19 Unknown Rx Budesonide [Pulmicort Respules] 0.5 mg IH Q12HRT nebu 05/24/19 Unknown Rx Bumetanide [Bumetanide 2 mg tab] 1 mg PO DAILY #30 tablet 05/24/19 Unknown Rx Gabapentin 900 mg PO TID #90 capsule 05/24/19 Unknown Rx HYDROcodone/APAP 10-325 [[place] 1 each PO 5XD PRN #20 tablet 05/24/19 Unknown Rx 10-325 mg TAB] Pravastatin [Pravachol] 20 mg PO QHS #30 tablet 05/24/19 Unknown Rx metFORMIN [Glucophage] 500 mg PO BIDWM #60 tablet 05/24/19 Unknown Rx predniSONE [Deltasone] 40 mg PO QDAY #10 tab 07/15/19 Unknown Rx Prednisone [predniSONE 10 mg 10 mg PO .TAPER #21 tab.ds.pk 09/03/19 Unknown Rx (6-Day Pack, 21 Tabs)] ED Physical Exam - General Limitations: No Limitations General appearance: alert, in no apparent distress - Head Head exam: Present: atraumatic, normocephalic - Eye Eye exam: Present: normal appearance - ENT ENT exam: Present: mucous membranes moist - Respiratory Respiratory exam: Present: accessory muscle use, decreased breath sounds - Cardiovascular Cardiovascular Exam: Present: regular rate, normal rhythm. Absent: systolic murmur, diastolic murmur, rubs, gallop - GI/Abdominal GI/Abdominal exam: Present: soft, normal bowel sounds. Absent: distended, tenderness - Expanded Lower Extremity Exam Left Lower Leg exam: Present: tenderness, swelling Neuro vascular tendon exam: Present: no vascular compromise - Neurological Exam Neurological exam: Present: alert, oriented X3 - Psychiatric Psychiatric exam: Present: normal affect, normal mood - Skin Skin exam: Present: warm, dry, intact, normal color. Absent: rash ED Medical Decision Making - Lab Data Result diagrams: 09/03/19 14:53 09/03/19 14:53 Laboratory Tests 09/03/19 09/03/19 09/03/19 14:53 14:53 14:53 WBC 9.0 RBC 4.73 Hgb 14.5 H Hct 43.4 H MCV 92 MCH 31 MCHC 33 RDW 13.4 Plt Count 350 Lymph % (Auto) 38.1 H Izard % (Auto) 10.7 H Eos % (Auto) 4.8 H Baso % (Auto) 0.8 Lymph # 3.4 Izard # 1.0 H Eos # 0.4 Baso # 0.1 Seg Neutrophils % 45.6 Seg Neutrophils # 4.1 PT 13.2 INR 1.01 APTT 28.1 D-Dimer 374.15 H Sodium 144 Potassium 4.1 Chloride 93.6 L Carbon Dioxide 31 H Anion Gap 24 BUN 23 H Creatinine 1.5 H Estimated GFR 36 BUN/Creatinine Ratio 15 Glucose 159 H Calcium 9.1 Total Bilirubin 0.30 AST 25 ALT 25 Alkaline Phosphatase 130 H Total Protein 8.5 H Albumin 4.4 Albumin/Globulin Ratio 1.1 - Radiology Data Radiology results: report reviewed Patient: NOEL GONZALEZ MR#: [id number] : 1965 Acct:[id number] Age/Sex: 54 / F ADM Date: 09/03/19 Loc: ED Attending Dr: Ordering Physician: JA PALAFOX Date of Service: 09/03/19 Procedure(s): XR chest 1V ap Accession Number(s): [id number] cc: JA PALAFOX Fluoro Time In Minutes: CHEST 1 VIEW, 09/03/2019 3:07 PM CLINICAL INFORMATION/INDICATION: Chest pain. Shortness of breath COMPARISON: Chest radiograph, 05/20/2019 FINDINGS: SUPPORT DEVICES: None. HEART: Cardiac silhouette is within normal limits in size. LUNGS/PLEURA: Mild bilateral interstitial thickening is similar to the previous study. No focal airspace consolidation or significant pleural effusion is seen. ADDITIONAL FINDINGS: No additional acute findings. IMPRESSION: 1. No evidence of acute cardiopulmonary process. Signer Name: Namrata Heath MD Signed: 09/03/2019 3:25 PM Workstation Name: [id number] Transcribed By: EB Dictated By: Namrata Heath MD Electronically Authenticated By: Namrata Heath MD Signed Date/Time: 09/03/19 1525 DD/ 1524 TD/TT: - Medical Decision Making 54-year-old female presents to the emergency room for shortness of breath that started last night. Patient states that she has taken her albuterol nebulizer with no resolution of her symptoms. Patient comes in by EMS in respiratory distress. In route patient had started her Medrol 125 IV, magnesium 2 mg IV and albuterol nebulizer 5 mg IH. Patient reports that she has a past medical history of asthma diabetes hyperlipidemia depression fibromyalgia. Review of patient medication patient takes Advair, ranitidine, metformin. Den ies any fever chills no nausea no vomiting or diaphoresis. Patient denies any chest pain. She does admit to left side legs swelling greater than right. - Differential Diagnosis pe,chf,pneumonia ED Disposition Clinical Impression: Shortness of breath, Leg swelling Asthma with acute exacerbation in adult Qualifiers: Asthma severity: moderate Asthma persistence: persistent Qualified Code(s): J45.41 - Moderate persistent asthma with (acute) exacerbation Disposition: TO HOME OR SELFCARE Condition: Stable Instructions: Asthma (ED), Dyspnea (ED), Leg Edema (ED) Additional Instructions: Follow-up with your primary care physician in 3-5 days for reevaluation. Take medications, drink plenty of fluids, return to the ED immediately if symptoms get worse. Otherwise contact the ED the next day to schedule for lower extr emity Doppler studies to rule out DVT. Prescriptions: Prednisone [predniSONE 10 mg (6-Day Pack, 21 Tabs)] 10 mg PO .TAPER #21 tab.ds.pk Referrals: PRIMARY CARE, [Referring] - 3-5 Days Print Language: ECUADOREAN <CITLALI DUARTE - Last Filed: 09/03/19 20:31> ED Review of Systems ROS: Stated complaint: DEN Other details as noted in HPI ED Course Vital Signs 09/03/19 09/03/19 09/03/19 14:24 14:25 14:33 Temperature 97.8 F 97.8 F Pulse Rate 91 H 96 H Pulse Rate [ Bilateral Upper Lobe] Respiratory 28 H 29 H Rate Respiratory Rate [Bilateral Upper Lobe] Blood Pressure Blood Pressure 150/59 [Left] O2 Sat by Pulse 100 100 Oximetry 09/03/19 09/03/19 09/03/19 14:42 14:46 15:00 Temperature Pulse Rate 89 100 H Pulse Rate [ 104 H Bilateral Upper Lobe] Respiratory 13 16 Rate Respiratory 20 Rate [Bilateral Upper Lobe] Blood Pressure 121/55 121/55 Blood Pressure [Left] O2 Sat by Pulse 100 99 Oximetry 09/03/19 09/03/19 09/03/19 15:06 15:16 15:30 Temperature Pulse Rate 92 H 95 H 95 H Pulse Rate [ Bilateral Upper Lobe] Respiratory 11 L 12 Rate Respiratory Rate [Bilateral Upper Lobe] Blood Pressure 130/61 141/63 Blood Pressure [Left] O2 Sat by Pulse 95 94 Oximetry 09/03/19 09/03/19 09/03/19 15:46 16:00 16:16 Temperature Pulse Rate 94 H 96 H 93 H Pulse Rate [ Bilateral Upper Lobe] Respiratory 19 18 17 Rate Respiratory Rate [Bilateral Upper Lobe] Blood Pressure 119/60 141/75 128/53 Blood Pressure [Left] O2 Sat by Pulse 89 95 95 Oximetry 09/03/19 09/03/19 09/03/19 16:30 16:45 17:00 Temperature Pulse Rate 93 H 92 H 93 H Pulse Rate [ Bilateral Upper Lobe] Respiratory 17 16 17 Rate Respiratory Rate [Bilateral Upper Lobe] Blood Pressure 113/59 118/51 116/61 Blood Pressure [Left] O2 Sat by Pulse 94 93 93 Oximetry 09/03/19 09/03/19 09/03/19 17:16 17:30 17:46 Temperature Pulse Rate 93 H 94 H 99 H Pulse Rate [ Bilateral Upper Lobe] Respiratory 12 18 18 Rate Respiratory Rate [Bilateral Upper Lobe] Blood Pressure 115/53 127/51 124/87 Blood Pressure [Left] O2 Sat by Pulse 95 93 95 Oximetry 09/03/19 09/03/19 09/03/19 18:00 18:16 18:30 Temperature Pulse Rate 96 H 100 H 102 H Pulse Rate [ Bilateral Upper Lobe] Respiratory 14 10 L 13 Rate Respiratory Rate [Bilateral Upper Lobe] Blood Pressure 128/71 131/71 127/51 Blood Pressure [Left] O2 Sat by Pulse 96 96 97 Oximetry ED Medical Decision Making - Lab Data Result diagrams: 09/03/19 14:53 09/03/19 14:53 - Radiology Data Findings [place] [id number] Nuclear Medicine Report Signed Patient: NOEL GONZALEZ MR#: [id number] : 1965 Acct:[id number] Age/Sex: 54 / F ADM Date: 09/03/19 Loc: ED Attending Dr: Ordering Physician: JA PALAFOX Date of Service: 09/03/19 Procedure(s): NM lung scan perf/vent Accession Number(s): [id number] cc: JA PALAFOX V/Q Scan HISTORY: sob with elevated. TECHNIQUE: Patient was given 5 mCi of technetium MAA and 12 mCi of xenon-133. COMPARISON: Chest x-ray from today FINDINGS: No appreciable mismatch between ventilation and perfusion imaging. IMPRESSION: Low probability for PTE. Signer Name: Hakeem Montgomery MD Signed: 09/03/2019 7:28 PM Workstation Name: [id number] Transcribed By: JW Dictated By: Hakeem Montgomery MD Electronically Authenticated By: Hakeem Montgomery MD Signed Date/Time: 09/03/191927 DD/ 27 TD/TT: - Medical Decision Making I assumed care of the patient home Ms. Piter VALLEJO at shift change at 1800 hrs. Patient had presented to the ED with shortness of breath and left leg swelling. Patient has a history of asthma and uses albuterol nebulizer and inhaler at home but presented to the ED after using the nebulizer multiple times at home with no relief. Lab test results were reviewed and are nonactionable except for d-dimer that was elevated to 374.15. At shift change patient was awaiting VQ scan to rule out PE. Chest x-ray showed no acute cardiopulmonary abnormalities or pneumonitis. The VQ scan of the chest report show low probability for pulmonary thromboembolism. On reevaluation of the patient, patient's oxygen saturation ranges from 96% to 97% in room air. The patient's heart rate ranged from 98 bpm 100 bpm. Patient walked in the ED normally with no shortness of breath, carrying out normal co nversation about her family and herself. Patient was discharged from the ED and given an outpatient referral for lower extremity Doppler ultrasound studies to rule out DVT from her bilateral lower extremities. Patient was discharged home on prednisone Dosepak and advised to follow-up with her primary care physician in 3-5 days for reevaluation or return to the ED immediately if symptoms get worse. - Differential Diagnosis pe,chf,pneumonia, Asthma, DVT Critical care attestation.: If time is entered above; I have spent that time in minutes in the direct care of this critically ill patient, excluding procedure time. ED Disposition Is pt being admited?: No Does the pt Need Aspirin: No Time of Disposition: 20:23
[2019-09-03 15:09] LABS: Basophils # (Auto) 0.1 K/mm3 (0.0-0.1); Basophils % (Auto) 0.8 % (0.0-1.8); Eosinophils # (Auto) 0.4 K/mm3 (0.0-0.4); Eosinophils % (Auto) 4.8 % (0.0-4.3); Hematocrit 43.4 % (30.3-42.9); Hemoglobin 14.5 gm/dl (10.1-14.3); Lymphocytes # (Auto) 3.4 K/mm3 (1.2-5.4); Lymphocytes % (Auto) 38.1 % (13.4-35.0); Mean Corpuscular HGB Conc 33 % (30-34); Mean Corpuscular Volume 92 fl (79-97); Monocytes % (Auto) 10.7 % (0.0-7.3); Platelet Count 350 K/mm3 (140-440); Red Blood Count 4.73 M/mm3 (3.65-5.03); Red Cell Distribution Width 13.4 % (13.2-15.2)
[2019-09-03 15:22] LABS: INR 1.01 (0.87-1.13); Partial Thromboplastin Time 28.1 Sec. (24.2-36.6)
[2019-09-03 15:29] LABS: Albumin 4.4 g/dL (3.9-5); Calcium 9.1 mg/dL (8.4-10.2)
--- NOTE | 2019-09-03 15:29 | XRay Report ---
CHEST 1 VIEW, 09/03/2019 3:07 PM CLINICAL INFORMATION/INDICATION: Chest pain. Shortness of breath COMPARISON: Chest radiograph, 05/20/2019 FINDINGS: SUPPORT DEVICES: None. HEART: Cardiac silhouette is within normal limits in size. LUNGS/PLEURA: Mild bilateral interstitial thickening is similar to the previous study. No focal airsp bree consolidation or significant pleural effusion is seen. ADDITIONAL FINDINGS: No additional acute findings. IMPRESSION: 1. No evidence of acute cardiopulmonary process. Signer Name: Namrata Heath MD Signed: 09/03/2019 3:25 PM Workstation Name: [id number]
[2019-09-03] MEDS ORDERED: SODIUM CHLORIDE 0.9% 1000 ML 1,000 ML IV ONE (17:04)
[2019-09-03 18:47] VITALS: BP 127/51
--- NOTE | 2019-09-03 19:32 | Nuclear Medicine Report ---
V/Q Scan HISTORY: sob with elevated. TECHNIQUE: Patient was given 5 mCi of technetium MAA and 12 mCi of xenon-133. COMPARISON: Chest x-ray from today FINDINGS: No appreciable mismatch between ventilation and perfusion imaging. IMPRESSION: Low probability for PTE. Signer Name: Hakeem Montgomery MD Signed: 09/03/2019 7:28 PM Workstation Name: [id number]
== END 2019-09-03 21:12 | disposition home or self-care (01) ==
LOC: ED 14:16
DX: R06.02 Shortness of breath (principal); M79.89 Other specified soft tissue disorders; I10 Essential (primary) hypertension; E11.9 Type 2 diabetes mellitus without complications; K21.9 Gastro-esophageal reflux disease without esophagitis; M19.90 Unspecified osteoarthritis, unspecified site; G43.909 Migraine, unspecified, not intractable, without status migrainosus; J45.909 Unspecified asthma, uncomplicated; M41.9 Scoliosis, unspecified; M79.7 Fibromyalgia; Z90.49 Acquired absence of other specified parts of digestive tract; Z98.51 Tubal ligation status; Z98.890 Other specified postprocedural states; Z79.899 Other long term (current) drug therapy; Z91.013 Allergy to seafood; Z88.8 Allergy status to other drugs, medicaments and biological substances
CPT/HCPCS: 36415; 71045; 78582; 80053; 85025; 85379; 85610; 85730; 93005; 93010; 94640; 99284; A9540; A9558; J7030; 94644

== ENCOUNTER 2019-10-22 19:42 | Emergency (ER) | payer MEDICAID ==
--- NOTE | 2019-10-22 20:07 | Event Note ---
ED Screening Note Date of service: 10/22/19 Time: 20:03 ED Screening Note: 54 y o female presents with left knee swelling x 3-4 days cc of knee pain 7/10 intensity causing pain with walking hx of arthritis allso cc of dizziness from vertigo worsening x today This initial assessment/diagnostic orders/clinical plan/treatment(s) is/are subject to change based on patients health status, clinical progression and re- assessment by fellow clinical providers in the ED. Further treatment and workup at subsequent clinical providers discretion. Patient/guardian urged not to elope from the ED as their condition may be serious if not clinically assessed and managed. Initial orders include: xr knee
--- NOTE | 2019-10-22 20:59 | XRay Report ---
LEFT KNEE, 3 VIEWS 10/22/2019 INDICATION / CLINICAL INFORMATION: pain and swelling. COMPARISON: None available. FINDINGS: Degenerative changes are seen in the patellofemoral joint and medial compartment. There appears to be a small joint effusion. No fracture or dislocation. Signer Name: Kenn Bryan MD Signed: 10/22/2019 8:55 PM Workstation Name: [id number]
[2019-10-22] MEDS ORDERED: dexAMETHasone 20 MG/5 ML VIAL IM ONE (21:25)
[2019-10-22] MEDS ORDERED: traMADol 50 MG TAB PO ONE (21:25)
--- NOTE | 2019-10-22 22:23 | Emergency Department Report ---
ED Lower Extremity HPI - General Chief Complaint: Extremity Problem,Nontraumatic Stated Complaint: LEFT ARM AND LEFT LEG SWELLING Time Seen by Provider: 10/22/19 21:23 Source: patient Mode of arrival: Ambulatory Limitations: No Limitations - History of Present Illness Initial Comments: 54 y o female presents with left knee swelling x 3-4 days cc of knee pain 7/10 intensity causing pain with walking hx of arthritis MD Complaint: knee injury - Related Data Home Medications Medication Instructions Recorded Confirmed Last Taken raNITIdine HCl [Ranitidine 150mg 150 mg PO BID 01/21/15 05/20/19 05/20/19 Cap] Fluticasone/Salmeterol [Advair 1 each IH BID 10/11/18 05/20/19 05/20/19 500-50 Diskus] Cyclobenzaprine [Flexeril 10 MG 10 mg PO TID PRN 05/20/19 05/20/19 Unknown TAB] Duloxetine HCl [Cymbalta] 60 mg PO QDAY 05/20/19 05/20/19 Unknown Fluticasone [Flonase] 1 spray NS QDAY 05/20/19 05/20/19 Unknown Loratadine (Nf) [Claritin (Nf)] 10 mg PO DAILY 05/20/19 05/20/19 Unknown Meloxicam [Mobic] 7.5 mg PO BID 05/20/19 05/20/19 Unknown Previous Rx's Medication Instructions Recorded Last Taken Type lisinopriL [Zestril TAB] 10 mg PO QDAY tablet 07/11/18 05/20/19 Rx ALBUTEROL Inhaler (OR & NICU) 2 puff IH QID PRN #1 inhalation 04/26/19 Unknown Rx [ProAir HFA Inhaler] Aspirin [Aspirin BABY CHEW TAB] 81 mg PO QPM #30 tab.chew 05/24/19 Unknown Rx Budesonide [Pulmicort Respules] 0.5 mg IH Q12HRT nebu 05/24/19 Unknown Rx Bumetanide [Bumetanide 2 mg tab] 1 mg PO DAILY #30 tablet 05/24/19 Unknown Rx Gabapentin 900 mg PO TID #90 capsule 05/24/19 Unknown Rx HYDROcodone/APAP 10-325 [[place] 1 each PO 5XD PRN #20 tablet 05/24/19 Unknown Rx 10-325 mg TAB] Pravastatin [Pravachol] 20 mg PO QHS #30 tablet 05/24/19 Unknown Rx metFORMIN [Glucophage] 500 mg PO BIDWM #60 tablet 05/24/19 Unknown Rx predniSONE [Deltasone] 40 mg PO QDAY #10 tab 07/15/19 Unknown Rx Prednisone [predniSONE 10 mg 10 mg PO .TAPER #21 tab.ds.pk 09/03/19 Unknown Rx (6-Day Pack, 21 Tabs)] Menthol/Camphor [[place] 1 applicatio TP QID PRN #1 tube 10/22/19 Unknown Rx Ointment] Naproxen 500 mg PO BID PRN #30 tablet 10/22/19 Unknown Rx predniSONE [Deltasone] 40 mg PO QDAY 10 Days #10 tab 10/22/19 Unknown Rx Allergies Allergy/AdvReac Type Severity Reaction Status Date / Time pregabalin [From Lyrica] Allergy Unknown Verified 07/15/19 15:41 topiramate [From Topamax] Allergy Seizure Verified 07/15/19 15:41 shellfish Allergy Hives Uncoded 04/11/17 14:53 paragoric AdvReac Unknown Uncoded 04/11/17 14:53 ED Review of Systems ROS: Stated complaint: LEFT ARM AND LEFT LEG SWELLING Other details as noted in HPI ED Past Medical Hx - Past Medical History Previous Medical History?: Yes Hx Hypertension: Yes Hx Congestive Heart Failure: No Hx Diabetes: Yes Hx GERD: Yes Hx Arthritis: Yes Hx Headaches / Migraines: Yes Hx Seizures: Yes Hx Asthma: Yes Hx COPD: No Hx HIV: No Additional medical history: scoliosis, Nerve problems, pinched nerves, neck problems, back problems., "TIA". FIBROMYALGIA, Vertigo - Surgical History Past Surgical History?: Yes Hx Cholecystectomy: Yes Hx Appendectomy: Yes Additional Surgical History: Tubal ligation. NECK SURGERY 2016 - Social History Smoking Status: Never Smoker Substance Use Type: None - Medications Home Medications: Home Medications Medication Instructions Recorded Confirmed Last Taken Type raNITIdine HCl [Ranitidine 150mg 150 mg PO BID 01/21/15 05/20/19 05/20/19 History Cap] lisinopriL [Zestril TAB] 10 mg PO QDAY tablet 07/11/18 05/20/19 05/20/19 Rx Fluticasone/Salmeterol [Advair 1 each IH BID 10/11/18 05/20/19 05/20/19 History 500-50 Diskus] ALBUTEROL Inhaler (OR & NICU) 2 puff IH QID PRN #1 inhalation 04/26/19 05/20/19 Unknown Rx [ProAir HFA Inhaler] Cyclobenzaprine [Flexeril 10 MG 10 mg PO TID PRN 05/20/19 05/20/19 Unknown History TAB] Duloxetine HCl [Cymbalta] 60 mg PO QDAY 05/20/19 05/20/19 Unknown History Fluticasone [Flonase] 1 spray NS QDAY 05/20/19 05/20/19 Unknown History Loratadine (Nf) [Claritin (Nf)] 10 mg PO DAILY 05/20/19 05/20/19 Unknown History Meloxicam [Mobic] 7.5 mg PO BID 05/20/19 05/20/19 Unknown History Aspirin [Aspirin BABY CHEW TAB] 81 mg PO QPM #30 tab.chew 05/24/19 Unknown Rx Budesonide [Pulmicort Respules] 0.5 mg IH Q12HRT nebu 05/24/19 Unknown Rx Bumetanide [Bumetanide 2 mg tab] 1 mg PO DAILY #30 tablet 05/24/19 Unknown Rx Gabapentin 900 mg PO TID #90 capsule 05/24/19 Unknown Rx HYDROcodone/APAP 10-325 [[place] 1 each PO 5XD PRN #20 tablet 05/24/19 Unknown Rx 10-325 mg TAB] Pravastatin [Pravachol] 20 mg PO QHS #30 tablet 05/24/19 Unknown Rx metFORMIN [Glucophage] 500 mg PO BIDWM #60 tablet 05/24/19 Unknown Rx predniSONE [Deltasone] 40 mg PO QDAY #10 tab 07/15/19 Unknown Rx Prednisone [predniSONE 10 mg 10 mg PO .TAPER #21 tab.ds.pk 09/03/19 Unknown Rx (6-Day Pack, 21 Tabs)] Menthol/Camphor [[place] 1 applicatio TP QID PRN #1 tube 10/22/19 Unknown Rx Ointment] Naproxen 500 mg PO BID PRN #30 tablet 10/22/19 Unknown Rx predniSONE [Deltasone] 40 mg PO QDAY 10 Days #10 tab 10/22/19 Unknown Rx ED Physical Exam - General Limitations: No Limitations ED Course Vital Signs 10/22/19 10/22/19 19:48 21:42 Temperature 98.9 F Pulse Rate 106 H Respiratory 18 18 Rate Blood Pressure 137/84 O2 Sat by Pulse 93 Oximetry Critical care attestation.: If time is entered above; I have spent that time in minutes in the direct care of this critically ill patient, excluding procedure time. ED Disposition Clinical Impression: Knee effusion, left Arthralgia Qualifiers: Joint pain location: knee Laterality: left Qualified Code(s): M25.562 - Pain in left knee Disposition: DC- TO HOME OR SELFCARE Is pt being admited?: No Does the pt Need Aspirin: No Condition: Stable Instructions: Knee Effusion (ED), Osteoarthritis (ED) Prescriptions: predniSONE [Deltasone] 40 mg PO QDAY 10 Days #10 tab Naproxen 500 mg PO BID PRN #30 tablet PRN Reason: pain Menthol/Camphor [[place] Ointment] 1 applicatio TP QID PRN #1 tube PRN Reason: pain Referrals: SLIM MORRIS MD [Staff Physician] - 3-5 Days Forms: Work/School Release Form(ED) Time of Disposition: 22:22
[2019-10-22 22:33] VITALS: BP 123/72
== END 2019-10-22 22:34 | disposition home or self-care (01) ==
LOC: ED 19:42
DX: M25.462 Effusion, left knee (principal); I10 Essential (primary) hypertension; E11.9 Type 2 diabetes mellitus without complications; K21.9 Gastro-esophageal reflux disease without esophagitis; G43.909 Migraine, unspecified, not intractable, without status migrainosus; J45.909 Unspecified asthma, uncomplicated; Z90.49 Acquired absence of other specified parts of digestive tract; Z98.51 Tubal ligation status; Z98.890 Other specified postprocedural states; Z79.899 Other long term (current) drug therapy; Z91.013 Allergy to seafood; Z88.8 Allergy status to other drugs, medicaments and biological substances
CPT/HCPCS: 73562; 96372; 99283; J1100

== ENCOUNTER 2019-11-17 13:13 | Emergency (ER) | payer MEDICAID ==
--- NOTE | 2019-11-17 14:00 | Emergency Department Report ---
Blank Doc - Documentation Documentation: 54-year-old female that presents with left knee pain. This initial assessment/diagnostic orders/clinical plan/treatment(s) is/are subject to change based on patient's health status, clinical progression and re- assessment by fellow clinical providers in the ED. Further treatment and workup at subsequent clinical providers discretion. Patient/guardians urged not to elope from the ED as their condition may be serious if not clinically assessed and managed. Initial orders include: 1- Patient sent to [facility] for further evaluation and treatment 2- xrays
--- NOTE | 2019-11-17 14:50 | XRay Report ---
LEFT KNEE 3 VIEWS INDICATION: knee pain. COMPARISON: Radiograph 10/22/2019. FINDINGS: No acute, displaced fracture or dislocation is seen. Tricompartmental degenerative changes are again noted, greatest at the medial tibiofemoral compartment. No joint effusion is seen. No soft tissue catia cifications. IMPRESSION: 1. No acute findings. Signer Name: Shon Sauer MD Signed: 11/17/2019 2:46 PM Workstation Name: [id number]
--- NOTE | 2019-11-17 16:33 | Emergency Department Report ---
ED General Adult HPI - General Chief complaint: Extremity Injury, Lower Stated complaint: FALL,(L) KNEE Time Seen by Provider: 11/17/19 14:00 Source: patient Mode of arrival: Ambulatory Limitations: No Limitations - History of Present Illness Initial comments: 58-year-old female who was in for the pain last month. She had an x-ray showing degenerative disease then. She states she has no appointment with [facility] for consideration for operative care. Today she states she thinks her knee popped out. She didn't actually see any deformity. She complains of diffuse anterior knee discomfort. She is able to ambulate with her cane. She denies any other injury. -: Gradual Improves with: none Worsens with: none Associated Symptoms: denies other symptoms Treatments Prior to Arrival: none - Related Data Home Medications Medication Instructions Recorded Confirmed Last Taken raNITIdine HCl [Ranitidine 150mg 150 mg PO BID 01/21/15 05/20/19 05/20/19 Cap] Fluticasone/Salmeterol [Advair 1 each IH BID 10/11/18 05/20/19 05/20/19 500-50 Diskus] Cyclobenzaprine [Flexeril 10 MG 10 mg PO TID PRN 05/20/19 05/20/19 Unknown TAB] Duloxetine HCl [Cymbalta] 60 mg PO QDAY 05/20/19 05/20/19 Unknown Fluticasone [Flonase] 1 spray NS QDAY 05/20/19 05/20/19 Unknown Loratadine (Nf) [Claritin (Nf)] 10 mg PO DAILY 05/20/19 05/20/19 Unknown Meloxicam [Mobic] 7.5 mg PO BID 05/20/19 05/20/19 Unknown Previous Rx's Medication Instructions Recorded Last Taken Type lisinopriL [Zestril TAB] 10 mg PO QDAY tablet 07/11/18 05/20/19 Rx Albuterol INH(or & Nicu Only) 2 puff IH QID PRN #1 inhalation 04/26/19 Unknown Rx [ProAir HFA Inhaler] Aspirin [Aspirin BABY CHEW TAB] 81 mg PO QPM #30 tab.chew 05/24/19 Unknown Rx Budesonide [Pulmicort Respules] 0.5 mg IH Q12HRT nebu 05/24/19 Unknown Rx Bumetanide [Bumetanide 2 mg tab] 1 mg PO DAILY #30 tablet 05/24/19 Unknown Rx Gabapentin 900 mg PO TID #90 capsule 05/24/19 Unknown Rx HYDROcodone/APAP 10-325 [[place] 1 each PO 5XD PRN #20 tablet 05/24/19 Unknown Rx 10-325 mg TAB] Pravastatin [Pravachol] 20 mg PO QHS #30 tablet 05/24/19 Unknown Rx metFORMIN [Glucophage] 500 mg PO BIDWM #60 tablet 05/24/19 Unknown Rx predniSONE [Deltasone] 40 mg PO QDAY #10 tab 07/15/19 Unknown Rx Prednisone [predniSONE 10 mg 10 mg PO .TAPER #21 tab.ds.pk 09/03/19 Unknown Rx (6-Day Pack, 21 Tabs)] Menthol/Camphor [[place] 1 applicatio TP QID PRN #1 tube 10/22/19 Unknown Rx Ointment] Naproxen 500 mg PO BID PRN #30 tablet 10/22/19 Unknown Rx predniSONE [Deltasone] 40 mg PO QDAY 10 Days #10 tab 10/22/19 Unknown Rx traMADoL [Ultram 50 MG tab] 50 mg PO Q6HR PRN #10 tablet 11/17/19 Unknown Rx Allergies Allergy/AdvReac Type Severity Reaction Status Date / Time pregabalin [From Lyrica] Allergy Unknown Verified 07/15/19 15:41 topiramate [From Topamax] Allergy Seizure Verified 07/15/19 15:41 shellfish Allergy Hives Uncoded 04/11/17 14:53 paragoric AdvReac Unknown Uncoded 04/11/17 14:53 ED Review of Systems ROS: Stated complaint: FALL,(L) KNEE Other details as noted in HPI Comment: All other systems reviewed and negative ED Past Medical Hx - Past Medical History Hx Hypertension: Yes Hx Congestive Heart Failure: No Hx Diabetes: Yes Hx GERD: Yes Hx Arthritis: Yes Hx Headaches / Migraines: Yes Hx Seizures: Yes Hx Asthma: Yes Hx COPD: No Hx HIV: No Additional medical history: scoliosis, Nerve problems, pinched nerves, neck problems, back problems., "TIA". FIBROMYALGIA, Vertigo - Surgical History Hx Cholecystectomy: Yes Hx Appendectomy: Yes Additional Surgical History: Tubal ligation. NECK SURGERY 2016 - Social History Smoking Status: Never Smoker Substance Use Type: None - Medications Home Medications: Home Medications Medication Instructions Recorded Confirmed Last Taken Type raNITIdine HCl [Ranitidine 150mg 150 mg PO BID 01/21/15 05/20/19 05/20/19 History Cap] lisinopriL [Zestril TAB] 10 mg PO QDAY tablet 07/11/18 05/20/19 05/20/19 Rx Fluticasone/Salmeterol [Advair 1 each IH BID 10/11/18 05/20/19 05/20/19 History 500-50 Diskus] Albuterol INH(or & Nicu Only) 2 puff IH QID PRN #1 inhalation 04/26/19 05/20/19 Unknown Rx [ProAir HFA Inhaler] Cyclobenzaprine [Flexeril 10 MG 10 mg PO TID PRN 05/20/19 05/20/19 Unknown History TAB] Duloxetine HCl [Cymbalta] 60 mg PO QDAY 05/20/19 05/20/19 Unknown History Fluticasone [Flonase] 1 spray NS QDAY 05/20/19 05/20/19 Unknown History Loratadine (Nf) [Claritin (Nf)] 10 mg PO DAILY 05/20/19 05/20/19 Unknown History Meloxicam [Mobic] 7.5 mg PO BID 05/20/19 05/20/19 Unknown History Aspirin [Aspirin BABY CHEW TAB] 81 mg PO QPM #30 tab.chew 05/24/19 Unknown Rx Budesonide [Pulmicort Respules] 0.5 mg IH Q12HRT nebu 05/24/19 Unknown Rx Bumetanide [Bumetanide 2 mg tab] 1 mg PO DAILY #30 tablet 05/24/19 Unknown Rx Gabapentin 900 mg PO TID #90 capsule 05/24/19 Unknown Rx HYDROcodone/APAP 10-325 [[place] 1 each PO 5XD PRN #20 tablet 05/24/19 Unknown Rx 10-325 mg TAB] Pravastatin [Pravachol] 20 mg PO QHS #30 tablet 05/24/19 Unknown Rx metFORMIN [Glucophage] 500 mg PO BIDWM #60 tablet 05/24/19 Unknown Rx predniSONE [Deltasone] 40 mg PO QDAY #10 tab 07/15/19 Unknown Rx Prednisone [predniSONE 10 mg 10 mg PO .TAPER #21 tab.ds.pk 09/03/19 Unknown Rx (6-Day Pack, 21 Tabs)] Menthol/Camphor [[place] 1 applicatio TP QID PRN #1 tube 10/22/19 Unknown Rx Ointment] Naproxen 500 mg PO BID PRN #30 tablet 10/22/19 Unknown Rx predniSONE [Deltasone] 40 mg PO QDAY 10 Days #10 tab 10/22/19 Unknown Rx traMADoL [Ultram 50 MG tab] 50 mg PO Q6HR PRN #10 tablet 11/17/19 Unknown Rx ED Physical Exam - General Limitations: No Limitations General appearance: alert - Head Head exam: Present: atraumatic - Eye Eye exam: Present: normal appearance - ENT ENT exam: Present: normal exam - Neck Neck exam: Present: normal inspection - GI/Abdominal GI/Abdominal exam: Present: soft - Extremities Exam Extremities exam: Present: normal inspection, other (range of motion of the knee is not significantly tender. It is stable. There is no effusion noted.). Absent: pedal edema, calf tenderness - Back Exam Back exam: Present: normal inspection - Neurological Exam Neurological exam: Present: alert, CN II-XII intact. Absent: motor sensory deficit - Psychiatric Psychiatric exam: Present: normal affect, normal mood ED Course Vital Signs 11/17/19 11/17/19 13:25 14:00 Temperature 98.7 F 98.7 F Pulse Rate 77 77 Respiratory 18 16 Rate Blood Pressure 137/83 137/83 O2 Sat by Pulse 93 100 Oximetry ED Medical Decision Making - Radiology Data Radiology results: report reviewed (no acute finding. Degenerative changes.) Critical care attestation.: If time is entered above; I have spent that time in minutes in the direct care of this critically ill patient, excluding procedure time. ED Disposition Clinical Impression: Knee strain Qualifiers: Encounter type: initial encounter Laterality: left Qualified Code(s): S86.912A - Strain of unspecified muscle(s) and tendon(s) at lower leg level, left leg, initial encounter Osteoarthritis of left knee Qualifiers: Osteoarthritis type: primary Qualified Code(s): M17.12 - Unilateral primary osteoarthritis, left knee Disposition: TO HOME OR SELFCARE Is pt being admited?: No Does the pt Need Aspirin: No Condition: Stable Instructions: Osteoarthritis (ED), Knee Pain (ED) Additional Instructions: Follow-up and [facility] as planned. Limited weight bearing. Rest knee. Prescriptions: traMADoL [Ultram 50 MG tab] 50 mg PO Q6HR PRN #10 tablet PRN Reason: Pain Referrals: PRIMARY CARE, [Primary Care Provider] - 3-5 Days Time of Disposition: 16:35
[2019-11-17 16:57] VITALS: BP 131/80
== END 2019-11-17 16:55 | disposition home or self-care (01) ==
LOC: ED 13:13
DX: S86.912A Strain of unspecified muscle(s) and tendon(s) at lower leg level, left leg, initial encounter (principal); M17.12 Unilateral primary osteoarthritis, left knee; I10 Essential (primary) hypertension; E11.9 Type 2 diabetes mellitus without complications; K21.9 Gastro-esophageal reflux disease without esophagitis; J45.909 Unspecified asthma, uncomplicated; Z98.51 Tubal ligation status; Z79.899 Other long term (current) drug therapy; Z91.013 Allergy to seafood; Z98.890 Other specified postprocedural states; Z88.1 Allergy status to other antibiotic agents; Z88.8 Allergy status to other drugs, medicaments and biological substances; Z79.84 Long term (current) use of oral hypoglycemic drugs; X58.XXXA Exposure to other specified factors, initial encounter; Y93.89 Activity, other specified; Y92.89 Other specified places as the place of occurrence of the external cause; Y99.8 Other external cause status

== ENCOUNTER 2020-04-17 12:29 | Inpatient (IN) | payer MEDICAID ==
[2020-04-17] MEDS ORDERED: IPRATROPIUM/ALBUTEROL SULFATE 3 ML AMPUL.NEB IH ONE ×2 (12:34→12:36)
[2020-04-17] MEDS ORDERED: methylPREDNISolone Sod Succinate 125 MG/2 ML INJ IV ONE (12:34)
[2020-04-17] MEDS ORDERED: MAGNESIUM SULFATE 2 GM/50 ML BAG IV ONE (12:34)
[2020-04-17] MEDS ORDERED: methylPREDNISolone Sod Succinate 125 MG/2 ML INJ ONE (12:36)
--- NOTE | 2020-04-17 12:36 | Emergency Department Report ---
Minor Respiratory - HPI Stated Complaint: ASTHMA ATTACK Time Seen by Provider: 04/17/20 12:35 Duration: 3 Days Pain Location: Chest Severity: moderate Minor Respiratory: Yes Able to Tolerate Fluids, Yes Cough, Yes Sick Contacts, Yes Chest Pain, Yes Shortness of Breath, Yes Fever, No Rhinorrhea, No Sore Throat, No Ear Pain, No Hemoptysis Other History: Patient is a 54-year-old that comes to the emergency room today with shortness of breath and wheezing. Patient has asthma. Patient was brought to [facility] immediately upon presentation to triage due to her wheezing. Patient denies any chest pain other than the usual heaviness associated with her asthma. Note that the patient had a clean cardiac cath in the fall 2018. Patient has no history of PE. She is a never smoker. Patient does not wear home O2. Patient does seem to be compliant with her home medications which she brings a list of. Patient states that she has had no fever or chills. She has had increasing shortness of breath and cough for 3 days. Patient endorses yellow sputum. She denies any loss of taste or smell. She denies nausea vomiting or diarrheaPatient sees Amilcar for her primary care. And she states that she sees Dr. Craig for her asthma. Her last appointment was just a few days ago via telemedicine with Dr. Craig. At that visit he changed her from loratadine to Alejandra. Patient states that 4 of her sons coworkers have been positive for COVID. She states that 1 passed out at work and required EMS transport to the hospital. Her son is not had symptoms. However, she is concerned that she may have been exposed. On arrival to [facility] patient's heart rate was 107 and sat 94% on room air. Patient has an extensive medical history and has been admitted to [facility] on numerous occasions. ED Review of Systems ROS: Stated complaint: ASTHMA ATTACK Other details as noted in HPI Comment: All other systems reviewed and negative ED Past Medical Hx - Past Medical History Previous Medical History?: Yes Hx Hypertension: Yes Hx CVA: Yes (TIA) Hx Heart Attack/AMI: No (STRESS TEST NEG 2018, cardiac cath 2019 normal) Hx Congestive Heart Failure: No Hx Diabetes: Yes Hx Deep Vein Thrombosis: No Hx Pulmonary Embolism: No Hx GERD: Yes Hx Liver Disease: No Hx Renal Disease: No Hx of Cancer: No Hx Sickle Cell Disease: No Hx Arthritis: Yes Hx Headaches / Migraines: Yes Hx Seizures: Yes Hx Kidney Stones: No Hx Psychiatric Treatment: Yes (MD, ANXIETY, CHRONIC PAIN) Hx Asthma: Yes Hx COPD: Yes Hx Tuberculosis: No Hx Dementia: No Hx HIV: No Additional medical history: scoliosis, FIBROMYALGIA, Vertigo, OBESE; post menopausal - Surgical History Past Surgical History?: Yes Hx Coronary Stent: No Hx Open Heart Surgery: No Hx Pacemaker: No Hx Internal Defibrillator: No Hx Cholecystectomy: Yes Hx Appendectomy: Yes Hx Breast Surgery: No Additional Surgical History: Tubal ligation. NECK SURGERY 2016 - Family History Family history: no significant - Social History Smoking Status: Never Smoker Substance Use Type: None - Medications Home Medications: Home Medications Medication Instructions Recorded Confirmed Last Taken Type lisinopriL [Zestril TAB] 10 mg PO QDAY tablet 07/11/18 05/20/19 05/20/19 Rx Fluticasone/Salmeterol [Advair 1 each IH BID 10/11/18 05/20/19 05/20/19 History 500-50 Diskus] Cyclobenzaprine [Flexeril 10 MG 10 mg PO TID PRN 05/20/19 05/20/19 Unknown History TAB] Duloxetine HCl [Cymbalta] 60 mg PO QDAY 05/20/19 05/20/19 Unknown History Gabapentin 900 mg PO TID #90 capsule 05/24/19 Unknown Rx HYDROcodone/APAP 10-325 [[place] 1 each PO 5XD PRN #20 tablet 05/24/19 Unknown Rx 10-325 mg TAB] Pravastatin [Pravachol] 20 mg PO QHS #30 tablet 05/24/19 Unknown Rx metFORMIN [Glucophage] 500 mg PO BIDWM #60 tablet 05/24/19 Unknown Rx Minor Respiratory Exam - Exam General: Vital signs noted. No distress. Alert and acting appropriately. HEENT: Yes Moist Mucous Membranes, No Pharyngeal Erythema, No Pharyngeal Exudates, No Rhinorrhea, No Conjuctival Injection, No Frontal Tenderness, No Maxillary Tenderness Ear: Neither TM Bulge, Neither TM Erythema, Neither EAC Pain, Neither EAC Discharge Neck: Yes Supple, No Adenopathy Lungs: Yes Good Air Exchange, Yes Wheezes, No Ronchi, No Stridor, No Cough, No Labored Respirations, No Retractions, No Use of Accessory Muscles, No Other Abnormal Lung Sounds Heart: Yes Regular, No Murmur Abdomen: Yes Normal Bowel Sounds, No Tenderness, No Peritoneal Signs Skin: No Rash, No Edema Neurologic: Alert and oriented, no deficits. Musculoskeletal: Unremarkable. ED Course - Reevaluation(s) Reevaluation #1: 04/17/20 14:14 SAT 92 Reevaluation #2: home meds gabapen. lisinopril simvastatin metformin alejandra duloxetine norco 10 fluticasone ED Medical Decision Making - Lab Data Result diagrams: 04/17/20 Unknown 04/17/20 13:05 - EKG Data -: EKG Interpreted by Me EKG shows normal: sinus rhythm Rate: tachycardia - Radiology Data Radiology results: report reviewed, image reviewed interpreted by me: Bilateral infiltrates See report - Medical Decision Making Patient was given 2 duo nebs initially in [facility]. She was given Solu-Medrol IV. X-ray was noted. Based on x-ray findings of COVID work-up was pursued. There is no area of consolidation on the x-ray. Just diffuse disease. Patient had minimal improvement with the 2 DuoNeb's. She was given 2 g of mag IV. Oxygen saturation during my visits to the room to reevaluate the patient has been 92-94. She is tachycardic to 111. ABG noted- PaO2 71 on .21 A 4-minute walk test was completed by the RN. The patient became tachypneic to 30 resp/min and sats were 90-91. Patient was obviously short of breath. Patient was staffed with Dr. Jesus Labs noted Blood cultures x 2 UA without leuks/nitrates Lab Results 04/17/20 04/17/20 04/17/20 Range/Units 13:05 13:07 13:07 WBC (4.5-11.0) K/mm3 RBC (3.65-5.03) M/mm3 Hgb (10.1-14.3) gm/dl Hct (30.3-42.9) % MCV (79-97) fl MCH (28-32) pg MCHC (30-34) % RDW (13.2-15.2) % Plt Count (140-440) K/mm3 Lymph % (Auto) (13.4-35.0) % [place] % (Auto) (0.0-7.3) % Eos % (Auto) (0.0-4.3) % Baso % (Auto) (0.0-1.8) % Lymph # (1.2-5.4) K/mm3 [place] # (0.0-0.8) K/mm3 Eos # (0.0-0.4) K/mm3 Baso # (0.0-0.1) K/mm3 Seg Neutrophils % (40.0-70.0) % Seg Neutrophils # (1.8-7.7) K/mm3 D-Dimer (0-234) ng/mlDDU ABG pH (7.350-7.450) pH Units ABG pCO2 mm Hg ABG pO2 (80.0-90.0) mm Hg ABG HCO3 (20.0-26.0) mmol/L ABG O2 Saturation (95.0-99.0) % ABG O2 Content (0.0-44) ABG Base Excess (-2.0-3.0) mmol/L ABG Hemoglobin (12.0-16.0) gm/dl ABG Carboxyhemoglobin (0.0-5.0) % ABG Methemoglobin (0.0-1.5) % Oxyhemoglobin (95.0-99.0) % FiO2 % Sodium 142 (137-145) mmol/L Potassium 4.5 (3.6-5.0) mmol/L Chloride 104.6 (98-107) mmol/L Carbon Dioxide 25 (22-30) mmol/L Anion Gap 17 mmol/L BUN 14 (7-17) mg/dL Creatinine 0.7 (0.7-1.2) mg/dL Estimated GFR > 60 ml/min BUN/Creatinine Ratio 20 % Glucose 117 H (65-100) mg/dL Lactic Acid (0.7-2.0) mmol/L Calcium 8.6 (8.4-10.2) mg/dL Ferritin (13.0-400.0) ng/mL Total Bilirubin 0.30 (0.1-1.2) mg/dL AST 108 H (5-40) units/L ALT 98 H (7-56) units/L Alkaline Phosphatase 124 (35-129) units/L Lactate Dehydrogenase 305 H (91-180) units/L Troponin T < 0.010 (0.00-0.029) ng/mL C-Reactive Protein 0.50 (0.00-1.30) mg/dL NT-Pro-B Natriuret Pep 492.3 (0-900) pg/mL Total Protein 6.8 (6.3-8.2) g/dL Albumin 3.7 L (3.9-5) g/dL Albumin/Globulin Ratio 1.2 % Urine Color (Yellow) Urine Turbidity (Clear) Urine pH (5.0-7.0) Ur Specific [place] (1.003-1.030) Urine Protein (Negative) mg/dL Urine Glucose (UA) (Negative) mg/dL Urine Ketones (Negative) mg/dL Urine Blood (Negative) Urine Nitrite (Negative) Urine Bilirubin (Negative) Urine Urobilinogen (<2.0) mg/dL Ur Leukocyte Esterase (Negative) Urine WBC (Auto) (0.0-6.0) /HPF Urine RBC (Auto) (0.0-6.0) /HPF U Epithel Cells (Auto) (0-13.0) /HPF Urine Mucus /HPF 04/17/20 04/17/20 04/17/20 Range/Units 13:30 13:30 14:21 WBC (4.5-11.0) K/mm3 RBC (3.65-5.03) M/mm3 Hgb (10.1-14.3) gm/dl Hct (30.3-42.9) % MCV (79-97) fl MCH (28-32) pg MCHC (30-34) % RDW (13.2-15.2) % Plt Count (140-440) K/mm3 Lymph % (Auto) (13.4-35.0) % [place] % (Auto) (0.0-7.3) % Eos % (Auto) (0.0-4.3) % Baso % (Auto) (0.0-1.8) % Lymph # (1.2-5.4) K/mm3 [place] # (0.0-0.8) K/mm3 Eos # (0.0-0.4) K/mm3 Baso # (0.0-0.1) K/mm3 Seg Neutrophils % (40.0-70.0) % Seg Neutrophils # (1.8-7.7) K/mm3 D-Dimer 877.30 H (0-234) ng/mlDDU ABG pH (7.350-7.450) pH Units ABG pCO2 mm Hg ABG pO2 (80.0-90.0) mm Hg ABG HCO3 (20.0-26.0) mmol/L ABG O2 Saturation (95.0-99.0) % ABG O2 Content (0.0-44) ABG Base Excess (-2.0-3.0) mmol/L ABG Hemoglobin (12.0-16.0) gm/dl ABG Carboxyhemoglobin (0.0-5.0) % ABG Methemoglobin (0.0-1.5) % Oxyhemoglobin (95.0-99.0) % FiO2 % Sodium (137-145) mmol/L Potassium (3.6-5.0) mmol/L Chloride (98-107) mmol/L Carbon Dioxide (22-30) mmol/L Anion Gap mmol/L BUN (7-17) mg/dL Creatinine (0.7-1.2) mg/dL Estimated GFR ml/min BUN/Creatinine Ratio % Glucose (65-100) mg/dL Lactic Acid 2.10 H* (0.7-2.0) mmol/L Calcium (8.4-10.2) mg/dL Ferritin (13.0-400.0) ng/mL Total Bilirubin (0.1-1.2) mg/dL AST (5-40) units/L ALT (7-56) units/L Alkaline Phosphatase (35-129) units/L Lactate Dehydrogenase (91-180) units/L Troponin T (0.00-0.029) ng/mL C-Reactive Protein (0.00-1.30) mg/dL NT-Pro-B Natriuret Pep (0-900) pg/mL Total Protein (6.3-8.2) g/dL Albumin (3.9-5) g/dL Albumin/Globulin Ratio % Urine Color Yellow (Yellow) Urine Turbidity Slightly-cloudy (Clear) Urine pH 5.0 (5.0-7.0) Ur Specific [place] 1.012 (1.003-1.030) Urine Protein <15 mg/dl (Negative) mg/dL Urine Glucose (UA) Neg (Negative) mg/dL Urine Ketones Neg (Negative) mg/dL Urine Blood Neg (Negative) Urine Nitrite Neg (Negative) Urine Bilirubin Neg (Negative) Urine Urobilinogen < 2.0 (<2.0) mg/dL Ur Leukocyte Esterase Neg (Negative) Urine WBC (Auto) 6.0 (0.0-6.0) /HPF Urine RBC (Auto) < 1.0 (0.0-6.0) /HPF U Epithel Cells (Auto) 1.0 (0-13.0) /HPF Urine Mucus Few /HPF 04/17/20 04/17/20 04/17/20 Range/Units 14:25 14:47 Unknown WBC 8.4 (4.5-11.0) K/mm3 RBC 3.88 (3.65-5.03) M/mm3 Hgb 11.9 (10.1-14.3) gm/dl Hct 35.5 (30.3-42.9) % MCV 91 (79-97) fl MCH 31 (28-32) pg MCHC 34 (30-34) % RDW 13.5 (13.2-15.2) % Plt Count 321 (140-440) K/mm3 Lymph % (Auto) 29.2 (13.4-35.0) % [place] % (Auto) 9.1 H (0.0-7.3) % Eos % (Auto) 1.5 (0.0-4.3) % Baso % (Auto) 0.5 (0.0-1.8) % Lymph # 2.4 (1.2-5.4) K/mm3 [place] # 0.8 (0.0-0.8) K/mm3 Eos # 0.1 (0.0-0.4) K/mm3 Baso # 0.0 (0.0-0.1) K/mm3 Seg Neutrophils % 59.7 (40.0-70.0) % Seg Neutrophils # 5.0 (1.8-7.7) K/mm3 D-Dimer (0-234) ng/mlDDU ABG pH 7.373 (7.350-7.450) pH Units ABG pCO2 41.2 mm Hg ABG pO2 71.0 L (80.0-90.0) mm Hg ABG HCO3 23.5 (20.0-26.0) mmol/L ABG O2 Saturation 95.3 (95.0-99.0) % ABG O2 Content 15.2 (0.0-44) ABG Base Excess -1.7 (-2.0-3.0) mmol/L ABG Hemoglobin 11.4 L (12.0-16.0) gm/dl ABG Carboxyhemoglobin 1.1 (0.0-5.0) % ABG Methemoglobin 0.4 (0.0-1.5) % Oxyhemoglobin 93.9 L (95.0-99.0) % FiO2 21 % Sodium (137-145) mmol/L Potassium (3.6-5.0) mmol/L Chloride (98-107) mmol/L Carbon Dioxide (22-30) mmol/L Anion Gap mmol/L BUN (7-17) mg/dL Creatinine (0.7-1.2) mg/dL Estimated GFR ml/min BUN/Creatinine Ratio % Glucose (65-100) mg/dL Lactic Acid (0.7-2.0) mmol/L Calcium (8.4-10.2) mg/dL Ferritin 66.1 (13.0-400.0) ng/mL Total Bilirubin (0.1-1.2) mg/dL AST (5-40) units/L ALT (7-56) units/L Alkaline Phosphatase (35-129) units/L Lactate Dehydrogenase (91-180) units/L Troponin T (0.00-0.029) ng/mL C-Reactive Protein (0.00-1.30) mg/dL NT-Pro-B Natriuret Pep (0-900) pg/mL Total Protein (6.3-8.2) g/dL Albumin (3.9-5) g/dL Albumin/Globulin Ratio % Urine Color (Yellow) Urine Turbidity (Clear) Urine pH (5.0-7.0) Ur Specific [place] (1.003-1.030) Urine Protein (Negative) mg/dL Urine Glucose (UA) (Negative) mg/dL Urine Ketones (Negative) mg/dL Urine Blood (Negative) Urine Nitrite (Negative) Urine Bilirubin (Negative) Urine Urobilinogen (<2.0) mg/dL Ur Leukocyte Esterase (Negative) Urine WBC (Auto) (0.0-6.0) /HPF Urine RBC (Auto) (0.0-6.0) /HPF U Epithel Cells (Auto) (0-13.0) /HPF Urine Mucus /HPF Vital Signs 04/17/20 04/17/20 04/17/20 12:35 12:40 12:55 Temperature 99.6 F Pulse Rate 111 H 111 H 80 Pulse Rate [ Bilateral] Respiratory 13 Rate Respiratory Rate [Bilateral ] O2 Sat by Pulse 92 94 97 Oximetry 04/17/20 04/17/20 04/17/20 13:00 13:09 13:11 Temperature Pulse Rate 76 Pulse Rate [ 79 Bilateral] Respiratory 13 24 Rate Respiratory 24 Rate [Bilateral ] O2 Sat by Pulse 95 92 Oximetry 04/17/20 04/17/20 04/17/20 13:16 13:30 13:46 Temperature Pulse Rate 81 73 69 Pulse Rate [ Bilateral] Respiratory 15 11 L 13 Rate Respiratory Rate [Bilateral ] O2 Sat by Pulse 95 93 95 Oximetry 04/17/20 04/17/20 04/17/20 14:00 14:16 14:30 Temperature Pulse Rate 69 73 Pulse Rate [ Bilateral] Respiratory 11 L 17 13 Rate Respiratory Rate [Bilateral ] O2 Sat by Pulse 94 96 96 Oximetry 04/17/20 04/17/20 14:46 15:00 Temperature Pulse Rate 76 75 Pulse Rate [ Bilateral] Respiratory 16 23 Rate Respiratory Rate [Bilateral ] O2 Sat by Pulse 96 94 Oximetry Differentials 1. Acute coronary syndrome unlikely given normal cardiac cath less than a year ago. Heart failure is unlikely given normal EF less than 6 months ago. Patient has no appreciable JVD or lower extremity edema. There is no ascites. 2. Asthma acute exacerbation with or without infection-is at least a component of the patient's presentation to the ER today. 3. PE-patient has no history of pulmonary embolism. Although d-dimer slightly elevated she has no pleuritic chest pain; my index of suspicion is low for PE. She has no calf pain. Risk factor is obesity 4. COVID-patient is higher risk given her comorbidities: And recent exposures. Patient has not had a COVID test prior to today Given patient's comorbid conditions and her high risk for respiratory failure hospital medicine consulted for admission to rule out COVID and treat respiratory insufficiency Discussed with Dr Ernandez- pt will be admitted for further evaluation and management - Differential Diagnosis ASTHMA/PNA/COVID/CHF/AMI/PE Critical care attestation.: If time is entered above; I have spent that time in minutes in the direct care of this critically ill patient, excluding procedure time. ED Disposition Clinical Impression: Asthma with acute exacerbation, Person under investigation for COVID-19, Type 2 diabetes mellitus, Chronic pain syndrome, Hypoxia Disposition: OP ADMIT IP TO THIS HOSP Is pt being admited?: Yes Does the pt Need Aspirin: No Condition: Stable Time of Disposition: 12:36
--- NOTE | 2020-04-17 13:01 | XRay Report ---
CHEST 1 VIEW 04/17/2020 11:52 AM INDICATION / CLINICAL INFORMATION: Shortness of breath. History of asthma. COMPARISON: One view of the chest from 09/03/2019. FINDINGS: SUPPORT DEVICES: None. HEART / MEDIASTINUM: Normal heart size with central vascular congestion. LUNGS / PLEURA: Generalized increased bilateral pulmonary opacities are most notable along the left l jim base. No significant pleural effusion. No pneumothorax. ADDITIONAL FINDINGS: No significant additional findings. IMPRESSION: Suspected pulmonary edema/atelectasis. Please correlate with the clinical findings. Signer Name: Thang June MD Signed: 04/17/2020 12:57 PM Workstation Name: [id number]
[2020-04-17 13:15] LABS: Basophils % (Auto) 0.5 % (0.0-1.8); Eosinophils # (Auto) 0.1 K/mm3 (0.0-0.4); Eosinophils % (Auto) 1.5 % (0.0-4.3); Hematocrit 35.5 % (30.3-42.9); Hemoglobin 11.9 gm/dl (10.1-14.3); Lymphocytes # (Auto) 2.4 K/mm3 (1.2-5.4); Lymphocytes % (Auto) 29.2 % (13.4-35.0); Mean Corpuscular HGB Conc 34 % (30-34); Mean Corpuscular Volume 91 fl (79-97); Monocytes # (Auto) 0.8 K/mm3 (0.0-0.8); Monocytes % (Auto) 9.1 % (0.0-7.3); Platelet Count 321 K/mm3 (140-440); Red Blood Count 3.88 M/mm3 (3.65-5.03); Red Cell Distribution Width 13.5 % (13.2-15.2)
[2020-04-17] MEDS ORDERED: AZITHROMYCIN 500 MG in SODIUM CHLORIDE 0.9% 250ML 250 ML IV ONE (13:30)
[2020-04-17 13:40] LABS: Alanine Aminotransferase 98 units/L (7-56); Albumin 3.7 g/dL (3.9-5); BUN/Creatinine Ratio 20; Blood Urea Nitrogen 14 mg/dL (7-17); Calcium 8.6 mg/dL (8.4-10.2); Hemolysis Index 22
[2020-04-17] MEDS ORDERED: SODIUM CHLORIDE 0.9% 1000 ML 1,000 ML IV ONE (14:05)
[2020-04-17] MEDS ORDERED: SODIUM CHLORIDE 0.9% 1000 ML 1,000 ML ONE (14:06)
[2020-04-17 14:38] LABS: C-Reactive Protein 0.5 mg/dL (0.00-1.30)
[2020-04-17 14:41] LABS: ABG Base Excess -1.7 mmol/L (-2.0-3.0); ABG HCO3 23.5 mmol/L (20.0-26.0); ABG Methemoglobin 0.4 % (0.0-1.5); ABG Oxygen Saturation 95.3 % (95.0-99.0); ABG PCO2 41.2 mm Hg; ABG PH 7.373 pH Units (7.350-7.450)
[2020-04-17 14:46] LABS: Bilirubin,Urine NEG (Negative); Blood,Urine NEG (Negative); Color,Urine Yellow (Yellow); Mucus,Urine FEW /HPF; Protein,Urine <15 mg/dL mg/dL (Negative); RBC,Urine < 1.0 /HPF (0.0-6.0); Urobilinogen,Urine < 2.0 mg/dL (<2.0)
--- NOTE | 2020-04-17 16:33 | History and Physical Report ---
History of Present Illness Chief complaint: I cant breathe History of present illness: 54 YO Female with MO, Obesity Hypoventilation Syndrome, HTN, TIA, BPV, DM, GERD, OA, Migraine JARA, Seizure Disorder, Asthma, Fibromyalgia, LDD, Neuropathy, Chronic Pain Syndrome, CARLOS presents to ED for evaluation. Pt states that she has experienced shortness of breath, productive cough with yellow sputum, and subjective fever over the past 1 week with worsening symptoms over the past 3 days. Pt acknowledged known exposure to COVID 19. Patient also reports feeling generalized weakness, as well as lightheadedness and feeling as though she was going to pass out while at work. Pt transported to [facility] via private vehicle for further care and evaluation. Pt seen and evaluated in ED and found to have bilateral infiltrates on chest x-ray consistent with pneumonia, as well as pulse oximetry of 94% on room air which decreases to 88% with ambulation and exertion which is consistent with acute hypoxemic respiratory failure. The af orementioned findings are consistent with probable COVID-19 infection. The patient is admitted to medical floor and initiated on pneumonia protocol as well as COVID-19 protocol. Infectious disease service consulted in ED, pulmonology team consulted in ED. Patient denies chills, chest pain, palpitations, prolonged travel/immobility, individual/family history of DVT/PE/bleeding/blood clotting disorders, unilateral leg swelling. Prior admission on 05/20/2019 reviewed. All medication listed at time of admission has been reconciled. Past History Past Medical History: diabetes, GERD, hypertension, migraines, other (See HPI) Past Surgical History: appendectomy, cholecystectomy, Other (Tubal ligation, neck surgery) Social history: . denies: smoking, alcohol abuse, prescription drug abuse Family history: diabetes, hypertension Medications and Allergies Allergies Allergy/AdvReac Type Severity Reaction Status Date / Time pregabalin [From Lyrica] Allergy Unknown Verified 04/17/20 17:34 topiramate [From Topamax] Allergy Seizure Verified 04/17/20 17:34 shellfish Allergy Hives Uncoded 04/17/20 17:34 paragoric AdvReac Unknown Uncoded 04/17/20 17:34 Home Medications Medication Instructions Recorded Confirmed Last Taken Type lisinopriL [Zestril TAB] 10 mg PO QDAY tablet 07/11/18 04/17/20 05/20/19 Rx Fluticasone/Salmeterol [Advair 1 each IH BID 10/11/18 04/17/20 05/20/19 History 500-50 Diskus] Cyclobenzaprine [Flexeril 10 MG 10 mg PO TID PRN 05/20/19 04/17/20 Unknown History TAB] Duloxetine HCl [Cymbalta] 60 mg PO QDAY 05/20/19 04/17/20 Unknown History Gabapentin 900 mg PO TID #90 capsule 05/24/19 04/17/20 Unknown Rx HYDROcodone/APAP 10-325 [[place] 1 each PO 5XD PRN #20 tablet 05/24/19 04/17/20 Unknown Rx 10-325 mg TAB] Pravastatin [Pravachol] 20 mg PO QHS #30 tablet 05/24/19 04/17/20 Unknown Rx metFORMIN [Glucophage] 500 mg PO BIDWM #60 tablet 05/24/19 04/17/20 Unknown Rx Aspirin BABY CHEW TAB 81 mg PO QDAY 04/17/20 04/17/20 Unknown History Valsartan/Hydrochlorothiazide 1 each PO 04/17/20 Unknown History [Valsartan-Hctz 160-12.5 mg Tab] Active Meds: Active Medications Sodium Chloride (Sodium Chloride Flush Syringe 10 Ml) 10 ml IV BID CORNELIUS Sodium Chloride (Sodium Chloride Flush Syringe 10 Ml) 10 ml IV PRN PRN PRN Reason: LINE FLUSH Review of Systems Constitutional: fever, weakness, malaise, no weight loss, no weight gain, no chills, no sweats Ears, nose, mouth and throat: no ear pain, no ear discharge, no tinnitis, no decreased hearing, no nose pain Breasts: no change in shape, no swelling, no mass Cardiovascular: no chest pain, no orthopnea, no palpitations Respiratory: cough, cough with sputum, shortness of breath, no hemoptysis, no pain on inspiration Gastrointestinal: no abdominal pain, no nausea, no vomiting, no diarrhea, no constipation Genitourinary Female: no pelvic pain, no flank pain, no menorrhagia, no dysuria Rectal: no pain, no incontinence, no bleeding Musculoskeletal: no neck stiffness, no neck pain, no shooting arm pain, no arm numbness/tingling, no low back pain Integumentary: no rash, no pruritis, no redness, no sores, no wounds Neurological: no paralysis, no weakness, no parathesias, no numbness, no tingling, no seizures Psychiatric: no anxiety, no memory loss, no change in sleep habits, no sleep disturbances, no insomnia, no change in appetite, no change in libido, no suicidal ideation Endocrine: no cold intolerance, no heat intolerance, no polyphagia, no excessive thirst, no polydipsia, no polyuria, no nocturia Hematologic/Lymphatic: no easy bruising, no easy bleeding, no lymphadenopathy, no lymphedema Allergic/Immunologic: no urticaria, no allergic rhinitis, no wheezing, no persistent infections, no anaphylaxis, no angioedema Exam - Constitutional Vitals: Temp Pulse Resp BP Pulse Ox 99.6 F 75 23 94 04/17/20 12:35 04/17/20 15:00 04/17/20 15:00 04/17/20 15:00 General appearance: Present: mild distress, obese - EENT Eyes: Present: PERRL ENT: hearing intact, clear oral mucosa - Neck Neck: Present: supple, normal ROM - Respiratory Respiratory effort: labored Respiratory: bilateral: diminished, rhonchi - Cardiovascular Heart Sounds: Present: S1 & S2. Absent: rub, click - Extremities Extremities: pulses symmetrical, No edema Peripheral Pulses: within normal limits - Abdominal General gastrointestinal: Present: soft, non-tender, non-distended, normal bowel sounds Female genitourinary: Present: normal - Integumentary Integumentary: Present: clear, warm, dry - Musculoskeletal Musculoskeletal: generalized weakness - Psychiatric Psychiatric: appropriate mood/affect, intact judgment & insight - Neurologic Neurologic: CNII-XII intact, moves all extremities HEART Score - HEART Score Troponin: Troponin T < 0.010 ng/mL (0.00-0.029) 04/17/20 13:07 Results - Labs CBC & Chem 7: 04/17/20 Unknown 04/17/20 13:05 Labs: Abnormal lab results 04/17/20 04/17/20 04/17/20 Range/Units 13:05 13:07 13:30 [place] % (Auto) (0.0-7.3) % D-Dimer (0-234) ng/mlDDU ABG pO2 (80.0-90.0) mm Hg ABG Hemoglobin (12.0-16.0) gm/dl Oxyhemoglobin (95.0-99.0) % Glucose 117 H (65-100) mg/dL Lactic Acid 2.10 H* (0.7-2.0) mmol/L AST 108 H (5-40) units/L ALT 98 H (7-56) units/L Lactate Dehydrogenase 305 H (91-180) units/L Albumin 3.7 L (3.9-5) g/dL 04/17/20 04/17/20 04/17/20 Range/Units 13:30 14:25 Unknown [place] % (Auto) 9.1 H (0.0-7.3) % D-Dimer 877.30 H (0-234) ng/mlDDU ABG pO2 71.0 L (80.0-90.0) mm Hg ABG Hemoglobin 11.4 L (12.0-16.0) gm/dl Oxyhemoglobin 93.9 L (95.0-99.0) % Glucose (65-100) mg/dL Lactic Acid (0.7-2.0) mmol/L AST (5-40) units/L ALT (7-56) units/L Lactate Dehydrogenase (91-180) units/L Albumin (3.9-5) g/dL Assessment and Plan - Patient Problems (1) Acute respiratory failure with hypoxia Current Visit: No Status: Acute Plan to address problem: Chest x-ray, supplemental oxygen, pulse oximetry, supportive care, noninvasive positive pressure ventilation as clinically indicated. Pulmonary team consulted in ED. (2) Pneumonia Current Visit: Yes Status: Acute Qualifiers: Laterality: bilateral Plan to address problem: Pneumonia protocol: Chest x-ray, IV antibiotic therapy, IV fluid resuscitation therapy, supplemental oxygen, pulse oximetry. (3) Person under investigation for COVID-19 Current Visit: Yes Status: Acute Plan to address problem: COVID-19 protocol: Infectious disease consulted in ED, pulmonary consulted in ED, coronavirus PCR sent in emergency department. Prone ventilation while in bed, submental oxygen, supportive care. (4) Diabetes Current Visit: No Status: Acute Plan to address problem: Sliding scale insulin therapy, consistent carbohydrate diet, Accu-Chek, hypoglycemia protocol. (5) GERD (gastroesophageal reflux disease) Current Visit: Yes Status: Acute Qualifiers: Esophagitis presence: without esophagitis Qualified Code(s): K21.9 - Gastro-esophageal reflux disease without esophagitis Plan to address problem: PPI therapy, supportive care. Outpatient GI follow-up (6) Migraine Current Visit: Yes Status: Acute Qualifiers: Migraine type: with aura Plan to address problem: Supportive care, no migraine activity at this time. (7) Seizure disorder Current Visit: Yes Status: Acute Plan to address problem: No seizure activity at this time, Ativan as needed, supportive care., Seizure precautions (8) Chronic pain syndrome Current Visit: Yes Status: Acute Plan to address problem: Pain control, continue narcotic therapy, supportive care. (9) Neuropathy Current Visit: Yes Status: Acute Plan to address problem: Continue Neurontin, supportive care, pain control. (10) DVT prophylaxis Current Visit: No Status: Acute Plan to address problem: SCD to bilateral lower extremities while in bed, patient is ambulatory
[2020-04-17] MEDS ORDERED: HYDROcodone/ACETAMINOPHEN 10-325MG TAB PO PRN ×2 (16:37→16:45)
[2020-04-17] MEDS ORDERED: CYCLOBENZAPRINE 10 MG TAB PO PRN (16:37)
--- NOTE | 2020-04-17 19:24 | Event Note ---
Date: 04/17/20 Call from Robert from lab states that patient's lactic acid is 3.0. This provider informed Dr. Awais saldanaist who is now patient is under.
[2020-04-17] MEDS ORDERED: SALMETEROL IH SCH (22:00)
[2020-04-17] MEDS ORDERED: FLUTICASONE IH SCH (22:00)
[2020-04-17] MEDS: GABAPENTIN 300 MG CAP PO SCH (22:28)
[2020-04-17] MEDS: PRAVASTATIN 20 MG TAB PO SCH (22:29)
[2020-04-17] MEDS: HEPARIN 5,000 UNIT/1 ML VIAL SUB-Q SCH (22:29)
[2020-04-17] MEDS: ARFORMOTEROL 15 MCG/2 ML NEBU IH SCH (23:02)
[2020-04-17] MEDS: BUDESONIDE 0.5 MG/2 ML NEBU IH SCH (23:02)
[2020-04-18] MEDS: cefTRIAXone/NS 2 GM/100 ML 2 GM/100 ML BAG IV SCH ×2 (01:00→09:28)
[2020-04-18] MEDS: SODIUM CHLORIDE 0.9% 1000 ML 1,000 ML IV SCH ×2 (01:34→15:57)
[2020-04-18 02:51] LABS: Basophils % (Auto) 0.1 % (0.0-1.8); Hemoglobin 12.3 gm/dl (10.1-14.3); Lymphocytes # (Auto) 0.9 K/mm3 (1.2-5.4); Lymphocytes % (Auto) 9.7 % (13.4-35.0); Mean Corpuscular HGB Conc 33 % (30-34); Mean Corpuscular Volume 90 fl (79-97); Monocytes # (Auto) 0.2 K/mm3 (0.0-0.8); Monocytes % (Auto) 2.3 % (0.0-7.3); Platelet Count 307 K/mm3 (140-440); Red Blood Count 4.13 M/mm3 (3.65-5.03); Red Cell Distribution Width 13.5 % (13.2-15.2)
[2020-04-18 03:08] LABS: Alanine Aminotransferase 98 units/L (7-56); BUN/Creatinine Ratio 17; Blood Urea Nitrogen 12 mg/dL (7-17); Calcium 8.5 mg/dL (8.4-10.2); Hemolysis Index 1
[2020-04-18] MEDS: GABAPENTIN 300 MG CAP PO SCH ×3 (08:21→21:58)
[2020-04-18] MEDS: HEPARIN 5,000 UNIT/1 ML VIAL SUB-Q SCH ×2 (09:28→21:58)
[2020-04-18] MEDS: DULoxetine 30 MG CAP PO SCH (09:29)
[2020-04-18] MEDS: ASPIRIN 81 MG TAB CHEW PO SCH (09:29)
[2020-04-18] MEDS: LISINOPRIL 10 MG TAB PO SCH (09:31)
[2020-04-18] MEDS ORDERED: cefTRIAXone/NS 2 GM/100 ML 2 GM/100 ML BAG IV SCH (10:00)
[2020-04-18] MEDS ORDERED: AZITHROMYCIN 500 MG in SODIUM CHLORIDE 0.9% 250ML 250 ML IV SCH (10:00)
[2020-04-18] MEDS ORDERED: NON-FORMULARY EACH (Duloxetine Hcl [Cymbalta] 60 MG) PO SCH (10:00)
[2020-04-18] MEDS: BUDESONIDE 0.5 MG/2 ML NEBU IH SCH ×2 (11:48→20:27)
[2020-04-18] MEDS: ARFORMOTEROL 15 MCG/2 ML NEBU IH SCH ×2 (11:48→20:27)
--- NOTE | 2020-04-18 13:09 | Event Note ---
Date: 04/18/20 Consult for COVDHEERAJ NAGY, however patient appears to be stable on room air. She has been to this institution several times before with shortness of breath from asthma. Last time a syruper saw her was in 2016 (Dr. Lepe). Currently no recs to offer. If patient needs steroids would give them for asthma exacerbation. Can follow up ID recs as well. Otherwise will sign off. Call if questions.
--- NOTE | 2020-04-18 14:31 | Progress Note ---
Assessment and Plan - Patient Problems (1) Acute respiratory failure with hypoxia Current Visit: No Status: Acute Plan to address problem: Chest x-ray, supplemental oxygen, pulse oximetry, supportive care, noninvasive positive pressure ventilation as clinically indicated. Pulmonary team consulted in ED.Treat Pneumonia, Incentive spirometry. (2) Pneumonia Current Visit: Yes Status: Acute Qualifiers: Laterality: bilateral Plan to address problem: Pneumonia protocol: Chest x-ray, IV antibiotic therapy, IV fluid resuscitation therapy, supplemental oxygen, pulse oximetry. (3) Person under investigation for COVID-19 Current Visit: Yes Status: Acute Plan to address problem: COVID-19 PCR negative, (4) Diabetes Current Visit: No Status: Acute Plan to address problem: Sliding scale insulin therapy, consistent carbohydrate diet, Accu-Chek, hypoglycemia protocol. (5) GERD (gastroesophageal reflux disease) Current Visit: Yes Status: Acute Qualifiers: Esophagitis presence: without esophagitis Qualified Code(s): K21.9 - Gastro-esophageal reflux disease without esophagitis Plan to address problem: PPI therapy, supportive care. Outpatient GI follow-up (6) Migraine Current Visit: Yes Status: Acute Qualifiers: Migraine type: with aura Plan to address problem: Supportive care, no migraine activity at this time. (7) Seizure disorder Current Visit: Yes Status: Acute Plan to address problem: No seizure activity at this time, Ativan as needed, supportive care., Seizure precautions (8) Chronic pain syndrome Current Visit: Yes Status: Acute Plan to address problem: Pain control, continue narcotic therapy, supportive care. (9) Neuropathy Current Visit: Yes Status: Acute Plan to address problem: Continue Neurontin, supportive care, pain control. (10) DVT prophylaxis Current Visit: No Status: Acute Plan to address problem: SCD to bilateral lower extremities while in bed, patient is ambulatory History Interval history: 54 YO Female HD #2 with Bilateral Pneumonia, Acute Hypoxemic Respiratory Failure, Suspected Covid 19, DM, GERD. Pt acknowledges mild improvement in symptoms overnight. Pt denies pain, fever, chills, CP, Palpitations, NVD. Coronavirus PCR is nagative. Hospitalist Physical - Constitutional Vitals: Temp Pulse Resp BP Pulse Ox 98.5 F 76 24 173/99 92 04/18/20 11:05 04/18/20 11:05 04/18/20 11:05 04/18/20 11:05 04/18/20 11:05 General appearance: Present: mild distress, obese - EENT Eyes: Present: PERRL, EOM intact ENT: hearing intact - Neck Neck: Present: supple - Respiratory Respiratory: bilateral: diminished - Cardiovascular Rhythm: regular Heart Sounds: Present: S1 & S2 - Extremities Extremities: no ischemia Peripheral Pulses: within normal limits - Abdominal General gastrointestinal: soft, non-tender, non-distended - Integumentary Integumentary: Present: clear, warm, dry - Psychiatric Psychiatric: appropriate mood/affect, cooperative - Neurologic Neurologic: CNII-XII intact HEART Score - HEART Score Troponin: Troponin T < 0.010 ng/mL (0.00-0.029) 04/17/20 13:07 Results - Labs CBC & Chem 7: 04/18/20 02:41 04/18/20 02:41 Labs: Laboratory Last Values WBC 8.8 K/mm3 (4.5-11.0) 04/18/20 02:41 RBC 4.13 M/mm3 (3.65-5.03) 04/18/20 02:41 Hgb 12.3 gm/dl (10.1-14.3) 04/18/20 02:41 Hct 37.0 % (30.3-42.9) 04/18/20 02:41 MCV 90 fl (79-97) 04/18/20 02:41 MCH 30 pg (28-32) 04/18/20 02:41 MCHC 33 % (30-34) 04/18/20 02:41 RDW 13.5 % (13.2-15.2) 04/18/20 02:41 Plt Count 307 K/mm3 (140-440) 04/18/20 02:41 Lymph % (Auto) 9.7 % (13.4-35.0) L 04/18/20 02:41 Mora % (Auto) 2.3 % (0.0-7.3) 04/18/20 02:41 Eos % (Auto) 0.0 % (0.0-4.3) 04/18/20 02:41 Baso % (Auto) 0.1 % (0.0-1.8) 04/18/20 02:41 Lymph # 0.9 K/mm3 (1.2-5.4) L 04/18/20 02:41 Mora # 0.2 K/mm3 (0.0-0.8) 04/18/20 02:41 Eos # 0.0 K/mm3 (0.0-0.4) 04/18/20 02:41 Baso # 0.0 K/mm3 (0.0-0.1) 04/18/20 02:41 Seg Neutrophils % 87.9 % (40.0-70.0) H 04/18/20 02:41 Seg Neutrophils # 7.8 K/mm3 (1.8-7.7) H 04/18/20 02:41 D-Dimer 877.30 ng/mlDDU (0-234) H 04/17/20 13:30 ABG pH 7.373 pH Units (7.350-7.450) 04/17/20 14:25 ABG pCO2 41.2 mm Hg 04/17/20 14:25 ABG pO2 71.0 mm Hg (80.0-90.0) L 04/17/20 14:25 ABG HCO3 23.5 mmol/L (20.0-26.0) 04/17/20 14:25 ABG O2 Saturation 95.3 % (95.0-99.0) 04/17/20 14:25 ABG O2 Content 15.2 (0.0-44) 04/17/20 14:25 ABG Base Excess -1.7 mmol/L (-2.0-3.0) 04/17/20 14:25 ABG Hemoglobin 11.4 gm/dl (12.0-16.0) L 04/17/20 14:25 ABG Carboxyhemoglobin 1.1 % (0.0-5.0) 04/17/20 14:25 ABG Methemoglobin 0.4 % (0.0-1.5) 04/17/20 14:25 Oxyhemoglobin 93.9 % (95.0-99.0) L 04/17/20 14:25 FiO2 21 % 04/17/20 14:25 Sodium 139 mmol/L (137-145) 04/18/20 02:41 Potassium 4.8 mmol/L (3.6-5.0) 04/18/20 02:41 Chloride 101.0 mmol/L (98-107) 04/18/20 02:41 Carbon Dioxide 24 mmol/L (22-30) 04/18/20 02:41 Anion Gap 19 mmol/L 04/18/20 02:41 BUN 12 mg/dL (7-17) 04/18/20 02:41 Creatinine 0.7 mg/dL (0.7-1.2) 04/18/20 02:41 Estimated GFR > 60 ml/min 04/18/20 02:41 BUN/Creatinine Ratio 17 % 04/18/20 02:41 Glucose 205 mg/dL (65-100) H 04/18/20 02:41 Lactic Acid 1.90 mmol/L (0.7-2.0) 04/18/20 07:54 Calcium 8.5 mg/dL (8.4-10.2) 04/18/20 02:41 Ferritin 66.1 ng/mL (13.0-400.0) 04/17/20 14:47 Total Bilirubin 0.20 mg/dL (0.1-1.2) 04/18/20 02:41 AST 60 units/L (5-40) H 04/18/20 02:41 ALT 98 units/L (7-56) H 04/18/20 02:41 Alkaline Phosphatase 133 units/L (35-129) H 04/18/20 02:41 Lactate Dehydrogenase 305 units/L (91-180) H 04/17/20 13:07 Troponin T < 0.010 ng/mL (0.00-0.029) 04/17/20 13:07 C-Reactive Protein 0.50 mg/dL (0.00-1.30) 04/17/20 13:07 NT-Pro-B Natriuret Pep 492.3 pg/mL (0-900) 04/17/20 13:07 Total Protein 7.3 g/dL (6.3-8.2) 04/18/20 02:41 Albumin 4.0 g/dL (3.9-5) 04/18/20 02:41 Albumin/Globulin Ratio 1.2 % 04/18/20 02:41 Urine Color Yellow (Yellow) 04/17/20 14:21 Urine Turbidity Slightly-cloudy (Clear) 04/17/20 14:21 Urine pH 5.0 (5.0-7.0) 04/17/20 14:21 Ur Specific [place] 1.012 (1.003-1.030) 04/17/20 14:21 Urine Protein <15 mg/dl mg/dL (Negative) 04/17/20 14:21 Urine Glucose (UA) Neg mg/dL (Negative) 04/17/20 14:21 Urine Ketones Neg mg/dL (Negative) 04/17/20 14:21 Urine Blood Neg (Negative) 04/17/20 14:21 Urine Nitrite Neg (Negative) 04/17/20 14:21 Urine Bilirubin Neg (Negative) 04/17/20 14:21 Urine Urobilinogen < 2.0 mg/dL (<2.0) 04/17/20 14:21 Ur Leukocyte Esterase Neg (Negative) 04/17/20 14:21 Urine WBC (Auto) 6.0 /HPF (0.0-6.0) 04/17/20 14:21 Urine RBC (Auto) < 1.0 /HPF (0.0-6.0) 04/17/20 14:21 U Epithel Cells (Auto) 1.0 /HPF (0-13.0) 04/17/20 14:21 Urine Mucus Few /HPF 04/17/20 14:21 Coronavirus (PCR) Negative (Negative) 04/17/20 Unknown Microbiology: Microbiology 04/17/20 13:30 Peripheral/Venous Blood Culture - Preliminary Culture in Progress 04/17/20 13:30 Peripheral/Venous Blood Culture - Preliminary Culture in Progress Aviles/IV: IV Catheter Type [Right INT / Saline Lock Forearm] Active Medications - Current Medications Current Medications: Generic Name Dose Route Start Last Admin Trade Name Freq PRN Reason Stop Dose Admin Acetaminophen/Hydrocodone Bitart 1 each 04/17/20 16:45 04/17/20 22:29 [place] 10/325 PO 1 each 5XD PRN Administration Pain, Moderate (4-6) Arformoterol Tartrate 15 mcg 04/17/20 20:00 04/18/20 11:48 Brovana Nebu IH 15 mcg Q12HRT CORNELIUS Administration Aspirin 81 mg 04/18/20 10:00 04/18/20 09:29 Baby Aspirin PO 81 mg QDAY CORNELIUS Administration Azithromycin 500 mg 04/19/20 10:00 Zithromax PO QDAY CORNELIUS Budesonide 0.5 mg 04/17/20 20:00 06/17/20 11:48 Pulmicort IH 0.5 mg Q12HRT CORNELIUS Administration Cyclobenzaprine HCl 10 mg 04/17/20 16:37 Flexeril PO TID PRN Muscle Spasm Duloxetine HCl 60 mg 04/18/20 10:00 04/18/20 09:29 Cymbalta PO 60 mg QDAY CORNELIUS Administration Gabapentin 900 mg 04/17/20 20:00 04/18/20 13:50 Gabapentin PO 900 mg TID CORNELIUS Administration Heparin Sodium (Porcine) 5,000 unit 04/17/20 22:00 04/18/20 09:28 Heparin SUB-Q 5,000 unit Q12HR CORNELIUS Administration Azithromycin 500 mg/ Sodium 250 mls @ 250 mls/hr 04/18/20 10:00 04/18/20 10:20 Chloride IV 04/18/20 18:00 250 mls/hr Q24HR CORNELIUS Administration Protocol Ceftriaxone Sodium 2 gm in 100 mls @ 200 mls/hr 04/18/20 01:00 04/18/20 09:28 Rocephin/Ns 2 Gm/100 Ml IV 200 mls/hr Q24HR CORNELIUS Administration Protocol Sodium Chloride 1,000 mls @ 75 mls/hr 04/18/20 01:00 04/18/20 01:34 Nacl 0.9% 1000 Ml IV 75 mls/hr DIRECT CORNELIUS Administration Lisinopril 10 mg 04/18/20 10:00 04/18/20 09:31 Zestril PO 10 mg QDAY CORNELIUS Administration Pravastatin Sodium 20 mg 04/17/20 22:00 04/17/20 22:29 Pravachol PO 20 mg QHS CORNELIUS Administration Sodium Chloride 10 ml 04/17/20 22:00 04/18/20 09:29 Sodium Chloride Flush Syringe 10 Ml IV 10 ml BID CORNELIUS Administration Sodium Chloride 10 ml 04/17/20 16:26 Sodium Chloride Flush Syringe 10 Ml IV PRN PRN LINE FLUSH
--- NOTE | 2020-04-18 15:18 | Consultation ---
History of Present Illness - Reason for Consult Consult date: 04/18/20 - History of Present Illness 54-year-old female past medical history obesity, hypertension diabetes, asthma, fibromyalgia, generalized anxiety admitted to the hospital complaining of shortness of breath and productive cough. She also notes the symptoms are associated with subjective fevers at home. She notes that began approximately a week prior to admission, and acutely worsened over the past 3 days. She does have a known exposure to COVID-19. She has not been hypoxic with ambulation and exertion, and as such was admitted. There is concern for COVID-19, COVID-19 testing was acquired and was negative. Afebrile since admission with a normal white count. Currently receiving ceftriaxone and azithromycin. Blood cultures currently pending. COVID-19 testing negative. Imaging personally reviewed: Chest x-ray: Pulmonary edema and atelectasis. Review of Systems: Bold if positive, otherwise negative General: fevers, chills, rigors HEENT: visual disturbance, diplopia, eye pain Respiratory: cough, sputum, hemoptysis, shortness of breath Cardiovascular: chest pain, syncope Gastrointestinal: nausea, vomiting, diarrhea, abdominal pain Genitourinary: dysuria, hematuria, flank pain Musculoskeletal: neck pain, back pain, joint pain, edema Neurologic: headaches, seizures Hematologic: easy bruising or bleeding Endocrine: night sweats, acute weight loss Skin: rash, jaundice, redness Psychiatric: suicidal, homicidal ideation Past History Past Medical History: diabetes, GERD, hypertension, migraines, other (See HPI) Past Surgical History: appendectomy, cholecystectomy, Other (Tubal ligation, neck surgery) Social history: . denies: smoking, alcohol abuse, prescription drug abuse Family history: diabetes, hypertension Medications and Allergies Allergies Allergy/AdvReac Type Severity Reaction Status Date / Time pregabalin [From Lyrica] Allergy Unknown Verified 04/17/20 17:34 topiramate [From Topamax] Allergy Seizure Verified 04/17/20 17:34 shellfish Allergy Hives Uncoded 04/17/20 17:34 paragoric AdvReac Unknown Uncoded 04/17/20 17:34 Home Medications Medication Instructions Recorded Confirmed Last Taken Type lisinopriL [Zestril TAB] 10 mg PO QDAY tablet 07/11/18 04/17/20 05/20/19 Rx Fluticasone/Salmeterol [Advair 1 each IH BID 10/11/18 04/17/20 05/20/19 History 500-50 Diskus] Cyclobenzaprine [Flexeril 10 MG 10 mg PO TID PRN 05/20/19 04/17/20 Unknown History TAB] Duloxetine HCl [Cymbalta] 60 mg PO QDAY 05/20/19 04/17/20 Unknown History Gabapentin 900 mg PO TID #90 capsule 05/24/19 04/17/20 Unknown Rx HYDROcodone/APAP 10-325 [[place] 1 each PO 5XD PRN #20 tablet 05/24/19 04/17/20 Unknown Rx 10-325 mg TAB] Pravastatin [Pravachol] 20 mg PO QHS #30 tablet 05/24/19 04/17/20 Unknown Rx metFORMIN [Glucophage] 500 mg PO BIDWM #60 tablet 05/24/19 04/17/20 Unknown Rx Aspirin BABY CHEW TAB 81 mg PO QDAY 04/17/20 04/17/20 Unknown History Valsartan/Hydrochlorothiazide 1 each PO DAILY 04/17/20 04/18/20 Unknown History [Valsartan-Hctz 160-12.5 mg Tab] Active Meds: Active Medications Acetaminophen/Hydrocodone Bitart ([place] 10/325) 1 each PO 5XD PRN PRN Reason: Pain, Moderate (4-6) Last Admin: 04/17/20 22:29 Dose: 1 each Documented by: Arformoterol Tartrate (Brovana Nebu) 15 mcg IH Q12HRT [facility] Last Admin: 04/18/20 11:48 Dose: 15 mcg Documented by: Aspirin (Baby Aspirin) 81 mg PO QDAY [facility] Last Admin: 04/18/20 09:29 Dose: 81 mg Documented by: Azithromycin (Zithromax) 500 mg PO QDAY [facility] Budesonide (Pulmicort) 0.5 mg IH Q12HRT [facility] Last Admin: 04/18/20 11:48 Dose: 0.5 mg Documented by: Cyclobenzaprine HCl (Flexeril) 10 mg PO TID PRN PRN Reason: Muscle Spasm Duloxetine HCl (Cymbalta) 60 mg PO QDAY [facility] Last Admin: 04/18/20 09:29 Dose: 60 mg Documented by: Gabapentin (Gabapentin) 900 mg PO TID [facility] Last Admin: 04/18/20 13:50 Dose: 900 mg Documented by: Heparin Sodium (Porcine) (Heparin) 5,000 unit SUB-Q Q12HR CORNELIUS Last Admin: 04/18/20 09:28 Dose: 5,000 unit Documented by: Azithromycin 500 mg/ Sodium (Chloride) 250 mls @ 250 mls/hr IV Q24HR CORNELIUS; Protocol Stop: 04/18/20 18:00 Last Admin: 04/18/20 10:20 Dose: 250 mls/hr Documented by: Ceftriaxone Sodium (Rocephin/Ns 2 Gm/100 Ml) 2 gm in 100 mls @ 200 mls/hr IV Q24HR CORNELIUS; Protocol Last Admin: 04/18/20 09:28 Dose: 200 mls/hr Documented by: Sodium Chloride (Nacl 0.9% 1000 Ml) 1,000 mls @ 75 mls/hr IV DIRECT CORNELIUS Last Admin: 04/18/20 01:34 Dose: 75 mls/hr Documented by: Lisinopril (Zestril) 10 mg PO QDAY [facility] Last Admin: 04/18/20 09:31 Dose: 10 mg Documented by: Pravastatin Sodium (Pravachol) 20 mg PO QHS [facility] Last Admin: 04/17/20 22:29 Dose: 20 mg Documented by: Sodium Chloride (Sodium Chloride Flush Syringe 10 Ml) 10 ml IV BID [facility] Last Admin: 04/18/20 09:29 Dose: 10 ml Documented by: Sodium Chloride (Sodium Chloride Flush Syringe 10 Ml) 10 ml IV PRN PRN PRN Reason: LINE FLUSH Physical Examination - Physical Exam Narrative exam: Physical exam deferred due to PPE conservation strategy. Please refer to primary team's note for physical exam - Constitutional Vitals: Vital Signs Temp Pulse Resp BP Pulse Ox 98.5 F 76 24 173/99 92 04/18/20 11:05 04/18/20 11:05 04/18/20 11:05 04/18/20 11:05 04/18/20 11:05 Temperature -Last 24 Hours Temperature 98.5 F Temperature 98.1 F Temperature 98.4 F Results - Labs CBC & Chem 7: 04/18/20 02:41 04/18/20 02:41 Labs: Abnormal lab results 04/17/20 04/17/20 04/17/20 Range/Units 17:18 18:58 23:41 Lymph % (Auto) (13.4-35.0) % Lymph # (1.2-5.4) K/mm3 Seg Neutrophils % (40.0-70.0) % Seg Neutrophils # (1.8-7.7) K/mm3 Glucose (65-100) mg/dL Lactic Acid 2.50 H* 3.00 H* 3.70 H* (0.7-2.0) mmol/L AST (5-40) units/L ALT (7-56) units/L Alkaline Phosphatase (35-129) units/L 04/18/20 04/18/20 Range/Units 02:41 02:41 Lymph % (Auto) 9.7 L (13.4-35.0) % Lymph # 0.9 L (1.2-5.4) K/mm3 Seg Neutrophils % 87.9 H (40.0-70.0) % Seg Neutrophils # 7.8 H (1.8-7.7) K/mm3 Glucose 205 H (65-100) mg/dL Lactic Acid (0.7-2.0) mmol/L AST 60 H (5-40) units/L ALT 98 H (7-56) units/L Alkaline Phosphatase 133 H (35-129) units/L Assessment and Plan Cultures: Blood culture 04/17/2020 pending A/P: 54-year-old female past medical history obesity, hypertension diabetes, asthma, fibromyalgia, generalized anxiety admitted with concern for COVID-19 #Shortness of breath: Is stable on room air at present time. She frequently has asthma attacks without any shortness of breath. COVID-19 testing negative, chest x-ray with atelectasis/pulmonary edema. Order procalcitonin, continue antibiotics for now given symptoms of productive cough, but okay to stop if procalcitonin normal. #Generalized anxiety: May be contributing to the symptoms. #Asthma: Frequent asthma exacerbations, currently stable on room air. #Diabetes: Tight glycemic control Recs: -Continue empiric ceftriaxone and azithromycin for now -Follow-up procalcitonin, stop antibiotics if blood negative -Patient on room air, likely no need to retest for COVID-19 Thank you for the consult, we will continue to follow. G. MD [facility] ([facility]) M: [phone] O: [phone] F: [phone]
[2020-04-18] MEDS: PRAVASTATIN 20 MG TAB PO SCH (21:58)
[2020-04-19] MEDS: SODIUM CHLORIDE 0.9% 1000 ML 1,000 ML IV SCH (07:22)
[2020-04-19] MEDS: BUDESONIDE 0.5 MG/2 ML NEBU IH SCH (07:51)
[2020-04-19] MEDS: ARFORMOTEROL 15 MCG/2 ML NEBU IH SCH (07:51)
[2020-04-19] MEDS: GABAPENTIN 300 MG CAP PO SCH ×2 (08:43→13:58)
[2020-04-19] MEDS: DULoxetine 30 MG CAP PO SCH (09:01)
[2020-04-19] MEDS: ASPIRIN 81 MG TAB CHEW PO SCH (09:01)
[2020-04-19] MEDS: HEPARIN 5,000 UNIT/1 ML VIAL SUB-Q SCH (09:01)
[2020-04-19] MEDS: LISINOPRIL 10 MG TAB PO SCH (09:08)
[2020-04-19] MEDS ORDERED: AZITHROMYCIN 250 MG TAB PO SCH (10:00)
--- NOTE | 2020-04-19 11:10 | Progress Note ---
Assessment and Plan Cultures: Blood culture 04/17/2020 pending A/P: 54-year-old female past medical history obesity, hypertension diabetes, asthma, fibromyalgia, generalized anxiety admitted with concern for COVID-19 #Shortness of breath: Is stable on room air at present time. She frequently has asthma attacks without any shortness of breath. COVID-19 testing negative, chest x-ray with atelectasis/pulmonary edema. Order procalcitonin, continue antibiotics for now given symptoms of productive cough, but okay to stop if procalcitonin normal. #Generalized anxiety: May be contributing to the symptoms. #Asthma: Frequent asthma exacerbations, currently stable on room air. #Diabetes: Tight glycemic control Recs: -Continue empiric ceftriaxone and azithromycin for now -Follow-up procalcitonin, stop antibiotics if blood negative. Pending from this AM still? -Patient on room air, likely no need to retest for COVID-19 Thank you for the consult, we will continue to follow. Shantal Krause MD [facility] ([facility]) M: [phone] O: [phone] F: [phone] Subjective Date of service: 04/19/20 Interval history: Afebrile with a normal white count. Objective - Exam Narrative Exam: Physical exam deferred due to PPE conservation strategy. Please refer to primary team's note for physical exam - Constitutional Vitals: Vital Signs Temp Pulse Resp BP Pulse Ox 97.3 F L 70 20 145/85 93 04/19/20 04:00 04/19/20 09:08 04/19/20 08:47 04/19/20 09:08 04/19/20 07:59 Temperature -Last 24 Hours Temperature 97.3 F Temperature 97.3 F Temperature 98.4 F Temperature 98.5 F - Labs CBC & Chem 7: 04/18/20 02:41 04/18/20 02:41
[2020-04-19 12:59] VITALS: BP 148/69
--- NOTE | 2020-04-19 14:41 | Discharge Summary ---
Providers - Providers Date of Admission: 04/17/20 16:26 Date of discharge: 04/19/20 Attending physician: KOSTAS MARQUEZ 04/17/20 16:12 Consult to Physician [CONS] Routine Comment: Consulting Provider: RUBIN LEE Physician Instructions: Reason For Exam: PUI Primary care physician: ENERGY RISK MANAGEMENT ANALYST Hospitalization Condition: Stable Hospital course: Patient is resting in the bed, no apparent distress, no complaints, denies shortness of breath or wheezing or cough Patient states that she gets frequent attacks maybe once in 2 to 3 months She wants to go home and she feels back at her baseline Patient is medically stable for discharge Will prescribe short course of prednisone Patient states that she has all her home medications including inhalers and she does not need any refills Patient Problems Acute asthma exacerbation Improved Her O2 saturation on room air is 94% Prednisone 40 mg once daily for 5 days (2) Pneumonia-ruled out Discontinue antibiotic (3) Person under investigation for COVID-19 Current Visit: Yes Status: Acute Plan to address problem: COVID-19 PCR negative, ID note reviewed (4) Diabetes Current Visit: No Status: Chronic Plan to address problem: Continue home medications (5) GERD (gastroesophageal reflux disease) Current Visit: Yes Status: Chronic Qualifiers: Esophagitis presence: without esophagitis Qualified Code(s): K21.9 - Gastro-esophageal reflux disease without esophagitis Plan to address problem: PPI therapy, supportive care. Outpatient GI follow-up (6) Migraine Current Visit: Yes Status: Chronic Qualifiers: Migraine type: with aura Plan to address problem: Supportive care, no migraine activity at this time. (7) Seizure disorder Current Visit: Yes Status: Chronic Plan to address problem: No seizure activity at this time, Ativan as needed, supportive care. Continue home medications (8) Chronic pain syndrome Current Visit: Yes Status: Acute Plan to address problem: Pain control, continue home medication (9) Neuropathy Current Visit: Yes Status: Acute Plan to address problem: Continue Neurontin, supportive care, pain control. Disposition: DC-01 TO HOME OR SELFCARE Time spent for discharge: 36 minutes Core Measure Documentation - Palliative Care Palliative Care/ Comfort Measures: Not Applicable - Core Measures Any of the following diagnoses?: none Exam - Constitutional Vitals: Temp Pulse Resp BP Pulse Ox 99.2 F 68 22 148/69 94 04/19/20 11:38 04/19/20 11:38 04/19/20 11:38 04/19/20 11:38 04/19/20 11:38 General appearance: Present: no acute distress, well-nourished - EENT Eyes: Present: PERRL, EOM intact ENT: hearing intact, clear oral mucosa - Neck Neck: Present: supple, normal ROM - Respiratory Respiratory effort: normal Respiratory: bilateral: CTA, negative: rhonchi, wheezing - Cardiovascular Rhythm: regular Heart Sounds: Present: S1 & S2 - Extremities Extremities: No edema - Abdominal General gastrointestinal: Present: soft, non-tender Female genitourinary: Present: deferred - Rectal Rectal Exam: deferred - Integumentary Integumentary: Present: clear - Musculoskeletal Musculoskeletal: strength equal bilaterally - Neurologic Neurologic: no focal deficits Plan Activity: no restrictions Weight Bearing Status: Full Weight Bearing Diet: regular, low fat, low cholesterol, low salt, diabetic Follow up with: PRIMARY CARE, [Primary Care Provider] - 3-5 Days Prescriptions: Prednisone [predniSONE (Ashlee) ER TAB] 40 mg PO DAILY #5 tablet.
== END 2020-04-19 16:50 | disposition home or self-care (01) | DRG 189 ==
LOC: ED 12:29 → IMCU 16:26 → 3A 20:23
PROVIDERS: ADMIT Internal Medicine; ATTEND Internal Medicine
PROC: 5A09357 Assistance with Respiratory Ventilation, Less than 24 Consecutive Hours, Continuous Positive Airway Pressure (ICD-10-PCS; principal; 2020-04-18)
DX: J96.01 Acute respiratory failure with hypoxia (principal); J45.901 Unspecified asthma with (acute) exacerbation; K21.9 Gastro-esophageal reflux disease without esophagitis; M19.90 Unspecified osteoarthritis, unspecified site; G43.119 Migraine with aura, intractable, without status migrainosus; G89.4 Chronic pain syndrome; E66.2 Morbid (severe) obesity with alveolar hypoventilation; G40.909 Epilepsy, unspecified, not intractable, without status epilepticus; E11.40 Type 2 diabetes mellitus with diabetic neuropathy, unspecified; F41.1 Generalized anxiety disorder; I10 Essential (primary) hypertension; G43.909 Migraine, unspecified, not intractable, without status migrainosus; Z90.49 Acquired absence of other specified parts of digestive tract; Z88.5 Allergy status to narcotic agent; Z88.8 Allergy status to other drugs, medicaments and biological substances; Z91.013 Allergy to seafood; Z86.73 Personal history of transient ischemic attack (TIA), and cerebral infarction without residual deficits; Z91.09 Other allergy status, other than to drugs and biological substances; Z98.51 Tubal ligation status; Z68.42 Body mass index [BMI] 45.0-49.9, adult; Z83.3 Family history of diabetes mellitus; Z82.49 Family history of ischemic heart disease and other diseases of the circulatory system; Z03.818 Encounter for observation for suspected exposure to other biological agents ruled out; Z79.4 Long term (current) use of insulin
CPT/HCPCS: 36415; 71045; 80048; 80053; 81001; 82140; 82728; 82803; 83615; 83880; 84145; 84484; 85025; 85379; 86140; 87040; 93005; 94640; 94644; 94660; 94760; G0378; A9270-GY; J0456; J0696; J1644; J2930; J3246; J3475; J7030; J7050; U0003-CS

== ENCOUNTER 2020-08-28 18:02 | Inpatient (IN) | payer MEDICAID ==
--- NOTE | 2020-08-28 18:50 | Emergency Department Report ---
ED Shortness of Breath HPI - General Chief Complaint: Dyspnea/Respdistress Stated Complaint: DEN Time Seen by Provider: 08/28/20 18:37 Source: patient, EMS Mode of arrival: Stretcher Limitations: No Limitations - History of Present Illness Initial Comments: Patient is 55 years old female with history of COPD, asthma, diabetes and hypertension and obstructive sleep apnea. Patient brought to the emergency room via EMS from home for evaluation of shortness of breath and difficulty breathing. Patient stated that her symptoms started 3 days ago but it get worse today. EMS stated that patient initial oxygen saturation was 87% on room air. Patient started on nonrebreather and oxygen went up to 96%. Patient received albuterol 5 mg, magnesium sulfate 2 g by EMS and stated that it did help with her symptoms. Patient stated that she used CPAP at night. Patient is not on oxygen at home. Patient denied any history of congestive heart failure before. Patient currently denying any fever, chills, chest pain, abdominal pain, nausea or vomiting. MD Complaint: shortness of breath, cough -: days(s) (3) Severity: moderate Known History Of: COPD Context: recent URI Treatments Prior to Arrival: oxygen, bronchodilator - Related Data Home Medications Medication Instructions Recorded Confirmed Last Taken Fluticasone/Salmeterol [Advair 1 each IH BID 10/11/18 08/28/20 05/20/19 500-50 Diskus] Cyclobenzaprine [Flexeril 10 MG 10 mg PO TID PRN 05/20/19 08/28/20 Unknown TAB] Duloxetine HCl [Cymbalta] 60 mg PO QDAY 05/20/19 08/28/20 Unknown Aspirin BABY CHEW TAB 81 mg PO QDAY 04/17/20 08/28/20 Unknown Valsartan/Hydrochlorothiazide 1 each PO DAILY 04/17/20 08/28/20 Unknown [Valsartan-Hctz 160-12.5 mg Tab] Previous Rx's Medication Instructions Recorded Last Taken Type lisinopriL [Zestril TAB] 10 mg PO QDAY tablet 07/11/18 05/20/19 Rx Gabapentin 900 mg PO TID #90 capsule 05/24/19 Unknown Rx HYDROcodone/APAP 10-325 [[place] 1 each PO 5XD PRN #20 tablet 05/24/19 Unknown Rx 10-325 mg TAB] Pravastatin [Pravachol] 20 mg PO QHS #30 tablet 05/24/19 Unknown Rx metFORMIN [Glucophage] 500 mg PO BIDWM #60 tablet 05/24/19 Unknown Rx Aspirin [Aspirin BABY CHEW TAB] 81 mg PO QDAY tab.chew 04/19/20 Unknown Rx DULoxetine [Cymbalta] 60 mg PO QDAY capsule 04/19/20 Unknown Rx Prednisone [predniSONE (Ashlee) ER 40 mg PO DAILY #5 tablet. 04/19/20 Unknown Rx TAB] Allergies Allergy/AdvReac Type Severity Reaction Status Date / Time pregabalin [From Lyrica] Allergy Unknown Verified 04/17/20 17:34 topiramate [From Topamax] Allergy Seizure Verified 04/17/20 17:34 shellfish Allergy Hives Uncoded 04/17/20 17:34 paragoric AdvReac Unknown Uncoded 04/17/20 17:34 ED Review of Systems ROS: Stated complaint: DEN Other details as noted in HPI Comment: All other systems reviewed and negative Constitutional: denies: chills, diaphoresis Respiratory: cough, orthopnea, shortness of breath, SOB with exertion, SOB at rest, wheezing Cardiovascular: denies: chest pain, palpitations, dyspnea on exertion Gastrointestinal: denies: abdominal pain, nausea, vomiting, diarrhea, constipation, hematemesis, melena, hematochezia Neurological: denies: headache, weakness, numbness, paresthesias, confusion, abnormal gait ED Past Medical Hx - Past Medical History Hx Hypertension: Yes Hx CVA: Yes (TIA) Hx Heart Attack/AMI: No (STRESS TEST NEG 2018, cardiac cath 2019 normal) Hx Congestive Heart Failure: No Hx Diabetes: Yes (Pre-diabetes per pt.) Hx Deep Vein Thrombosis: No Hx Pulmonary Embolism: No Hx GERD: Yes Hx Liver Disease: No Hx Renal Disease: No Hx Sickle Cell Disease: No Hx Arthritis: Yes Hx Headaches / Migraines: Yes Hx Seizures: Yes Hx Kidney Stones: No Hx Psychiatric Treatment: Yes (, ANXIETY, CHRONIC PAIN) Hx Asthma: Yes Hx COPD: No Hx Tuberculosis: No Hx Dementia: No Hx HIV: No Additional medical history: scoliosis, FIBROMYALGIA, Vertigo, OBESE; post menop ausal - Surgical History Hx Coronary Stent: No Hx Open Heart Surgery: No Hx Pacemaker: No Hx Internal Defibrillator: No Hx Cholecystectomy: Yes Hx Appendectomy: Yes Hx Breast Surgery: No Additional Surgical History: Tubal ligation. NECK SURGERY 2016 - Social History Smoking Status: Never Smoker - Medications Home Medications: Home Medications Medication Instructions Recorded Confirmed Last Taken Type lisinopriL [Zestril TAB] 10 mg PO QDAY tablet 07/11/18 08/28/20 05/20/19 Rx Fluticasone/Salmeterol [Advair 1 each IH BID 10/11/18 08/28/20 05/20/19 History 500-50 Diskus] Cyclobenzaprine [Flexeril 10 MG 10 mg PO TID PRN 05/20/19 08/28/20 Unknown History TAB] Duloxetine HCl [Cymbalta] 60 mg PO QDAY 05/20/19 08/28/20 Unknown History Gabapentin 900 mg PO TID #90 capsule 05/24/19 08/28/20 Unknown Rx HYDROcodone/APAP 10-325 [[place] 1 each PO 5XD PRN #20 tablet 05/24/19 08/28/20 Unknown Rx 10-325 mg TAB] Pravastatin [Pravachol] 20 mg PO QHS #30 tablet 05/24/19 08/28/20 Unknown Rx metFORMIN [Glucophage] 500 mg PO BIDWM #60 tablet 05/24/19 08/28/20 Unknown Rx Aspirin BABY CHEW TAB 81 mg PO QDAY 04/17/20 08/28/20 Unknown History Valsartan/Hydrochlorothiazide 1 each PO DAILY 04/17/20 08/28/20 Unknown History [Valsartan-Hctz 160-12.5 mg Tab] Aspirin [Aspirin BABY CHEW TAB] 81 mg PO QDAY tab.chew 04/19/20 08/28/20 Unknown Rx DULoxetine [Cymbalta] 60 mg PO QDAY capsule 04/19/20 08/28/20 Unknown Rx Prednisone [predniSONE (Ashlee) ER 40 mg PO DAILY #5 tablet.dr 04/19/20 08/28/20 Unknown Rx TAB] ED Physical Exam - General Limitations: No Limitations General appearance: alert, in distress - Head Head exam: Present: atraumatic, normocephalic, normal inspection - Eye Eye exam: Present: normal appearance, PERRL - ENT ENT exam: Present: normal exam, normal orophraynx, mucous membranes moist - Neck Neck exam: Present: normal inspection, full ROM. Absent: tenderness, meningismus - Respiratory Respiratory exam: Present: respiratory distress, wheezes, rales, rhonchi, accessory muscle use, decreased breath sounds, prolonged expiratory - Cardiovascular Cardiovascular Exam: Present: regular rate, normal rhythm, normal heart sounds - GI/Abdominal GI/Abdominal exam: Present: soft, normal bowel sounds. Absent: distended, tenderness, guarding, rebound, rigid, organomegaly, mass, bruit, pulsatile mass, hernia - Extremities Exam Extremities exam: Present: normal inspection, full ROM, normal capillary refill. Absent: tenderness, pedal edema, calf tenderness - Back Exam Back exam: Present: normal inspection, full ROM. Absent: CVA tenderness (R), CVA tenderness (L) - Neurological Exam Neurological exam: Present: alert, oriented X3, CN II-XII intact - Skin Skin exam: Present: warm, intact, normal color ED Course Vital Signs 08/28/20 08/28/20 08/28/20 18:27 18:30 18:37 Temperature 98.7 F Pulse Rate 76 Pulse Rate [ Posterior Bilateral Throughout] Respiratory 17 20 Rate Respiratory Rate [Posterior Bilateral Throughout] Blood Pressure 156/65 Blood Pressure 156/65 [Left] O2 Sat by Pulse 99 99 98 Oximetry 08/28/20 08/28/20 08/28/20 19:00 19:01 19:25 Temperature 98 F Pulse Rate 74 73 Pulse Rate [ 68 Posterior Bilateral Throughout] Respiratory 21 13 Rate Respiratory 18 Rate [Posterior Bilateral Throughout] Blood Pressure 148/76 Blood Pressure 148/76 [Left] O2 Sat by Pulse 89 94 Oximetry 08/28/20 08/28/20 08/28/20 19:30 20:00 20:30 Temperature Pulse Rate 66 78 80 Pulse Rate [ Posterior Bilateral Throughout] Respiratory 24 23 20 Rate Respiratory Rate [Posterior Bilateral Throughout] Blood Pressure 148/76 155/75 155/75 Blood Pressure [Left] O2 Sat by Pulse 95 93 94 Oximetry ED Medical Decision Making - Lab Data Result diagrams: 08/28/20 19:00 08/28/20 19:00 - EKG Data -: EKG Interpreted by Me EKG shows normal: sinus rhythm Rate: normal - EKG Data Interpretation: no acute changes - Radiology Data Radiology results: report reviewed - Medical Decision Making Patient is 55 years old female with history of COPD, asthma, diabetes and hypertension and obstructive sleep apnea. Patient brought to the emergency room via EMS from home for evaluation of shortness of breath and difficulty breathing. Patient stated that her symptoms started 3 days ago but it get worse today. EMS stated that patient initial oxygen saturation was 87% on room air. Patient started on nonrebreather and oxygen went up to 96%. Patient received albuterol 5 mg, magnesium sulfate 2 g by EMS and stated that it did help with her symptoms. Patient stated that she used CPAP at night. Patient is not on oxygen at home. Patient denied any history of congestive heart failure before. Patient currently denying any fever, chills, chest pain, abdominal pain, nausea or vomiting. Patient received albuterol, Atrovent, Solu-Medrol. Labs reviewed and is unremarkable except for elevated hemoglobin and hematocrit which is most likely secondary to her chronic respiratory insufficiency. Chest x-ray is unremarkable. Patient stated that she is feeling better. ABG reviewed and is unremarkable except for hypoxemia. I discussed the patient with Dr. Falk, he agreed to admit the patient to medical service for further management. Critical Care Time: Yes Critical care time in (mins) excluding proc time.: 30 Critical care attestation.: If time is entered above; I have spent that time in minutes in the direct care of this critically ill patient, excluding procedure time. ED Disposition Clinical Impression: Acute respiratory failure with hypoxemia, Asthma exacerbation Disposition: OP ADMIT IP TO THIS HOSP Is pt being admited?: Yes Condition: Stable
[2020-08-28 19:34] LABS: INR 0.95 (0.87-1.13)
[2020-08-28 19:35] LABS: Partial Thromboplastin Time 28.8 Sec. (24.2-36.6)
[2020-08-28 19:41] LABS: BUN/Creatinine Ratio 19; Blood Urea Nitrogen 15 mg/dL (7-17); Calcium 9.2 mg/dL (8.4-10.2); Hemolysis Index 8
[2020-08-28 19:45] LABS: Alanine Aminotransferase 17 units/L (7-56); Albumin 4.2 g/dL (3.9-5)
[2020-08-28] MEDS: IPRATROPIUM 0.02% NEBU 2.5 ML IH ONE ×2 (19:45→23:56)
[2020-08-28] MEDS: ALBUTEROL 2.5 MG/3 ML NEBU IH ONE ×2 (19:45→23:56)
[2020-08-28 19:46] LABS: ABG Base Excess 2.8 mmol/L (-2.0-3.0); ABG HCO3 28.6 mmol/L (20.0-26.0); ABG Methemoglobin 0.5 % (0.0-1.5); ABG Oxygen Saturation 89.6 % (95.0-99.0); ABG PCO2 48.7 mm Hg; ABG PH 7.387 pH Units (7.350-7.450); ABG PO2 54.8 mm Hg (80.0-90.0)
[2020-08-28 19:46] LABS: Bilirubin,Direct < 0.2 mg/dL (0-0.2)
--- NOTE | 2020-08-28 19:53 | XRay Report ---
XR chest 1V ap INDICATION / CLINICAL INFORMATION: Dyspnea COMPARISON: 04/17/2020 FINDINGS: SUPPORT DEVICES: None. HEART / MEDIASTINUM: No significant abnormality. LUNGS / PLEURA: Lungs are clear. Costophrenic sulci are sharp. No pneumothorax. ADDITIONAL FINDINGS: No significant additional findings. IMPRESSION: 1. No acute findings. Signer Name: Owen Shah MD Signed: 08/28/2020 7:49 PM Workstation Name: [id number]
[2020-08-28 20:00] LABS: Hemoglobin 18.7 gm/dl (10.1-14.3); Mean Corpuscular HGB Conc 34 % (30-34); Mean Corpuscular Volume 90 fl (79-97); Platelet Count 167 K/mm3 (140-440); Red Cell Distribution Width 14.6 % (13.2-15.2)
[2020-08-28] MEDS ORDERED: DEXTROSE 50% IN WATER (25GM) 50 ML SYRINGE IV PRN (21:53)
[2020-08-28] MEDS ORDERED: ACETAMINOPHEN 325 MG TAB PO PRN (21:53)
[2020-08-28] MEDS ORDERED: MORPHINE 2 MG/1 ML INJ IV PRN (21:53)
[2020-08-28] MEDS ORDERED: ONDANSETRON 4 MG/2 ML INJ IV PRN (21:53)
[2020-08-28] MEDS ORDERED: MAGNESIUM HYDROXIDE (MOM) ORAL LIQD UDC PO PRN (21:53)
--- NOTE | 2020-08-28 22:02 | History and Physical Report ---
History of Present Illness Date of examination: 08/28/20 Date of admission: 08/28/20 21:28 Chief complaint: Shortness of Breath Cough History of present illness: 55-year-old female with known history of COPD, asthma, obstructive sleep apnea, diabetes mellitus and hypertension presenting to the emergency room via EMS today complaining of difficulty in breathing. Symptoms was said to have started about 3 days ago but got worse today. Initial oxygen saturation upon arrival of EMS was about 87% on room air. She was subsequently placed on nonrebreather with improvement of her oxygen saturation to about 96%. She also had nebulizing treatments and IV magnesium en route to the hospital. Patient uses CPAP at night and she is not on any home oxygen. Patient denies any fever or chills, no chest pain, no headache or dizziness, no nausea or vomiting and no abdominal pain. Upon arrival in the emergency room patient was found to be wheezing which was started on nebulizing treatments. She has been admitted for asthma exacerbation with associated hypoxia. Past History Past Medical History: arthritis, diabetes, GERD, hypertension, stroke, other (Asthma,Scoliosis,Fibromyalgia,seizures,Vertigo,) Past Surgical History: appendectomy, cholecystectomy, Other (Cardiac cath. in 2019-Normal) Social history: no significant social history Family history: no significant family history Medications and Allergies Allergies Allergy/AdvReac Type Severity Reaction Status Date / Time pregabalin [From Lyrica] Allergy Unknown Verified 04/17/20 17:34 topiramate [From Topamax] Allergy Seizure Verified 04/17/20 17:34 shellfish Allergy Hives Uncoded 04/17/20 17:34 paragoric AdvReac Unknown Uncoded 04/17/20 17:34 Home Medications Medication Instructions Recorded Confirmed Last Taken Type lisinopriL [Zestril TAB] 10 mg PO QDAY tablet 07/11/18 08/28/20 05/20/19 Rx Fluticasone/Salmeterol [Advair 1 each IH BID 10/11/18 08/28/20 05/20/19 History 500-50 Diskus] Cyclobenzaprine [Flexeril 10 MG 10 mg PO TID PRN 05/20/19 08/28/20 Unknown History TAB] Duloxetine HCl [Cymbalta] 60 mg PO QDAY 05/20/19 08/28/20 Unknown History Gabapentin 900 mg PO TID #90 capsule 05/24/19 08/28/20 Unknown Rx HYDROcodone/APAP 10-325 [[place] 1 each PO 5XD PRN #20 tablet 05/24/19 08/28/20 Unknown Rx 10-325 mg TAB] Pravastatin [Pravachol] 20 mg PO QHS #30 tablet 05/24/19 08/28/20 Unknown Rx metFORMIN [Glucophage] 500 mg PO BIDWM #60 tablet 05/24/19 08/28/20 Unknown Rx Aspirin BABY CHEW TAB 81 mg PO QDAY 04/17/20 08/28/20 Unknown History Valsartan/Hydrochlorothiazide 1 each PO DAILY 04/17/20 08/28/20 Unknown History [Valsartan-Hctz 160-12.5 mg Tab] Aspirin [Aspirin BABY CHEW TAB] 81 mg PO QDAY tab.chew 04/19/20 08/28/20 Unknown Rx DULoxetine [Cymbalta] 60 mg PO QDAY capsule 04/19/20 08/28/20 Unknown Rx Prednisone [predniSONE (Ashlee) ER 40 mg PO DAILY #5 tablet. 04/19/20 08/28/20 Unknown Rx TAB] Active Meds: Active Medications Acetaminophen (Tylenol) 650 mg PO Q4H PRN PRN Reason: Pain MILD(1-3)/Fever >100.5/JARA Albuterol/Ipratropium (Duoneb *Not For Prn Use*) 1 ampul IH Q6HRT [facility] Dextrose (D50w (25gm) Syringe) 50 ml IV Q30MIN PRN; Protocol PRN Reason: Hypoglycemia Enoxaparin Sodium (Enoxaparin) 40 mg SUB-Q QDAY@2200 CORNELIUS; Protocol Insulin Human Lispro (Humalog) 0 unit SUB-Q QHS CORNELIUS; Protocol Magnesium Hydroxide (Milk Of Magnesia) 30 ml PO Q4H PRN PRN Reason: Constipation Methylprednisolone Sodium Succinate (Solu-Medrol) 40 mg IV Q8HR O[facility] Morphine Sulfate (Morphine) 2 mg IV Q4H PRN PRN Reason: Pain, Moderate (4-6) Ondansetron HCl (Zofran) 4 mg IV Q8H PRN PRN Reason: Nausea And Vomiting Sodium Chloride (Sodium Chloride Flush Syringe 10 Ml) 10 ml IV BID CORNELIUS Sodium Chloride (Sodium Chloride Flush Syringe 10 Ml) 10 ml IV PRN PRN PRN Reason: LINE FLUSH Review of Systems Constitutional: no fever, no chills Ears, nose, mouth and throat: no nasal congestion, no sore throat Cardiovascular: no chest pain, no palpitations Respiratory: cough, shortness of breath, no cough with sputum Gastrointestinal: no abdominal pain, no nausea, no vomiting, no diarrhea Genitourinary Female: no pelvic pain, no flank pain, no dysuria, no hematuria Musculoskeletal: no neck pain, no low back pain Integumentary: no rash, no pruritis Neurological: no headaches, no confusion Psychiatric: no anxiety, no depression Exam - Constitutional Vitals: Temp Pulse Resp BP Pulse Ox 98 F 80 20 155/75 94 08/28/20 19:01 08/28/20 20:30 08/28/20 20:30 08/28/20 20:30 08/28/20 20:30 General appearance: Present: no acute distress, well-nourished, obese - EENT Eyes: Present: PERRL, EOM intact ENT: hearing intact, clear oral mucosa, dentition normal - Neck Neck: Present: supple, normal ROM - Respiratory Respiratory effort: normal Respiratory: bilateral: wheezing (Few scattered wheezes) - Cardiovascular Rhythm: regular Heart Sounds: Present: S1 & S2. Absent: gallop, systolic murmur, diastolic murmur, rub - Extremities Extremities: no ischemia, pulses intact, pulses symmetrical, No edema, Full ROM Peripheral Pulses: within normal limits - Abdominal General gastrointestinal: Present: soft, non-tender, non-distended, normal bowel sounds. Absent: mass - Integumentary Integumentary: Present: clear, warm, dry. Absent: rash - Musculoskeletal Musculoskeletal: strength equal bilaterally - Psychiatric Psychiatric: appropriate mood/affect, intact judgment & insight, memory intact, cooperative - Neurologic Neurologic: CNII-XII intact, no focal deficits, moves all extremities HEART Score - HEART Score Troponin: Troponin T < 0.010 ng/mL (0.00-0.029) 08/28/20 19:00 Results - Labs CBC & Chem 7: 08/28/20 19:00 08/28/20 19:00 Labs: Abnormal lab results 08/28/20 08/28/20 08/28/20 Range/Units 19:00 19:00 19:25 RBC 6.20 H (3.65-5.03) M/mm3 Hgb 18.7 H (10.1-14.3) gm/dl Hct 56.0 H* (30.3-42.9) % ABG pO2 54.8 L (80.0-90.0) mm Hg ABG HCO3 28.6 H (20.0-26.0) mmol/L ABG O2 Saturation 89.6 L (95.0-99.0) % Oxyhemoglobin 88.1 L (95.0-99.0) % Glucose 147 H (65-100) mg/dL Assessment and Plan - Patient Problems (1) Acute respiratory failure with hypoxemia Current Visit: Yes Status: Acute Plan to address problem: Secondary to the asthma exacerbation. We will keep O2 saturation greater or equal to 94%. (2) Asthma exacerbation Current Visit: Yes Status: Acute Qualifiers: Plan to address problem: Patient placed on nebulizing treatments, IV steroids. (3) Diabetes mellitus Current Visit: No Status: Acute Plan to address problem: We will monitor Accu-Cheks closely and resume routine home medications. (4) GERD (gastroesophageal reflux disease) Current Visit: No Status: Chronic Qualifiers: Esophagitis presence: with esophagitis Plan to address problem: We will continue patient on her routine home medication. (5) Hyperlipidemia Current Visit: No Status: Chronic Qualifiers: Hyperlipidemia type: mixed hyperlipidemia Qualified Code(s): E78.2 - Mixed hyperlipidemia Plan to address problem: We will monitor lipid profile. (6) Hypertension Current Visit: No Status: Chronic Qualifiers: Hypertension type: essential hypertension Qualified Code(s): I10 - Essential (primary) hypertension Plan to address problem: We will resume routine home medications and monitor vital signs closely. (7) Seizure disorder Current Visit: No Status: Chronic Plan to address problem: Will place patient on seizure precautions and continue routine home medications. (8) DVT prophylaxis Current Visit: No Status: Acute Plan to address problem: Patient placed on subcutaneous Lovenox. (9) Full code status Current Visit: Yes Status: Acute
[2020-08-28] MEDS ORDERED: ENOXAPARIN 40 MG/0.4 ML INJ SUB-Q ONE (22:25)
[2020-08-28] MEDS ORDERED: methylPREDNISolone Sod Succinate 40 MG/1 ML INJ ONE (22:25)
[2020-08-28] MEDS ORDERED: INSULIN REGULAR, HUMAN 100 UNIT/ML 3ML VIAL ONE (22:26)
[2020-08-28] MEDS: methylPREDNISolone Sod Succinate 40 MG/1 ML INJ IV SCH (22:30)
[2020-08-28] MEDS: ENOXAPARIN 40 MG/0.4 ML INJ SUB-Q SCH (22:30)
[2020-08-28] MEDS: INSULIN LISPRO 100 UNIT/ML VIAL 3 mL SUB-Q SCH (22:31)
[2020-08-29] MEDS: IPRATROPIUM/ALBUTEROL SULFATE 3 ML AMPUL.NEB IH SCH ×5 (01:25→20:49)
[2020-08-29] MEDS: methylPREDNISolone Sod Succinate 40 MG/1 ML INJ IV SCH ×3 (05:26→21:46)
[2020-08-29] MEDS ORDERED: CYCLOBENZAPRINE 10 MG TAB PO PRN (06:48)
[2020-08-29] MEDS ORDERED: HYDROcodone/ACETAMINOPHEN 10-325MG TAB PO PRN (06:48)
--- NOTE | 2020-08-29 08:00 | Progress Note ---
Assessment and Plan Assessment and plan: Acute hypoxic respiratory failure. Etiology secondary to asthma exacerbation. Acute asthma exacerbation, severe persistent. Patient will be continued on asthma pathway. IV steroids, bronchodilators/nebulizer treatments and consider empiric antibiotics. Diabetes mellitus type 2. Continue Accu-Cheks and sliding scale insulin. GERD. Continue PPI. Hypertension. Continue home antihypertensive medications. Seizure disorder. Continue seizure precautions. AEDs. DVT prophylaxis. Subcutaneous Lovenox History Interval history: No new issues overnight. Hospitalist Physical - Constitutional Vitals: Temp Pulse Resp BP Pulse Ox 98.4 F 80 16 156/88 93 08/29/20 03:53 08/29/20 03:53 08/29/20 03:53 08/29/20 03:53 08/29/20 03:53 General appearance: Present: no acute distress, well-nourished, obese - EENT Eyes: Present: PERRL, EOM intact ENT: hearing intact, clear oral mucosa, dentition normal - Neck Neck: Present: supple, normal ROM - Respiratory Respiratory effort: normal Respiratory: bilateral: CTA - Cardiovascular Rhythm: regular Heart Sounds: Present: S1 & S2. Absent: gallop, rub - Extremities Extremities: no ischemia, No edema, Full ROM - Abdominal General gastrointestinal: soft, non-tender, non-distended, normal bowel sounds - Integumentary Integumentary: Present: clear, warm, dry - Neurologic Neurologic: CNII-XII intact, moves all extremities HEART Score - HEART Score Troponin: Troponin T < 0.010 ng/mL (0.00-0.029) 08/28/20 19:00 Results - Labs CBC & Chem 7: 08/28/20 19:00 08/28/20 19:00 Labs: Laboratory Last Values WBC 6.1 K/mm3 (4.5-11.0) 08/28/20 19:00 RBC 6.20 M/mm3 (3.65-5.03) H 08/28/20 19:00 Hgb 18.7 gm/dl (10.1-14.3) H 08/28/20 19:00 Hct 56.0 % (30.3-42.9) H* 08/28/20 19:00 MCV 90 fl (79-97) 08/28/20 19:00 MCH 30 pg (28-32) 08/28/20 19:00 MCHC 34 % (30-34) 08/28/20 19:00 RDW 14.6 % (13.2-15.2) 08/28/20 19:00 Plt Count 167 K/mm3 (140-440) 08/28/20 19:00 Lymph % (Auto) [employer] 08/28/20 19:00 [place] % (Auto) [employer] 08/28/20 19:00 Eos % (Auto) [employer] 08/28/20 19:00 Baso % (Auto) [employer] 08/28/20 19:00 Lymph # (Auto) [employer] 08/28/20 19:00 [place] # (Auto) [employer] 08/28/20 19:00 Eos # (Auto) [employer] 08/28/20 19:00 Baso # (Auto) [employer] 08/28/20 19:00 Seg Neutrophils % [employer] 08/28/20 19:00 Seg Neutrophils # [employer] 08/28/20 19:00 PT 12.8 Sec. (12.2-14.9) 08/28/20 19:00 INR 0.95 (0.87-1.13) 08/28/20 19:00 APTT 28.8 Sec. (24.2-36.6) 08/28/20 19:00 ABG pH 7.387 pH Units (7.350-7.450) 08/28/20 19:25 ABG pCO2 48.7 mm Hg 08/28/20 19:25 ABG pO2 54.8 mm Hg (80.0-90.0) L 08/28/20 19:25 ABG HCO3 28.6 mmol/L (20.0-26.0) H 08/28/20 19:25 ABG O2 Saturation 89.6 % (95.0-99.0) L 08/28/20 19:25 ABG O2 Content 17.6 (0.0-44) 08/28/20 19:25 ABG Base Excess 2.8 mmol/L (-2.0-3.0) 08/28/20 19:25 ABG Hemoglobin 14.2 gm/dl (12.0-16.0) 08/28/20 19:25 ABG Carboxyhemoglobin 1.1 % (0.0-5.0) 08/28/20 19:25 ABG Methemoglobin 0.5 % (0.0-1.5) 08/28/20 19:25 Oxyhemoglobin 88.1 % (95.0-99.0) L 08/28/20 19:25 FiO2 21 % 08/28/20 19:25 Sodium 143 mmol/L (137-145) 08/28/20 19:00 Potassium 3.8 mmol/L (3.6-5.0) 08/28/20 19:00 Chloride 103.7 mmol/L (98-107) 08/28/20 19:00 Carbon Dioxide 28 mmol/L (22-30) 08/28/20 19:00 Anion Gap 15 mmol/L 08/28/20 19:00 BUN 15 mg/dL (7-17) 08/28/20 19:00 Creatinine 0.8 mg/dL (0.6-1.2) 08/28/20 19:00 Estimated GFR > 60 ml/min 08/28/20 19:00 BUN/Creatinine Ratio 19 % 08/28/20 19:00 Glucose 147 mg/dL (65-100) H 08/28/20 19:00 POC Glucose 187 mg/dL (70-105) H 08/28/20 22:38 Lactic Acid 1.40 mmol/L (0.7-2.0) 08/28/20 19:00 Calcium 9.2 mg/dL (8.4-10.2) 08/28/20 19:00 Total Bilirubin 0.20 mg/dL (0.1-1.2) 08/28/20 19:00 Direct Bilirubin < 0.2 mg/dL (0-0.2) 08/28/20 19:00 Indirect Bilirubin 0.0 mg/dL 08/28/20 19:00 AST 20 units/L (5-40) 08/28/20 19:00 ALT 17 units/L (7-56) 08/28/20 19:00 Alkaline Phosphatase 126 units/L (35-129) 08/28/20 19:00 Troponin T < 0.010 ng/mL (0.00-0.029) 08/28/20 19:00 NT-Pro-B Natriuret Pep 122.5 pg/mL (0-900) 08/28/20 19:00 Total Protein 7.4 g/dL (6.3-8.2) 08/28/20 19:00 Albumin 4.2 g/dL (3.9-5) 08/28/20 19:00 Albumin/Globulin Ratio 1.3 % 08/28/20 19:00 [place]iles/IV: Voiding Method Toilet IV Catheter Type [Left Forearm INT / Saline Lock ] Active Medications - Current Medications Current Medications: Generic Name Dose Route Start Last Admin Trade Name Freq PRN Reason Stop Dose Admin Acetaminophen 650 mg 08/28/20 21:53 Tylenol PO Q4H PRN Pain MILD(1-3)/Fever >100.5/JARA Hydrocodone Bitart/Acetaminophen 1 each 08/29/20 06:48 Outlook 10/325 PO 5XD PRN Pain, Moderate (4-6) Albuterol/Ipratropium 1 ampul 08/29/20 02:00 08/29/20 07:46 Duoneb *Not For Prn Use* IH 1 ampul Q6HRT [facility] Administration Aspirin 81 mg 08/29/20 10:00 Baby Aspirin PO QDAY [facility] Cyclobenzaprine HCl 10 mg 08/29/20 06:48 Flexeril PO TID PRN Muscle Spasm Dextrose 50 ml 08/28/20 21:53 D50w (25gm) Syringe IV Q30MIN PRN Hypoglycemia Protocol Duloxetine HCl 60 mg 08/29/20 10:00 Cymbalta PO QDAY [facility] Enoxaparin Sodium 40 mg 08/28/20 22:00 08/28/20 22:30 Enoxaparin SUB-Q 40 mg QDAY@2200 [facility] Administration Protocol Gabapentin 900 mg 08/29/20 08:00 Gabapentin PO TID [facility] Hydrochlorothiazide 12.5 mg 08/29/20 10:00 Hctz PO QDAY [facility] Insulin Human Lispro 0 unit 08/28/20 22:00 08/28/20 22:31 Humalog SUB-Q 2 unit QHS [facility] Administration Protocol Magnesium Hydroxide 30 ml 08/28/20 21:53 Milk Of Magnesia PO Q4H PRN Constipation Metformin HCl 500 mg 08/29/20 08:00 Glucophage PO BIDDIAB [facility] Methylprednisolone Sodium Succinate 40 mg 08/28/20 22:00 08/29/20 05:26 Solu-Medrol IV 40 mg Q8HR CORN[facility]IUS Administration Morphine Sulfate 2 mg 08/28/20 21:53 Morphine IV Q4H PRN Pain, Moderate (4-6) Ondansetron HCl 4 mg 08/28/20 21:53 Zofran IV Q8H PRN Nausea And Vomiting Pravastatin Sodium 20 mg 08/29/20 22:00 Pravachol PO QHS CORNELIUS Sodium Chloride 10 ml 08/28/20 22:00 08/28/20 22:30 Sodium Chloride Flush Syringe 10 Ml IV 10 ml BID CORNELIUS Administration Sodium Chloride 10 ml 08/28/20 21:53 Sodium Chloride Flush Syringe 10 Ml IV PRN PRN LINE FLUSH Valsartan 160 mg 08/29/20 10:00 Diovan PO QDAY [facility]
[2020-08-29 08:36] LABS: INR 0.98 (0.87-1.13)
[2020-08-29 08:46] LABS: Basophils % (Auto) 0.2 % (0.0-1.8); Lymphocytes % (Auto) 8.2 % (13.4-35.0); Mean Corpuscular HGB Conc 33 % (30-34); Mean Corpuscular Volume 90 fl (79-97); Monocytes % (Auto) 1.8 % (0.0-7.3); Platelet Count 314 K/mm3 (140-440); Red Cell Distribution Width 14.1 % (13.2-15.2)
[2020-08-29 08:48] LABS: Blood Urea Nitrogen 13 mg/dL (7-17); Calcium 9.5 mg/dL (8.4-10.2); Hemolysis Index 1
[2020-08-29 08:49] LABS: BUN/Creatinine Ratio 22
[2020-08-29 09:08] LABS: Hematocrit 42.6 % (30.3-42.9); Hemoglobin 14.3 gm/dl (10.1-14.3)
[2020-08-29] MEDS: ASPIRIN 81 MG TAB CHEW PO SCH (09:57)
[2020-08-29] MEDS: metFORMIN 500 MG TAB PO SCH ×2 (09:57→20:23)
[2020-08-29] MEDS: GABAPENTIN 300 MG CAP PO SCH ×3 (09:57→20:20)
[2020-08-29] MEDS: DULoxetine 30 MG CAP PO SCH (09:58)
[2020-08-29] MEDS: VALSARTAN 160MG TAB PO SCH (09:58)
[2020-08-29] MEDS: hydroCHLOROthiazide 12.5 MG CAP PO SCH (09:58)
[2020-08-29] MEDS ORDERED: NON-FORMULARY EACH (Duloxetine Hcl [Cymbalta] 60 MG) PO SCH (10:00)
[2020-08-29] MEDS ORDERED: HYDROCHLOROTHIAZIDE PO SCH (10:00)
[2020-08-29] MEDS ORDERED: LISINOPRIL 10 MG TAB PO SCH (10:00)
[2020-08-29] MEDS ORDERED: VALSARTAN PO SCH (10:00)
[2020-08-29] MEDS ORDERED: [UNRECOGNIZED DRUG - OTHER] PO SCH (10:00)
[2020-08-29] MEDS: ENOXAPARIN 40 MG/0.4 ML INJ SUB-Q SCH (21:46)
[2020-08-29] MEDS ORDERED: PRAVASTATIN 20 MG TAB PO SCH (22:00)
[2020-08-29] MEDS: INSULIN LISPRO 100 UNIT/ML VIAL 3 mL SUB-Q SCH (22:53)
[2020-08-30] MEDS: IPRATROPIUM/ALBUTEROL SULFATE 3 ML AMPUL.NEB IH SCH ×3 (02:45→14:05)
[2020-08-30] MEDS: methylPREDNISolone Sod Succinate 40 MG/1 ML INJ IV SCH ×2 (05:53→15:25)
[2020-08-30] MEDS: VALSARTAN 160MG TAB PO SCH (09:58)
[2020-08-30] MEDS: GABAPENTIN 300 MG CAP PO SCH ×2 (09:59→15:25)
[2020-08-30] MEDS: hydroCHLOROthiazide 12.5 MG CAP PO SCH (09:59)
[2020-08-30] MEDS: DULoxetine 30 MG CAP PO SCH (09:59)
[2020-08-30] MEDS: ASPIRIN 81 MG TAB CHEW PO SCH (10:00)
[2020-08-30] MEDS: metFORMIN 500 MG TAB PO SCH (10:02)
[2020-08-30 13:28] VITALS: BP 144/80
--- NOTE | 2020-08-30 15:16 | Discharge Summary ---
Providers - Providers Date of Admission: 08/30/20 13:11 Date of discharge: 08/30/20 Attending physician: FREDA PAUL Primary care physician: SCRATCH FINISHER Hospitalization Condition: Stable Hospital course: 55-year-old female with known history of COPD, asthma, obstructive sleep apnea, diabetes mellitus and hypertension presenting to the emergency room via EMS today complaining of difficulty in breathing. Symptoms was said to have started about 3 days ago but got worse today. Initial oxygen saturation upon arrival of EMS was about 87% on room air. She was subsequently placed on nonrebreather with improvement of her oxygen saturation to about 96%. She also had nebulizing treatments and IV magnesium en route to the hospital. Patient uses CPAP at night and she is not on any home oxygen. Patient denies any fever or chills, no chest pain, no headache or dizziness, no nausea or vomiting and no abdominal pain. Upon arrival in the emergency room patient was found to be wheezing which was started on nebulizing treatments. She has been admitted for asthma exacerbation with associated hypoxia. Improved to baseline No wheezing (1) Acute respiratory failure with hypoxemia Current Visit: Yes Status: Acute Plan to address problem: Secondary to the asthma exacerbation. We will keep O2 saturation greater or equal to 94%. (2) Asthma exacerbation Current Visit: Yes Status: Acute Qualifiers: Plan to address problem: Patient placed on nebulizing treatments, IV steroids. Patient has nebulizer machine at home and nebulizer solution for the machine (3) Diabetes mellitus Current Visit: No Status: Acute Plan to address problem: We will monitor Accu-Cheks closely and resume routine home medications. (4) GERD (gastroesophageal reflux disease) Current Visit: No Status: Chronic Qualifiers: Esophagitis presence: with esophagitis Plan to address problem: Continue PPIs (5) Hyperlipidemia Current Visit: No Status: Chronic Qualifiers: Hyperlipidemia type: mixed hyperlipidemia Qualified Code(s): E78.2 - Mixed hyperlipidemia Plan to address problem: Continue statins (6) Hypertension Current Visit: No Status: Chronic Qualifiers: Hypertension type: essential hypertension Qualified Code(s): I10 - Essential (primary) hypertension Plan to address problem: Continue blood pressure medications (7) Seizure disorder Current Visit: No Status: Chronic Plan to address problem: Patient has history of seizures at a young age. She is not on any seizure medications at home Does not want any seizure medications now. She is on gabapentin for fibromyalg ia (8) DVT prophylaxis Current Visit: No Status: Acute Plan to address problem: Patient was placed on subcutaneous Lovenox. Patient to continue aspirin 81 mg once a day and regular walking (9) Full code status Current Visit: Yes Status: Acute Disposition: DC-01 TO HOME OR SELFCARE Time spent for discharge: 32 minutes - Discharge Diagnoses (1) Acute respiratory failure with hypoxemia Status: Acute (2) Asthma exacerbation Status: Acute Qualifiers: (3) Full code status Status: Acute (4) DVT prophylaxis Status: Acute Core Measure Documentation - Palliative Care Palliative Care/ Comfort Measures: Not Applicable - Core Measures Any of the following diagnoses?: none Exam - Constitutional Vitals: Temp Pulse Resp BP Pulse Ox 98.2 F 85 18 144/80 93 08/30/20 11:46 08/30/20 14:03 08/30/20 14:03 08/30/20 11:46 08/30/20 11:46 General appearance: Present: no acute distress, well-nourished - EENT Eyes: Present: PERRL ENT: hearing intact, clear oral mucosa - Neck Neck: Present: supple, normal ROM - Respiratory Respiratory effort: normal Respiratory: bilateral: CTA - Cardiovascular Heart rate: 8 Rhythm: regular Heart Sounds: Present: S1 & S2. Absent: rub, click - Extremities Extremities: pulses symmetrical, No edema Peripheral Pulses: within normal limits - Abdominal General gastrointestinal: Present: soft, non-tender, non-distended, normal bowel sounds Female genitourinary: Present: normal - Integumentary Integumentary: Present: clear, warm, dry - Musculoskeletal Musculoskeletal: gait normal, strength equal bilaterally - Psychiatric Psychiatric: appropriate mood/affect, intact judgment & insight - Neurologic Neurologic: CNII-XII intact, moves all extremities Plan Activity: no restrictions Diet: low salt Follow up with: PRIMARY CARE, [Primary Care Provider] - 3-5 Days
== END 2020-08-30 16:00 | disposition home or self-care (01) | DRG 189 ==
LOC: ED 18:02 → 3A 21:28 → OBSVTOIN 08-30 13:11
PROVIDERS: ADMIT Internal Medicine Geriatric Medicine; ATTEND Internal Medicine
PROC: 4A033R1 Measurement of Arterial Saturation, Peripheral, Percutaneous Approach (ICD-10-PCS; principal; 2020-08-28)
DX: J96.01 Acute respiratory failure with hypoxia (principal); J45.51 Severe persistent asthma with (acute) exacerbation; I10 Essential (primary) hypertension; J44.9 Chronic obstructive pulmonary disease, unspecified; E11.9 Type 2 diabetes mellitus without complications; G47.33 Obstructive sleep apnea (adult) (pediatric); Z88.8 Allergy status to other drugs, medicaments and biological substances; Z91.013 Allergy to seafood; Z79.82 Long term (current) use of aspirin; Z79.84 Long term (current) use of oral hypoglycemic drugs; Z86.73 Personal history of transient ischemic attack (TIA), and cerebral infarction without residual deficits; M19.90 Unspecified osteoarthritis, unspecified site; G43.909 Migraine, unspecified, not intractable, without status migrainosus; F41.9 Anxiety disorder, unspecified; G89.29 Other chronic pain; E66.9 Obesity, unspecified; Z68.41 Body mass index [BMI] 40.0-44.9, adult; K21.00 Gastro-esophageal reflux disease with esophagitis, without bleeding; E78.2 Mixed hyperlipidemia; G40.909 Epilepsy, unspecified, not intractable, without status epilepticus
CPT/HCPCS: 36415; 71045; 80048; 80076; 82140; 82803; 82962; 83880; 84484; 85025; 85610; 85730; 93005; 94640; 94644; 94660; 94760; 96374; G0378; A9270-GY; J1650; J1815; J2920

== ENCOUNTER 2020-11-13 11:51 | Emergency (ER) | payer MEDICAID ==
[2020-11-13 12:19] VITALS: BP 156/64
--- NOTE | 2020-11-13 12:52 | Emergency Department Report ---
ED ENT HPI - General Chief complaint: Dental/Oral Stated complaint: TOOTHACHE Time Seen by Provider: 11/13/20 12:47 Source: patient Mode of arrival: Ambulatory Limitations: No Limitations - History of Present Illness Initial comments: 55-year-old female that presents to the emergency room for 2-day history of dental pain and woke up this morning with dental swelling to the right jaw. Patient states that she is aware that she has multiple dental caries and is followed by Dr. Pietro FUCHS at [facility]. Patient states that she contacted her dentist and he told her to go to the emergency room to get antibiotics. Patient denies any fever chills no nausea no vomiting. Patient states that she is waiting to have dental surgery in a week to 2 weeks. MD complaint: tooth pain Onset/Timin -: days(s) Location: tooth # Severity scale (0 -10): 7 Quality: stabbing, aching, sharp Consistency: constant Improves with: none Worsens with: eating Context- Dental: history of dental caries, poor dental care - Related Data Home Medications Medication Instructions Recorded Confirmed Last Taken Fluticasone/Salmeterol [Advair 1 each IH BID 10/11/18 08/28/20 05/20/19 500-50 Diskus] Duloxetine HCl [Cymbalta] 60 mg PO QDAY 05/20/19 08/28/20 Unknown Aspirin BABY CHEW TAB 81 mg PO QDAY 04/17/20 08/28/20 Unknown Valsartan/Hydrochlorothiazide 1 each PO DAILY 04/17/20 08/28/20 Unknown [Valsartan-Hctz 160-12.5 mg Tab] Previous Rx's Medication Instructions Recorded Last Taken Type lisinopriL [Zestril TAB] 10 mg PO QDAY tablet 07/11/18 05/20/19 Rx HYDROcodone/APAP 10-325 [Bruning 1 each PO 5XD PRN #20 tablet 05/24/19 Unknown Rx 10-325 mg TAB] Pravastatin [Pravachol] 20 mg PO QHS #30 tablet 05/24/19 Unknown Rx metFORMIN [Glucophage] 500 mg PO BIDWM #60 tablet 05/24/19 Unknown Rx Prednisone [predniSONE (Ashlee) ER 40 mg PO DAILY #5 tablet. 04/19/20 Unknown Rx TAB] Aspirin [Aspirin BABY CHEW TAB] 81 mg PO QDAY tab.chew 08/30/20 Unknown Rx Cyclobenzaprine [Flexeril 10 MG 10 mg PO TID PRN tablet 08/30/20 Unknown Rx TAB] DULoxetine [Cymbalta] 60 mg PO QDAY capsule 08/30/20 Unknown Rx Gabapentin 900 mg PO TID capsule 08/30/20 Unknown Rx Prednisone [predniSONE 10 mg 10 mg PO .TAPER #1 tab.ds.pk 08/30/20 Unknown Rx (6-Day Pack, 21 Tabs)] Clindamycin [Clindamycin CAP] 300 mg PO Q8H 10 Days #30 cap 11/13/20 Unknown Rx Ibuprofen [Motrin 600 MG tab] 600 mg PO Q8H PRN #30 tablet 11/13/20 Unknown Rx Allergies Allergy/AdvReac Type Severity Reaction Status Date / Time pregabalin [From Lyrica] Allergy Unknown Verified 04/17/20 17:34 topiramate [From Topamax] Allergy Seizure Verified 04/17/20 17:34 shellfish Allergy Hives Uncoded 04/17/20 17:34 paragoric AdvReac Unknown Uncoded 04/17/20 17:34 ED Dental HPI - General Chief complaint: Dental/Oral Stated complaint: TOOTHACHE Time Seen by Provider: 11/13/20 12:47 Source: patient Mode of arrival: Ambulatory Limitations: No Limitations - Related Data Home Medications Medication Instructions Recorded Confirmed Last Taken Fluticasone/Salmeterol [Advair 1 each IH BID 10/11/18 08/28/20 05/20/19 500-50 Diskus] Duloxetine HCl [Cymbalta] 60 mg PO QDAY 05/20/19 08/28/20 Unknown Aspirin BABY CHEW TAB 81 mg PO QDAY 04/17/20 08/28/20 Unknown Valsartan/Hydrochlorothiazide 1 each PO DAILY 04/17/20 08/28/20 Unknown [Valsartan-Hctz 160-12.5 mg Tab] Previous Rx's Medication Instructions Recorded Last Taken Type lisinopriL [Zestril TAB] 10 mg PO QDAY tablet 07/11/18 05/20/19 Rx HYDROcodone/APAP 10-325 [Bruning 1 each PO 5XD PRN #20 tablet 05/24/19 Unknown Rx 10-325 mg TAB] Pravastatin [Pravachol] 20 mg PO QHS #30 tablet 05/24/19 Unknown Rx metFORMIN [Glucophage] 500 mg PO BIDWM #60 tablet 05/24/19 Unknown Rx Prednisone [predniSONE (Ashlee) ER 40 mg PO DAILY #5 tablet.dr 04/19/20 Unknown Rx TAB] Aspirin [Aspirin BABY CHEW TAB] 81 mg PO QDAY tab.chew 08/30/20 Unknown Rx Cyclobenzaprine [Flexeril 10 MG 10 mg PO TID PRN tablet 08/30/20 Unknown Rx TAB] DULoxetine [Cymbalta] 60 mg PO QDAY capsule 08/30/20 Unknown Rx Gabapentin 900 mg PO TID capsule 08/30/20 Unknown Rx Prednisone [predniSONE 10 mg 10 mg PO .TAPER #1 tab.ds.pk 08/30/20 Unknown Rx (6-Day Pack, 21 Tabs)] Clindamycin [Clindamycin CAP] 300 mg PO Q8H 10 Days #30 cap 11/13/20 Unknown Rx Ibuprofen [Motrin 600 MG tab] 600 mg PO Q8H PRN #30 tablet 11/13/20 Unknown Rx Allergies Allergy/AdvReac Type Severity Reaction Status Date / Time pregabalin [From Lyrica] Allergy Unknown Verified 04/17/20 17:34 topiramate [From Topamax] Allergy Seizure Verified 04/17/20 17:34 shellfish Allergy Hives Uncoded 04/17/20 17:34 paragoric AdvReac Unknown Uncoded 04/17/20 17:34 ED Review of Systems ROS: Stated complaint: TOOTHACHE Other details as noted in HPI Comment: All other systems reviewed and negative ED Past Medical Hx - Past Medical History Hx Hypertension: Yes Hx CVA: Yes (TIA) Hx Heart Attack/AMI: No (STRESS TEST NEG 2018, cardiac cath 2019 normal) Hx Congestive Heart Failure: No Hx Diabetes: Yes (Pre-diabetes per pt.) Hx Deep Vein Thrombosis: No Hx Pulmonary Embolism: No Hx GERD: Yes Hx Liver Disease: No Hx Renal Disease: No Hx Sickle Cell Disease: No Hx Arthritis: Yes Hx Headaches / Migraines: Yes Hx Seizures: Yes Hx Kidney Stones: No Hx Psychiatric Treatment: Yes (MD, ANXIETY, CHRONIC PAIN) Hx Asthma: Yes Hx COPD: No Hx Tuberculosis: No Hx Dementia: No Hx HIV: No Additional medical history: scoliosis, FIBROMYALGIA, Vertigo, OBESE; post menopausal - Surgical History Hx Coronary Stent: No Hx Open Heart Surgery: No Hx Pacemaker: No Hx Internal Defibrillator: No Hx Cholecystectomy: Yes Hx Appendectomy: Yes Hx Breast Surgery: No Additional Surgical History: Tubal ligation. NECK SURGERY 2016 - Social History Smoking Status: Never Smoker Substance Use Type: None - Medications Home Medications: Home Medications Medication Instructions Recorded Confirmed Last Taken Type lisinopriL [Zestril TAB] 10 mg PO QDAY tablet 07/11/18 08/28/20 05/20/19 Rx Fluticasone/Salmeterol [Advair 1 each IH BID 10/11/18 08/28/20 05/20/19 History 500-50 Diskus] Duloxetine HCl [Cymbalta] 60 mg PO QDAY 05/20/19 08/28/20 Unknown History HYDROcodone/APAP 10-325 [Bruning 1 each PO 5XD PRN #20 tablet 05/24/19 08/28/20 Unknown Rx 10-325 mg TAB] Pravastatin [Pravachol] 20 mg PO QHS #30 tablet 05/24/19 08/28/20 Unknown Rx metFORMIN [Glucophage] 500 mg PO BIDWM #60 tablet 05/24/19 08/28/20 Unknown Rx Aspirin BABY CHEW TAB 81 mg PO QDAY 04/17/20 08/28/20 Unknown History Valsartan/Hydrochlorothiazide 1 each PO DAILY 04/17/20 08/28/20 Unknown History [Valsartan-Hctz 160-12.5 mg Tab] Prednisone [predniSONE (Ashlee) ER 40 mg PO DAILY #5 tablet.dr 04/19/20 08/28/20 Unknown Rx TAB] Aspirin [Aspirin BABY CHEW TAB] 81 mg PO QDAY tab.chew 08/30/20 Unknown Rx Cyclobenzaprine [Flexeril 10 MG 10 mg PO TID PRN tablet 08/30/20 Unknown Rx TAB] DULoxetine [Cymbalta] 60 mg PO QDAY capsule 08/30/20 Unknown Rx Gabapentin 900 mg PO TID capsule 08/30/20 Unknown Rx Prednisone [predniSONE 10 mg 10 mg PO .TAPER #1 tab.ds.pk 08/30/20 Unknown Rx (6-Day Pack, 21 Tabs)] Clindamycin [Clindamycin CAP] 300 mg PO Q8H 10 Days #30 cap 11/13/20 Unknown Rx Ibuprofen [Motrin 600 MG tab] 600 mg PO Q8H PRN #30 tablet 11/13/20 Unknown Rx ED Physical Exam - General Limitations: No Limitations General appearance: alert, in no apparent distress - Head Head exam: Present: atraumatic, normocephalic - Eye Eye exam: Present: normal appearance - ENT ENT exam: Present: mucous membranes moist - Expanded ENT Exam Expanded Teeth exam: Present: dental caries, gingival enlargement - Neck Neck exam: Present: normal inspection, full ROM - Respiratory Respiratory exam: Absent: chest wall tenderness - Cardiovascular Cardiovascular Exam: Present: regular rate, normal rhythm. Absent: systolic murmur, diastolic murmur, rubs, gallop - Back Exam Back exam: Present: normal inspection - Neurological Exam Neurological exam: Present: alert, oriented X3 - Psychiatric Psychiatric exam: Present: normal affect, normal mood - Skin Skin exam: Present: warm, dry, intact, normal color. Absent: rash ED Course Vital Signs 11/13/20 12:11 Temperature 99.7 F H Pulse Rate 97 H Respiratory 20 Rate Blood Pressure 156/64 O2 Sat by Pulse 95 Oximetry ED Medical Decision Making - Medical Decision Making 55-year-old female that presents to the emergency room for 2-day history of dental pain and woke up this morning with dental swelling to the right jaw. Patient states that she is aware that she has multiple dental caries and is followed by Dr. Pietro FUCHS at [facility]. Patient states that she contacted her dentist and he told her to go to the emergency room to get antibiotics. Patient denies any fever chills no nausea no vomiting. Patient states that she is waiting to have dental surgery in a week to 2 weeks. Dental abscess right lower jaw. Patient replaced on clindamycin 300 mg every 8 hours for 10 days ibuprofen 600 mg p.o. every 8 hours as needed. Patient is to follow back up with her doctor at [facility] Dr. Pietro FUCHS. Critical care attestation.: If time is entered above; I have spent that time in minutes in the direct care of this critically ill patient, excluding procedure time. ED Disposition Clinical Impression: Abscess, dental Disposition: DC- TO HOME OR SELFCARE Is pt being admited?: No Does the pt Need Aspirin: No Condition: Stable Instructions: Dental Abscess Additional Instructions: Complete antibiotics as prescribed take pain medication as needed. Follow-up your dentist. Prescriptions: Clindamycin [Clindamycin CAP] 300 mg PO Q8H 10 Days #30 cap Ibuprofen [Motrin 600 MG tab] 600 mg PO Q8H PRN #30 tablet PRN Reason: Pain Referrals: [facility] [Outside] - 3-5 Days
== END 2020-11-13 13:09 | disposition home or self-care (01) ==
LOC: ED 11:51
DX: K08.89 Other specified disorders of teeth and supporting structures (principal); I10 Essential (primary) hypertension; E11.9 Type 2 diabetes mellitus without complications; M19.90 Unspecified osteoarthritis, unspecified site; K21.9 Gastro-esophageal reflux disease without esophagitis; G43.909 Migraine, unspecified, not intractable, without status migrainosus; F41.9 Anxiety disorder, unspecified; J45.909 Unspecified asthma, uncomplicated; E66.9 Obesity, unspecified; Z68.41 Body mass index [BMI] 40.0-44.9, adult; Z90.49 Acquired absence of other specified parts of digestive tract; Z79.899 Other long term (current) drug therapy; Z91.013 Allergy to seafood; Z88.8 Allergy status to other drugs, medicaments and biological substances; Z86.73 Personal history of transient ischemic attack (TIA), and cerebral infarction without residual deficits; Z98.51 Tubal ligation status; Z98.890 Other specified postprocedural states
CPT/HCPCS: 99281

== ENCOUNTER 2021-06-14 23:16 | Emergency (ER) | payer MEDICAID | END 2021-06-15 | LOC: ED 23:16 | DX: I46.9 Cardiac arrest, cause unspecified (principal); I10 Essential (primary) hypertension; E11.9 Type 2 diabetes mellitus without complications; K21.9 Gastro-esophageal reflux disease without esophagitis; M19.90 Unspecified osteoarthritis, unspecified site; F12.90 Cannabis use, unspecified, uncomplicated; J45.909 Unspecified asthma, uncomplicated; F41.9 Anxiety disorder, unspecified; G89.29 Other chronic pain; Z86.73 Personal history of transient ischemic attack (TIA), and cerebral infarction without residual deficits; Z88.8 Allergy status to other drugs, medicaments and biological substances; Z91.013 Allergy to seafood; Z79.899 Other long term (current) drug therapy; Z79.82 Long term (current) use of aspirin | CPT/HCPCS: 31500; 92950; 99285; J0171 ==